=== PATIENT | male | born 1930 | race Caucasian/White ===

== ENCOUNTER → 2018-09-21 08:18 | Day surgery (SDC) | payer MEDICARE, OTHER ==
[~2018-09-21 08:18] MED LIST: Heparin 2 UNITS/ML IVPREMIX* 3,000 UNIT/1,500 ML BAG IV ONE; Heparin(*) 1000 UNIT/ML 10 ML VIAL CATH LAB IV ONE; Iohexol 350 (CONTRAST) 200 ML MDV IV ONE; Lidocaine 1% INJ* 10 MG/ML 30 ML SDV ONE; Midazolam* 1 MG/ML 5 ML VIAL (5 MG) ONE; NS 0.9% 1000 ML** 1,000 ML IV SCH; VERAPAMIL 2.5 MG/ML 2 ML VIAL ** 5 mg/2 ml ONE; fentaNYL* 50 MCG/ML 2 ML VIAL (100 MCG VIAL) ONE; nitroGLYCERIN DRIP* 25,000 MCG/250 ML BTL ONE
[2018-09-21 13:43] VITALS: BP 117/60
--- NOTE | 2018-09-22 14:04 | CATH ---
"*[facility]* [place] [address] Main: [phone] [email or web address] Cardiac Catheterization Patient: Mk Conroy : 1930 Study Date: 09/21/2018 Age: 88 Gender: M HR: Height: 70 in /177.8 cm BSA: 1.93 m^2 Weight: 165 lb /75 kg BMI: 23.7 kg/m^2 Business Banking Representative: Miranda Westbrook MD Referring Physician: Jayda Magaña MD - Left coronary angiography. - Right coronary angiography. Summary: 1. LAD: Proximal vessel lesion: There is a 50% stenosis. Mid-vessel lesion: There is a 50% stenosis. 2. Ramus intermedius: Proximal vessel lesion: There is a 50% stenosis. 3. Left circumflex: Distal vessel lesion: There is an 80% stenosis. 4. Lateral 1st obtuse marginal: Lesion: There is a 100% stenosis. 5. Right posterior descending: Mid-vessel lesion: There is a 90% stenosis. 6. 1st right posterolateral: Lesion: There is a 65% stenosis. 7. Mod-severe multilesion multivessel disease. History: Atrial fibrillation. Arrhythmia. Stable angina. 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 Aortic valve disease. Mitral valve disease. Aortic stenosis. Functional status: CCS class II (slight limitation of ordinary activity). Risk factors: Hypertension. Dyslipidemia. Family history is significant for coronary artery disease. Medications: The patient received no antianginal therapy in the last two weeks. Labs, prior tests, procedures, and surgery: Blood tests: International normalized ratio (INR) of 1.15. Serum potassium (K) of 4.7 mEq/l. Serum sodium (Na) of 140 mEq/l. Serum creatinine (current admission) of 0.94 mg/dl. Blood urea nitrogen of 16 mg/dl. Glucose of 103 mg/dl. Platelet count of 88 th/ul. White blood cell count (WBC) of 0.01 th/ul. Red blood cell count (RBC) of 5170 th/ul. Hematocrit of 50 %. Hemoglobin (pre-procedure) of 16.8 g/dl. Study data: Study status: Cardiac cath: elective. Location: Catheterization laboratory. Consent: The risks, benefits, and alternatives to the procedure were explained to the patient and/or their healthcare internet sales representative and written informed consent was obtained. All available pre-procedure labs were reviewed. Height: 177.8 cm. 70 in. Weight: 75 kg. 165 lb. Body surface area: 1.93 m^2. Body mass index: 23.7 kg/m^2. Procedure: 1. Initial setup. The patient was brought to the laboratory. Surface ECG leads, blood pressure measurements, and pulse oximetric signals were monitored. A baseline seven lead ECG was recorded. A time out was observed per protocol. 2. Skin preparation. The planned puncture sites were prepped and draped in the usual sterile manner. 3. Local anesthesia. 1% lidocaine was administered. 4. Local anesthesia. 1% lidocaine (1 ml) was administered. 5. Right radial artery access. A 6F Glidesheath Slender sheath was advanced into the vessel. 6. Selective left coronary angiography. A 5F TIG 4.0 catheter was advanced into the left coronary vessel ostium under fluoroscopic guidance. Contrast was injected. Images were obtained in multiple projections. 7. Selective right coronary angiography. A 5F FR 4.0 Impulse catheter was advanced into the right coronary vessel ostium under fluoroscopic guidance. Contrast was injected. Images were obtained in multiple projections. 8. Right radial artery hemostasis. Vessel closure was achieved with a Regular Vasc Band device. Hemostasis was successfully obtained. Study completion: Minimal estimated blood loss. All catheters inserted during the procedure were removed. There were no apparent complications. Administered medications: VERSED (Midazolam), 0.5mg, IV. Fentanyl, 25mcg, IV. (Radial) Nitroglycerin, 300mcg, intra-arterially. (Radial) Verapamil, 3mg, intra-arterially. (Radial) Heparin, 3,000units, intra-arterially. NaCl 0.9% , infusion , at a rate of 100 ml/hr. Contrast: Omnipaque 350 65 ml (total dose). Omnipaque 350 135 ml (wasted). Radiation: Fluoroscopy dose: 88.5 cGy. Discharge: The patient tolerated the procedure well and was discharged from the lab in stable condition. Findings Coronary arteries: The coronary circulation is right dominant. The right coronary gives rise to 1 posterolateral. Left main: Patent. LAD: The proximal vessel is heavily calcified. Proximal vessel lesion: There is a 50% stenosis. Mid-vessel lesion: There is a 50% stenosis. 1st diagonal: Proximal vessel lesion: There is a 40% stenosis. Ramus intermedius: Proximal vessel lesion: There is a 50% stenosis. Left circumflex: The middle portion of the vessel is moderately calcified. Distal vessel lesion: There is an 80% stenosis. Lateral 1st obtuse marginal: Lesion: There is a 100% stenosis. Right coronary: The proximal vessel is moderately calcified. Right posterior descending: Mid-vessel lesion: There is a 90% stenosis. 1st right posterolateral: Lesion: There is a 65% stenosis. Hemodynamics: + + + |Stage description |Condition 1 -| + + + |Arterial pressure s/d (m)|109/59 (81) | + + + Prepared and electronically signed by Miranda Westbrook MD 09/22/2018 14:03"
== END | disposition home or self-care (01) ==
LOC: CHICATH 08:18
PROVIDERS: ATTEND Internal Medicine Cardiovascular Disease
DX: I08.3 Combined rheumatic disorders of mitral, aortic and tricuspid valves (principal); I25.119 Atherosclerotic heart disease of native coronary artery with unspecified angina pectoris; I48.91 Unspecified atrial fibrillation; I10 Essential (primary) hypertension; E78.5 Hyperlipidemia, unspecified
CPT/HCPCS: 93454; 99156; J1644; J2250; J3010

== ENCOUNTER 2018-11-02 13:36 | Observation (INO) | payer MEDICARE, OTHER ==
--- NOTE | 2018-11-02 14:43 | ED ---
Dizziness - History Of Current Complaint Chief Complaint: EDGeneral Stated Complaint: BP ISSUE PER PT Time Seen by Provider: 11/02/18 14:42 Hx Obtained From: Patient - Allergies/Home Medications Allergies/Adverse Reactions: Allergies Allergy/AdvReac Type Severity Reaction Status Date / Time No Known Allergies Allergy Verified 09/01/18 07:38 PMH/Surg Hx/FS Hx/Imm Hx Endocrine/Hematology History: Denies: Hx Diabetes Cardiovascular History: Reports: Hx Coronary Artery Disease, Hx Hypercholesterolemia, Hx Hypertension, Hx Valvular Heart Disease Denies: Hx Angina, Hx Myocardial Infarction, Hx Pacemaker/ICD Respiratory History: Denies: Hx Asthma, Hx Chronic Obstructive Pulmonary Disease (COPD) History: Denies: Hx Chronic Renal Failure Sensory History: Reports: Hx Contacts or Glasses - Glasses with daughter, Hx Hearing Aid Denies: Hx Cataracts Comment Only: Hx Deafness - Pt states he left hearing aids at home Opthamlomology History: Reports: Hx Contacts or Glasses - Glasses with daughter Denies: Hx Cataracts Infectious Disease History: No Infectious Disease History: Denies: Traveled Outside the [place] in Last 30 Days - Social History Alcohol Use: Occasionally Alcohol Amount: 1 glass of wine Substance Use Type: Reports: None Smoking Status (MU): Former Smoker Type: Cigarettes Have You Smoked in the Last Year: No Physical Exam Vital Signs On Initial Exam: Initial Vitals Temp Pulse Resp BP Pulse Ox 98.1 F 89 16 142/87 97 11/02/18 13:37 11/02/18 13:37 11/02/18 13:37 11/02/18 13:37 11/02/18 13:37 Diagnostics - Vital Signs Vital Signs Temp Pulse Resp BP Pulse Ox 11/02/18 14:25 120/60 11/02/18 13:37 98.1 F 89 16 142/87 97 - Laboratory Lab Statement: Any lab studies that have been ordered have been reviewed, and results considered in the medical decision making process. Discharge - Discharge Plan Referrals: Adali Davis MD [Primary Care Provider] -
[2018-11-02 15:12] LABS: ABS Eosinophils 0.2 10^3/ul (0-0.6); ABS Lymphocytes 2.6 10^3/ul (1.0-4.8); ABS Monocytes 0.5 10^3/ul (0-0.8); Eosinophil % 2.2 %; Hematocrit 43 % (42-52); Hemoglobin 14.8 g/dL (14.0-18.0); Lymphocyte % 30.7 %; Mean Corpuscular HGB Conc 34 g/dL (31-36); Mean Corpuscular Hemoglobin 33 pg (27-31); Mean Corpuscular Volume 95 fL (80-94); Nucleated Red Blood Cells % 0.1; Platelet Count 78 10^3/uL (150-450); Red Blood Count 4.56 10^6 /uL (4.18-5.48); Red Cell Distribution Width 15 % (10-15); White Blood Count 8.3 10^3/uL (3.5-10.8)
[2018-11-02 15:13] LABS: Activated Partial Thrombo Time 41.6 seconds (26.0-38.0); INR 1.29 (0.82-1.09)
--- NOTE | 2018-11-02 15:20 | ED ---
Dizziness - HPI Summary HPI Summary: The patient is an 88 y/o M presenting to [facility] with a chief complaint of sudden onset dizziness/lightheadedness followed by hypotension this morning. 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 He held on to the counter with the symptoms lasting for about a minute. He then took his BP on a machine at home, and it read SPB in the 80s and DBP in the 40s, but he usually has BP in the range of 120/70 mmHG. He repeated the BP, but it continued to stay low at home. He is feeling better in the ED. His stores assistant is Dr. Magaña. He currently has a Holter monitor. PMHx: afib, CAD, HLD, HTN, valvular heart disease, TAVR, Former smoker , occasional EtOH, no substance use. While in the room, ED Machine BP: 157/111, Patient's Machine BP: 148/74. - History Of Current Complaint Chief Complaint: EDGeneral Stated Complaint: BP ISSUE PER PT Time Seen by Provider: 11/02/18 14:42 Hx Obtained From: Patient Onset/Duration: Suddenly Timing: Hours Severity Initially: Moderate Severity Currently: Mild Character: Lightheaded, Dizzy Alleviating Factor(s): Rest Associated Signs And Symptoms: Positive: Other: - measured hypotension - Allergies/Home Medications Allergies/Adverse Reactions: Allergies Allergy/AdvReac Type Severity Reaction Status Date / Time No Known Allergies Allergy Verified 09/01/18 07:38 PMH/Surg Hx/FS Hx/Imm Hx Endocrine/Hematology History: Denies: Hx Diabetes Cardiovascular History: Reports: Hx Atrial Fibrillation, Hx Coronary Artery Disease, Hx Hypercholesterolemia, Hx Hypertension, Hx Valvular Heart Disease Denies: Hx Angina, Hx Myocardial Infarction, Hx Pacemaker/ICD Respiratory History: Denies: Hx Asthma, Hx Chronic Obstructive Pulmonary Disease (COPD) History: Denies: Hx Chronic Renal Failure Sensory History: Reports: Hx Contacts or Glasses - Glasses with daughter, Hx Hearing Aid Denies: Hx Cataracts Comment Only: Hx Deafness - Pt states he left hearing aids at home Opthamlomology History: Reports: Hx Contacts or Glasses - Glasses with daughter Denies: Hx Cataracts - Surgical History Surgical History: Yes Surgery Procedure, Year, and Place: 2018 in [place] Infectious Disease History: No Infectious Disease History: Denies: Traveled Outside the [place] in Last 30 Days - Family History Known Family History: Positive: Cardiac Disease - Social History Alcohol Use: Occasionally Alcohol Amount: 1 glass of wine Substance Use Type: Reports: None Hx Tobacco Use: Yes Smoking Status (MU): Former Smoker Type: Cigarettes Have You Smoked in the Last Year: No Review of Systems Positive: Other - hypotension (at home) Neurological: Other - dizziness, lightheaded All Other Systems Reviewed And Are Negative: Yes Physical Exam - Summary Physical Exam Summary: Constitutional: Well-developed, Well-nourished, Alert. (-) Distressed Skin: Warm, Dry HENT: Normocephalic; Atraumatic Eyes: Conjunctiva normal Neck: Musculoskeletal ROM normal neck. (-) JVD, (-) Stridor, (-) Nuchal rigidity Cardio: Rhythm regular, rate normal, Crescendo decrescendo murmur; Intact distal pulses; Radial pulses are 2+ and symmetric. (-) Murmur Pulmonary/Chest wall: Effort normal. (-) Respiratory distress, (-) Wheezes, (-) Rales Abd: Soft, (-) tenderness, (-) Distension, (-) Guarding, (-) Rebound Musculoskeletal: (-) Edema Lymph: (-) Cervical adenopathy Neuro: Alert, Oriented x3 Psych: Mood and affect Normal Triage Information Reviewed: Yes Vital Signs On Initial Exam: Initial Vitals Temp Pulse Resp BP Pulse Ox 98.1 F 89 16 142/87 97 11/02/18 13:37 11/02/18 13:37 11/02/18 13:37 11/02/18 13:37 11/02/18 13:37 Vital Signs Reviewed: Yes Diagnostics - Vital Signs Vital Signs Temp Pulse Resp BP Pulse Ox 11/02/18 14:25 120/60 11/02/18 13:37 98.1 F 89 16 142/87 97 - Laboratory Lab Results: Lab Results 11/02/18 11/02/18 Range/Units 14:57 14:57 WBC 8.3 (3.5-10.8) 10^3/uL RBC 4.56 (4.18-5.48) 10^6 /uL Hgb 14.8 (14.0-18.0) g/dL Hct 43 (42-52) % MCV 95 H (80-94) fL MCH 33 H (27-31) pg MCHC 34 (31-36) g/dL RDW 15 (10-15) % Plt Count 78 L (150-450) 10^3/uL MPV 10.0 (7.4-10.4) fL Neut % (Auto) 60.2 % Lymph % (Auto) 30.7 % Bath % (Auto) 6.3 % Eos % (Auto) 2.2 % Baso % (Auto) 0.6 % Absolute Neuts (auto) 5.0 (1.5-7.7) 10^3/ul Absolute Lymphs (auto) 2.6 (1.0-4.8) 10^3/ul Absolute Monos (auto) 0.5 (0-0.8) 10^3/ul Absolute Eos (auto) 0.2 (0-0.6) 10^3/ul Absolute Basos (auto) 0.0 (0-0.2) 10^3/ul Absolute Nucleated RBC 0.0 10^3/ul Nucleated RBC % 0.1 INR (Anticoag Therapy) 1.29 H (0.82-1.09) APTT 41.6 H (26.0-38.0) seconds Result Diagrams: 11/02/18 14:57 11/02/18 14:57 Lab Statement: Any lab studies that have been ordered have been reviewed, and results considered in the medical decision making process. - Radiology CXR Radiology Interpretation Completed By: Radiologist Summary of Radiographic Findings: Impression: Cardiomegaly. No pleural effusion is noted. No interstitial edema is noted. - CT Chest/Thorax CTA CT Interpretation Completed By: Radiologist Summary of CT Findings: Impression: 1. No pulmonary embolism. 2. Congestive heart failure is suggested by the patient's cardiomegaly, unchanged small left pleural effusion and reflux of contrast into the liver. 3. Status post aortic valve repair. 4. Coronary artery calcific lesions. ED physician has reviewed this report. - EKG 1448 Cardiac Rate: Other Rate - 95 bpm EKG Rhythm: Atrial Fibrillation Summary of EKG Findings: Atrial fibrillation at 95 bpm. LBBB (intermittent hx, per Dr. Martinez). No STEMI. Re-Evaluation - Re-Evaluation First Eval Re-Evaluation Time: 15:25 Comment: Patient states he had surgery in [place]. Second Eval Re-Evaluation Time: 14:50 Comment: Dr. Kunz recommends admission after consulting with the patient. He agrees with this plan. Dizzy Course/Dx - Course Course Of Treatment: 88 y/o male w hx TAVR in [place] several days ago who presents with near syncopal episode and attention. Blood pressure here in the 130s, no acute distress and exam. Well check EKG and labs, discussed with his clinical immunologist in [place], stores assistant here. Per the records patient has a history of bradycardia arrhythmia for which he was taken off his beta delphine. Denies current CP and feels much improved - Diagnoses Provider Diagnoses: Hypotension, Near syncope - Provider Notifications Discussed Care Of Patient With: Miranda Westbrook - interventional cardiology Time Discussed With Above Provider: 15:23 Instructed by Provider To: Other - I discussed the patient's case with Dr. Westbrook concerning the patient's EKG; he notes that the patient had surgery in [place]. At [address] Martinez, who performed the TAVR on the patient , and he states that the LBBB is chronic. He recommends speaking with Dr. Kunz , cardiology. Dr. Kunz agrees to come see the patient at 1544. At 1448, Dr. Kunz suggests admission based on the patient's symptomology. He also recommends Chest/Thorax CTA and Eliquis. I spoke with Dr. Day, hospitalist, and she accepts the patient for admission at 1723. Discharge - Sign-Out/Discharge Documenting (check all that apply): Patient Departure - Patient is accepted for admission by Dr. Day. Patient Received Moderate/Deep Sedation with Procedure: No - Discharge Plan Condition: Stable Disposition: ADMITTED TO [facility] Referrals: Adali Davis MD [Primary Care Provider] - - Billing Disposition and Condition Condition: STABLE Disposition: Admitted to [facility] - Attestation Statements Document Initiated by Scribe: Yes Documenting Scribe: Teresa Faustin Provider For Whom Scribe is Documenting (Include Credential): Dr. Dario Sánchez MD Scribe Attestation: I, Teresa Faustin, scribed for Dr. Dario Sánchez MD on 11/02/18 at 1925. Scribe Documentation Reviewed: Yes Provider Attestation: The documentation as recorded by the scribe, Teresa Faustin accurately reflects the service I personally performed and the decisions made by me, Dr. Dario Sánchez MD Status of Scribe Document: Viewed
[2018-11-02 15:25] LABS: Troponin I 0.04 ng/mL (<0.04)
[2018-11-02 15:26] LABS: ALT 12 U/L (7-52); AST 19 U/L (13-39); Albumin 3.9 g/dL (3.2-5.2); Albumin/Globulin Ratio 1.3 (1-3); Alkaline Phosphatase 98 U/L (34-104); Anion Gap 6 mmol/L (2-11); BUN/Creatinine Ratio 15.5 (8-20); Blood Urea Nitrogen 16 mg/dL (6-24); CO2 Carbon Dioxide 29 mmol/L (22-32); Calcium 9.5 mg/dL (8.6-10.3); Chloride 105 mmol/L (101-111); EGFR African American 82.7 (>60); EGFR Non-African American 68.3 (>60); Globulin 3.1 g/dL (2-4); Glucose 98 mg/dL (70-100); Magnesium 1.8 mg/dL (1.9-2.7); Potassium 4.4 mmol/L (3.5-5.0); Sodium 140 mmol/L (135-145)
[2018-11-02] MEDS ORDERED: Apixaban* 5 MG TAB PO ONE (16:40)
[2018-11-02] MEDS ORDERED: Iodixanol* (CONTRAST) 320 MG/ML 100 ML SDV IV ONE (16:46)
[2018-11-02 17:03] LABS: CRP High Sensitivity 6.61 mg/L (<2.00)
[2018-11-02] MEDS ORDERED: Magnesium Sulfate 2 GM IV* 2 GM/50 ML BAG IVPB ONE (18:02)
--- NOTE | 2018-11-02 18:27 | CONS ---
CC: Dr. Magaña; Dr. Kunz * CARDIOLOGY CONSULTATION NOTE: DATE OF CONSULT: 11/02/18 PATIENT OF: Dr. Magaña. CONSULTING PHYSICIAN: Dr. Dario Sánchez. REASON FOR EVALUATION: Lightheadedness, hypotension. HISTORY OF PRESENT ILLNESS: This is a very pleasant 88-year-old gentleman who has coronary artery disease, aortic stenosis, MR, and recently underwent a TAVR with Dr. Martinez on 10/27/18. At that time, he had a 29-mm S3 valve placed. He had chronic AFib with a slow response and his atenolol was held. He also had an intermittent left bundle. No pauses were noted. It was decided to hold his atenolol and follow up as an outpatient. A Zio was placed. He had an echo performed postprocedure, which showed an improvement in his EF to 55%. It also showed severe LVH, severe enlargement of the left atrium, dilated RV, trace AI with a prosthetic valve, gradients normal for the valve type and size, moderate- to- severe MR. MR appears to be severe, hitting the roof of a very dilated left atrium. Moderate TR, estimated RV/RA pressure gradients 30 mm. He was discharged on 10/29/18, and actually came home to [place] on Wednesday, . He said he was feeling fairly well with no dyspnea on exertion. He says in the past he had dyspnea on exertion, climbing a flight of stairs, or going longer distances. He has been able to get around the house without a problem. Today, he went out and had blood drawn this morning after having orange juice and coffee. He came home to have lunch. After lunch, he decided to help with the safety risk lead, and bending over and standing up to put the dishes away, he noticed he was lightheaded. He denied any vertigo. He denied any chest pain or diaphoresis. He took his blood pressure and found that his blood pressure was 80/40 with heart rates in the 40s. He sat and rested for an hour and a half. He says his blood pressure gradually improved, but because of those findings, he came to the emergency room. Here, he was noted to have blood pressures initially of 142 and 120/60, which have climbed to 160s/low 100s. He says that he did not take any of his medicines yet today. He usually takes them at noon and then again in the evening. He denies any syncope. No chest pain. No palpitations. No orthopnea or PND. No diarrhea, fevers, chills , or sweats. It does not sound like he ate or drank much today except for a couple of cups of decaffeinated coffee and orange juice. PAST MEDICAL HISTORY: Includes atrial fibrillation, hypertension, hyperlipidemia, remote tobacco use discontinued in his 40s, coronary artery disease, intermittent left bundle-branch block, atrial fibrillation, and MR. Apparently, he is anticipating possible correction of the mitral regurgitation and percutaneous revascularization at a future date depending on his progress. PAST SURGICAL HISTORY: Includes hernias bilaterally and TAVR earlier this month. MEDICATIONS: His medications according to the discharge summary include: 1. Amoxicillin p.r.n. 2. Apixaban 5 mg b.i.d. 3. Zetia 10 mg daily. 4. Finasteride 5 mg daily. 5. Lisinopril 40 mg a day. 6. Rosuvastatin 10 mg a day. 7. Triamcinolone. ALLERGIES: He denies any allergies. SOCIAL HISTORY: He has about half a glass of wine on rare occasion. He discontinued tobacco use about 40 years ago. He drinks decaffeinated coffee. 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 REVIEW OF SYSTEMS: Review of systems x10 was negative except as above. PHYSICAL EXAM: He is a well-developed, well-nourished gentleman, appearing younger than stated age. Pulse of 88, blood pressure 172/89. Atraumatic, normocephalic. Extraocular muscles intact. Sclerae anicteric. Carotids 2+ with a right carotid bruit. No significant JVD. Cardiac: S1, S2 with a 1-2/6 systolic ejection murmur at the base and a 3/6 holosystolic murmur at the apex, irregular. There was a Zio monitor take to his chest. Chest was clear. No CVAT. Abdomen: Scaphoid abdomen. No hepatosplenomegaly. Femoral pulses are intact without bruits. Distal pulses are intact. No edema. Motor strength 5/ 5 bilaterally. Deep tendon reflexes 2/4. Alert and oriented x3. Negative Homans sign. DIAGNOSTIC STUDIES/LAB DATA: Include a CBC with hemoglobin of 14.8, hematocrit of 43, platelet count low at 78. Troponin of 0.04. Magnesium 1.8, potassium of 4.4, BUN of 16, creatinine of 1.03. Lactic acid 1.5. EKG revealed atrial fibrillation with an IVCD, poor R-wave progression and PVCs. Chest x-ray revealed no infiltrates; however, there was cardiomegaly. IMPRESSION AND PLAN: My impression is that Mr. Conroy had an episode of feeling dizzy, which was transient for a few seconds, but then he was noted to be hypotensive and persisted, possibilities include dehydration, medication effect, left ventricular dysfunction and arrhythmia including tachy or bradyarrhythmias, as well as ischemic heart disease or pulmonary embolism, which may be less likely in light of his stable O2 sats, but he is at risk based on his age and recent hospitalization and instrumentation. For the time being, I would recommend the followin. Would cautiously restart a low dose of short-acting SENDY inhibitor. 2. Would consider gentle hydration. Would do this cautiously in light of his history of left ventricular dysfunction and mitral regurgitation. 3. We will try to replace his magnesium and potassium. 4. We will try to get the Zio interrogated. 5. I placed a call to Dr. Martinez. 6. Given that he has a left bundle and recently had an AVR, he is a risk for conducting system injury and may require a pacemaker at some point. 7. He is to be observed overnight. 8. He is to continue his apixaban. Further recommendations will depend on his clinical course. [id number]/[id number] #: [id number] MAY[place]
[2018-11-02] MEDS ORDERED: Lisinopril TAB* 10 MG PO ONE ×2 (18:31→18:35)
[2018-11-02] MEDS ORDERED: hydrALAZINE IV* 20 MG/ML VIAL IV SLOW PU ONE (18:33)
[2018-11-02 19:59] LABS: Troponin I 0.04 ng/mL (<0.04)
[2018-11-02] MEDS ORDERED: NON FORMULARY MED* (Apixaban [Eliquis] 5 MG) PO SCH (21:00)
--- NOTE | 2018-11-02 21:11 | HP ---
ADDENDUM NOW INCLUDED ON THIS REPORT CC: Dr. Adali Davis; Dr. Kunz; Dr. Magaña * HISTORY AND PHYSICAL: DATE OF ADMISSION: 11/02/18 PRIMARY CARDIOLOGISTS: Dr. Magaña, Dr. Kunz. PRIMARY CARE PROVIDER: Dr. Adali Davis. CHIEF COMPLAINT: Lightheadedness, hypotension. HISTORY OF PRESENT ILLNESS: This is an 88-year-old male with history of atrial fibrillation, history aortic stenosis, who underwent a TAVR procedure in [place] on 10/27/18, hypertension, coronary artery disease with three-vessel disease, hyperlipidemia, who presents to the emergency room with what is described as possible near syncopal episode. 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 He took a break from his work and sat down and the lightheadedness resolved. However, at that time, he started to check his blood pressure with his blood pressure cuff and noted that his blood pressure was low 105/60, heart rate of 87 which then when he rechecked it was 85/42 and then subsequently 95/60. During that time, the heart rate ranged from 83 through 95. The patient never had any loss of consciousness, no headache. Throughout that entire episode, he did not have any chest pain, no palpitations, no nausea, no vomiting, no diaphoresis. He has no fevers, no chills. In the emergency room, the patient was seen and evaluated, Dr. Kunz was consulted who had recommended ruling out a pulmonary embolism with a chest CTA, and Dr. Kunz also recommended that we try to get an interrogation of he ZIO that the patient has on him as well as discuss the case with Dr. Martinez, the [place] surgeon who performed the TAVR procedure. Subsequently, the hospitalist service was called. PAST MEDICAL HISTORY: Includes: 1. Atrial fibrillation. 2. Aortic stenosis. 3. Hypertension. 4. Hyperlipidemia. 5. Mitral regurgitation. 6. Coronary artery disease. 7. Tobacco use. PAST SURGICAL HISTORY: Includes: 1. Transaortic valvular replacement on 10/27/18 in [place], [place]. 2. Hernia repair. 3. Tonsillectomy. MEDICATIONS: Home medications include: 1. Triamcinolone 1 topical b.i.d. 2. Rosuvastatin 10 mg daily. 3. Lisinopril 40 mg daily. 4. Finasteride 5 mg daily. 5. Ezetimibe 10 mg daily. 6. Eliquis 5 mg b.i.d. The patient reports that he did not take his lisinopril today or his Eliquis, Eliquis was administered in the emergency room. ALLERGIES: No known drug allergies. FAMILY HISTORY: Mother: Cancer. Father: Heart attack. SOCIAL HISTORY: He lives at home with his , former smoker, no alcohol use. REVIEW OF SYSTEMS: As per the HPI. Otherwise, he does not have any fevers, no chills, no cough, no shortness of breath, no rashes or lesions, no abdominal pain, no nausea, no vomiting, no diarrhea. No headaches, no focal neurological weakness. Otherwise, review of systems is per the HPI, otherwise is negative. PHYSICAL EXAMINATION GENERAL: This is an elderly male, lying in the ER stretcher, in no acute distress. VITAL SIGNS: Blood pressure currently is 159/90, heart rate of 85, respiratory rate of 16, saturation 95% on room air, temperature of 98.4 Fahrenheit. HEENT: Pupils are equal, round, reactive to light. Atraumatic, normocephalic. Extraocular movements are intact. There is no nystagmus. NECK: There is a carotid bruit heard on the right side. There is no JVD. LUNGS: There is no tachypnea, no use of accessory muscles. There is no wheezing, rales, or rhonchi. HEART: There is no chest wall tenderness. S1, S2 present. 2/6 systolic murmur best heard at the apex. Irregularly irregular. There is a ZIO monitor on his chest that we are going to be removing so the family can send it out for interrogation. ABDOMEN: Bowel sounds are normoactive in all 4 quadrants. Abdomen is soft, nontender, nondistended. EXTREMITIES: Pulses 2+ at the radial region. There is no lower extremity edema , no calf tenderness. NEUROLOGICAL: Alert and oriented x3. Motor is 5/5 in all 4 extremities. There is no lower extremity edema with no calf tenderness. DIAGNOSTIC STUDIES/LAB DATA: CTA was done which is negative for acute pulmonary embolism. There is congestive heart failure by the patient's cardiomegaly and unchanged small left pleural effusion and reflux to liver, status post aortic valve repair, and coronary artery calcific lesions. The patient also underwent a chest x-ray which shows cardiomegaly with no pleural effusion and no interstitial edema noted. The patient also underwent an EKG today which showed left bundle-branch block. Left bundle-branch block is not new. Heart rate of 95 with atrial fibrillation rhythm. No ST elevation. Lab work shows a troponin of 0.04, shows magnesium of 1.8 with total bilirubin of 1.5, sodium of 140, potassium of 4.4, chloride of 105, bicarb of 29, BUN of 16, creatinine of 1.03, INR of 1.29. CBC shows WBC of 8.3, hemoglobin of 14.8, hematocrit of 43, platelets of 78. IMPRESSION AND PLAN: 1. What looks like a near syncopal episode: At this point, I have ordered orthostatic vital signs. Hold off on IV fluids as the patient does appear to be euvolemic. The patient had an echocardiogram done most recently in August of 2018 which showed an ejection fraction of 45% to 50%. The patient subsequently has underwent aortic valve replacement. 2. Slightly elevated troponin: EKG does not appear remarkable for ST elevation myocardial infarction. The patient never had any chest pain, this could be demand related due to his episode of hypotension. I will check a second and third troponin. The patient was already evaluated by Cardiology. Continue his home dose Eliquis. 3. Hypertension: Continue his lisinopril. The patient has not taken his lisinopril this morning, I have ordered 20 mg of lisinopril to be given now and then resume 40 mg in the morning. Should the blood pressure be high during the hospital course, consider hydralazine as needed. Currently, the beta-delphine is on hold due to possible high risk of AV eduar block versus a heart block in the patient has undergone TAVR procedure. 4. Atrial fibrillation: Anticoagulation with Eliquis, currently the heart rate is controlled. His home dose of atenolol was discontinued during his hospital stay in [place], [place], for his TAVR procedure. 5. Hypomagnesemia: Repletion has been ordered. 6. Elevated bilirubin: I will order repeat blood work for the morning. I will also check a second and third troponin. Cardiology consultation has already been requested. ADDENDUM: The patient's healthcare proxy is , Odalis and also the daughter is the secondary proxy. The patient is a full code. [id number]/C[facility] #: [id number]/CPS #: [id number] MTDD
--- NOTE | 2018-11-02 21:11 | HP ---
HISTORY AND PHYSICAL: ADDENDUM: The patient's healthcare proxy is , Odalis and also the daughter is the secondary proxy. The patient is a full code. [id number]/CPS #: [id number] MTDD
[2018-11-02] MEDS: TRIAMCINOLONE PASTE 0.1% TOPICAL SCH (22:16)
[2018-11-03 08:18] LABS: Albumin 3.5 g/dL (3.2-5.2); Albumin/Globulin Ratio 1.3 (1-3); BUN/Creatinine Ratio 16.5 (8-20); Calcium 8.7 mg/dL (8.6-10.3); EGFR African American 88.6 (>60); EGFR Non-African American 73.2 (>60); Globulin 2.7 g/dL (2-4); Potassium 4.6 mmol/L (3.5-5.0); Total Bilirubin 1.2 mg/dL (0.2-1.0); Total Protein 6.2 g/dL (6.4-8.9)
[2018-11-03] MEDS ORDERED: Lisinopril TAB* 10 MG PO SCH (09:00)
[2018-11-03] MEDS: Finasteride TAB* 5 MG PO SCH (09:47)
[2018-11-03] MEDS: Apixaban* 5 MG TAB PO SCH ×2 (09:48→21:18)
[2018-11-03] MEDS: Ezetimibe TAB* 10 MG PO SCH (09:48)
[2018-11-03] MEDS: Atorvastatin* 20 MG TAB PO SCH (09:48)
[2018-11-03] MEDS: TRIAMCINOLONE PASTE 0.1% TOPICAL SCH ×2 (09:50→21:18)
--- NOTE | 2018-11-03 14:49 | PN ---
Subjective Date of Service: 11/03/18 Interval History: Pt feels well. Denies feeling lightheaded. Telem shows no arrhythmias Objective Active Medications: Apixaban (Eliquis*) 5 mg PO BID [facility] Last Admin: 11/03/18 09:48 Dose: 5 mg Atorvastatin Calcium (Lipitor*) 20 mg PO DAILY [facility]; Protocol Last Admin: 11/03/18 09:48 Dose: 20 mg Ezetimibe (Zetia Tab*) 10 mg PO DAILY [facility] Last Admin: 11/03/18 09:48 Dose: 10 mg Finasteride (Proscar Tab*) 5 mg PO DAILY [facility] Last Admin: 11/03/18 09:47 Dose: 5 mg Lisinopril (Prinivil Tab*) 20 mg PO DAILY [facility] Triamcinolone Acetonide (Triamcinolone 0.1% Paste *) 1 applic TOPICAL BID [facility] Last Admin: 11/03/18 09:50 Dose: 1 applic Vital Signs - 8 hr 11/03/18 11/03/18 11/03/18 06:55 06:57 06:59 Temperature 98 F Pulse Rate 81 82 89 Respiratory 16 Rate Blood Pressure 113/58 119/59 130/70 (mmHg) O2 Sat by Pulse 99 99 98 Oximetry 11/03/18 11:39 Temperature 97.6 F Pulse Rate 57 Respiratory 16 Rate Blood Pressure 128/76 (mmHg) O2 Sat by Pulse 98 Oximetry Oxygen Devices in Use Now: None Appearance: 88 yo m in nAD, aAOx3 Eyes: No Scleral Icterus, PERRLA Ears/Nose/Mouth/Throat: NL Teeth, Lips, Gums, Mucous Membranes Moist Neck: NL Appearance and Movements; NL JVP, Trachea Midline Respiratory: Symmetrical Chest Expansion and Respiratory Effort, Clear to Auscultation Cardiovascular: NL Sounds; No Murmurs; No JVD, RRR Abdominal: NL Sounds; No Tenderness; No Distention Lymphatic: No Cervical Adenopathy Extremities: No Edema, No Clubbing, Cyanosis Skin: No Rash or Ulcers, No Nodules or Sclerosis Neurological: Alert and Oriented x 3, NL Muscle Strength and Tone Result Diagrams: 11/02/18 14:57 11/03/18 07:33 Additional Lab and Data: Lab Results 11/02/18 11/02/18 Range/Units 14:57 14:57 WBC 8.3 (3.5-10.8) 10^3/uL RBC 4.56 (4.18-5.48) 10^6 /uL Hgb 14.8 (14.0-18.0) g/dL Hct 43 (42-52) % MCV 95 H (80-94) fL MCH 33 H (27-31) pg MCHC 34 (31-36) g/dL RDW 15 (10-15) % Plt Count 78 L (150-450) 10^3/uL MPV 10.0 (7.4-10.4) fL Neut % (Auto) 60.2 % Lymph % (Auto) 30.7 % Coal % (Auto) 6.3 % Eos % (Auto) 2.2 % Baso % (Auto) 0.6 % Absolute Neuts (auto) 5.0 (1.5-7.7) 10^3/ul Absolute Lymphs (auto) 2.6 (1.0-4.8) 10^3/ul Absolute Monos (auto) 0.5 (0-0.8) 10^3/ul Absolute Eos (auto) 0.2 (0-0.6) 10^3/ul Absolute Basos (auto) 0.0 (0-0.2) 10^3/ul Absolute Nucleated RBC 0.0 10^3/ul Nucleated RBC % 0.1 INR (Anticoag Therapy) 1.29 H (0.82-1.09) APTT 41.6 H (26.0-38.0) seconds Assess/Plan/Problems-Billing Assessment: 88 yo M s/p TAVR on 10/27/18 presented with near syncope - Patient Problems (1) Near syncope Comment: so far no evidence of cardiac arrythmias apart for known A. fib, but pt 's event monitor interrogation will not be back till 24-48 hr from now. As d/w Dr. Kunz, lisinopril dose was lowered. will not OBV on telem x 24 hr and c/ pt home to get another monitoring system from Dr Kunz's office right after d/c (2) Atrial fibrillation Comment: rate controlled (3) DVT prophylaxis Comment: cont Eliquis Status and Disposition: OBV
--- NOTE | 2018-11-03 20:45 | ECHO ---
*[facility]* [place] [address] Fax #: [phone] Transthoracic Echocardiogram Patient: Mk Conroy : 1930 Study Date: 11/03/2018 Age: 88 Gender: M HR: 61 bpm Height: 69 in /175.3 cm BSA: 1.86 m^2 Weight: 155.7 lb /70.8 kg BMI: 23 kg/m^2 *Senior [employer] Consultant: * Annia Gilbert RDCS RN *Referring Physician: * Balta Kunz MD *Reading Physician: * Balta Kunz MD Indications: Syncope. Valvular disease. History: Coronary artery disease. Aortic stenosis. Mitral regurgitation. Risk factors: Former tobacco use. Hypertension. Dyslipidemia. Labs, prior tests, procedures, and surgery: Transcatheter aortic valve replacement with 29mm S3 valve placed. Conclusions Summary: - Left ventricle: The cavity size is normal. Wall thickness is moderately increased. Systolic function is moderately reduced. The estimated ejection fraction is 30-35%. Systolic function is worse from the study of August 2018. Moderate diffuse hypokinesis. Severe hypokinesis of the basal-midinferolateral myocardium. - Right ventricle: The cavity size is mildly dilated. - Left atrium: The atrium is severely dilated. - Right atrium: The atrium is severely dilated. - Mitral valve: Prolapse. There is moderate to severe regurgitation. - Aortic valve: The peak systolic velocity is 1.63 m/sec. The mean systolic gradient is 5.0 mm Hg. The peak systolic gradient is 11.0 mm Hg. The valve area index by the velocity-time integral method is 1.62 cm^2/m^2. The valve area index by the peak velocity method is 1.73 cm^2/m^2. - Pericardium, extracardiac: There is a left pleural effusion. - Pulmonary arteries: Systolic pressure is mildly to moderately increased, estimated to be 44 mm Hg. Study data: Transthoracic echocardiogram. Procedure: Transthoracic echocardiography was performed. Image quality was good. Complete 2D, spectral Doppler, and color flow Doppler. Location: Bedside. Patient status: Observation. Patient room number: 452. The previous study was not available, so comparison is made to the report of August 2018. Rhythm: Atrial fibrillation, LBBB. Findings Left ventricle: The cavity size is normal. Wall thickness is moderately increased. Systolic function is moderately reduced. The estimated ejection fraction is 30-35%. Systolic function is worse from the study of August 2018. Moderate diffuse hypokinesis. Regional wall motion abnormalities: Severe hypokinesis of the basal-midinferolateral myocardium. Left ventricular diastolic function parameters are indeterminate. Right ventricle: The cavity size is mildly dilated. Systolic function is normal. Ventricular septum: The interventricular septum appears dyssynchronous related to LBBB. Left atrium: The atrium is severely dilated. Right atrium: The atrium is severely dilated. Mitral valve: The leaflets are mildly thickened. Prolapse. There is no evidence of stenosis. There is moderate to severe regurgitation. Aortic valve: Prior repair procedures include transcatheter aortic valve replacement. There is a bioprosthetic valve. It appears to be functioning normally. There is a new prosthetic valve in place since the study of August 2018. Stenosis severity has decreased in comparison with the study of August 2018. There is trace regurgitation. Tricuspid valve: The valve is structurally normal. There is no evidence of stenosis. There is moderate regurgitation. Pulmonic valve: The valve is structurally normal. There is no evidence of stenosis. There is mild to moderate regurgitation. Aorta: Aortic root: The aortic root is not dilated. Ascending aorta: The ascending aorta is not dilated. Aortic arch: The aortic arch is not dilated. Pericardium: There is no significant pericardial effusion. There is a left pleural effusion. Pulmonary arteries: Systolic pressure is mildly to moderately increased, estimated to be 44 mm Hg. Systemic veins: Inferior vena cava: Not visualized. Measurements Left ventricle Value Ref Aortic valve Value Ref RENEA, LAX 4.5 cm 4.2 - Pollo diam, ED 2.4 cm ---- 5.8 Pollo diam/bsa, ED 1.3 cm/m^2 ---- ESD, LAX 3.8 cm 2.5 - Peak v, S 1.63 m/sec ---- 4.0 VTI, S 31.0 cm ---- FS, LAX (L) 17 % 25 - 43 Mean grad, S 5.0 mm Hg ---- PW, ED (H) 1.3 cm 0.6 - Peak grad, S 11.0 mm Hg ---- 1.0 LVOT/AV, VTI ratio 0.73 ---- IVS/PW, ED 1.24 -------- SHAWN, VTI 3.01 cm^2 ---- E', lat pollo, TDI (L) 9.1 cm/sec >=10.0 SHAWN, Vmax 3.21 cm^2 -- -- E/e', lat pollo, TDI 14 -------- E', med pollo, TDI 7.8 cm/sec >=7.0 Mitral valve Value Re f E/e', med pollo, TDI 16 -------- Peak E 1.23 m/sec ---- E', avg, TDI 8.5 cm/sec -------- Decel time 146 ms ---- E/e', avg, TDI (H) 15 <=14 Peak grad, D 6.1 mm Hg -- -- ERO, PISA 0.35 cm^2 ---- LVOT Value Ref MR vol, PISA 51 ml ---- Diam, S 2.30 cm -------- MR fraction, PISA 35 % ---- Area 4.2 cm^2 -------- Peak sherita, S 1.26 m/sec -------- Pulmonic valve Value Ref VTI, S 22.5 cm -------- Peak v, S 0.67 m/sec ---- Peak grad, S 6 mm Hg -------- Peak grad, S 2.0 mm Hg ---- Mean grad, S 4 mm Hg -------- SV 93 ml -------- Tricuspid valve Value Ref SV/bsa 50 ml/m^2 -------- Peak RV-RA grad, S 36 mm Hg ---- Max TR sherita 2 m/sec ---- Ventricular septum Value Ref IVS, ED (H) 1.6 cm 0.6 - Aortic root Value Ref 1.0 Root diam 2.7 cm <4.0 Right ventricle Value Ref Ascending aorta Value Ref RENEA, LAX 3.6 cm -------- AAo AP diam, S 2.5 cm ---- RENEA minor ax, A4C (H) 3.9 cm 1.9 - mid 3.5 Aortic arch Value Ref Pressure, S 44 mm Hg -------- Arch diam 2.2 cm ---- Left atrium Value Ref Decending aorta Value Ref ML dim, A4C 5.7 cm -------- Blake peak sherita 0.32 m/sec ---- SI dim, A4C 7.0 cm -------- Vol/bsa, ES, 1-p (H) 69 ml/m^2 12 - 37 Pulmonary artery Value Ref A4C Pressure, S 44.0 mm Hg ---- Vol/bsa, ES, A/L (H) 79 ml/m^2 16 - 34 Right atrium Value Ref ML dim, ES, A4C (H) 5.7 cm 2.6 - 4.4 SI dim, ES, A4C (H) 7.0 cm 3.4 - 5.3 Estimated RAP 8 mm Hg -------- Legend: (L) and (H) izabella values outside specified reference range. Prepared and electronically signed by Balta Kunz MD 11/03/2018 20:43
[2018-11-03] MEDS: Triamcinolone 0.025% OINT * 15 GM TUBE TOPICAL SCH (22:26)
[2018-11-04 07:42] LABS: Hematocrit 41 % (42-52); Mean Corpuscular HGB Conc 35 g/dL (31-36); Mean Corpuscular Hemoglobin 32 pg (27-31); Mean Corpuscular Volume 94 fL (80-94); Mean Platelet Volume 11.1 fL (7.4-10.4); Platelet Count 69 10^3/uL (150-450); Red Blood Count 4.32 10^6 /uL (4.18-5.48); Red Cell Distribution Width 15 % (10-15)
[2018-11-04 07:53] LABS: BUN/Creatinine Ratio 17.4 (8-20); C Reactive Protein 4.91 mg/L (<8.01); CRP High Sensitivity 3.93 mg/L (<2.00); Calcium 8.7 mg/dL (8.6-10.3); EGFR African American 101.8 (>60); EGFR Non-African American 84.1 (>60); Potassium 4.2 mmol/L (3.5-5.0)
[2018-11-04] MEDS ORDERED: Lisinopril TAB* 10 MG PO SCH (09:00)
[2018-11-04 09:31] LABS: ABS Eosinophils 0.2 10^3/ul (0-0.6); ABS Lymphocytes 2.4 10^3/ul (1.0-4.8); ABS Monocytes 0.4 10^3/ul (0-0.8); ABS Neutrophils 2.9 10^3/ul (1.5-7.7); Large Platelets Present; Lymphocyte % 40.3 %; Nucleated Red Blood Cells % 0.1
[2018-11-04 09:46] LABS: Erythrocyte Sed Rate 8 mm/Hr (0-19)
[2018-11-04] MEDS: Finasteride TAB* 5 MG PO SCH (10:51)
[2018-11-04] MEDS: Ezetimibe TAB* 10 MG PO SCH (10:51)
[2018-11-04] MEDS: Apixaban* 5 MG TAB PO SCH (10:51)
[2018-11-04] MEDS: Atorvastatin* 20 MG TAB PO SCH (10:52)
[2018-11-04] MEDS: Triamcinolone 0.025% OINT * 15 GM TUBE TOPICAL SCH (10:54)
[2018-11-04 11:46] VITALS: BP 123/63
--- NOTE | 2018-11-04 15:16 | TRS ---
CC: Dr. Adali Davis; Dr. Martinez, Cardiology Department, [facility], [place], [place]; Dr. Kunz * DISCHARGE/TRANSFER SUMMARY: DATE OF ADMISSION: 11/02/18 DATE OF ANTICIPATED TRANSFER: To [facility], 11/04/18. PRIMARY CARE PROVIDER: Dr. Adali Davis. DISPOSITION AT DISCHARGE: Transfer to [facility]. CONDITION AT DISCHARGE: Guarded. TRANSFER DIAGNOSES: 1. Paroxysmal ventricular tachycardia. 2. Near syncope. SECONDARY DIAGNOSES: 1. History of transcatheter aortic valve replacement performed at [facility] on 10/27/[address] Martinez. 2. History of chronic atrial fibrillation. 3. Hypertension. 4. Hyperlipidemia. 5. Mitral regurgitation. 6. Coronary artery disease. CURRENT MEDICATIONS: At the time of transfer include: 1. Lisinopril 20 mg daily. 2. Finasteride 5 mg daily. 3. Zetia 10 mg daily. 4. Atorvastatin 20 mg daily. 5. Apixaban 5 mg b.i.d. 6. Triamcinolone ointment 1 application b.i.d. CONSULTATION DURING THE HOSPITAL STAY: Included Dr. Kunz from Cardiology. DIAGNOSTIC STUDIES/LAB DATA: On 11/04/18, sodium of 136, potassium 4.2, chloride 106, carbon dioxide 20, BUN 15, creatinine 0.86. C-reactive protein was 4.9. CBC: White blood cell count of 6.0, hemoglobin of 14.0, hematocrit of 41, and platelets of 69, which appears to be chronic in this patient. CT angiogram of the chest obtained on 11/02/18, impression: "No pulmonary embolism. Congestive heart failure suggested by the patient's cardiomegaly, unchanged small left pleural effusion and reflux of contrast into the liver. Status post aortic valve repair. Coronary artery calcific lesions." Transthoracic echocardiogram obtained on 11/03/18 showed EF of 30% to 35% with systolic function moderately reduced with [id number] mitral regurgitation and mitral valve prolapse, severely dilated right atrium, increased pulmonary pressures at 44 mmHg. The aortic valve area index by the velocity time integral method was 1.62 cm2. The valve area index by peak velocity method was 1.73 cm2. HOSPITALIZATION COURSE: Mk Conroy is an 88-year-old male who is status post TAVR performed at [facility] on 11/02/18. He presented to the hospital with lightheadedness and apparently documented as an outpatient hypotension and bradycardia. Those were not confirmed at admission, but the patient was admitted to telemetry monitored bed and observed. Dr. Kunz saw the patient in consultation. The patient had at the point of the episode event monitor in place, but unfortunately this event monitor cannot be accessed remotely. The patient has to remove the monitor and send it over to the company in [place] to be interrogated. We are still waiting for the results. During the time of observation on telemetry monitored bed, the patient 's lisinopril dose was lowered from 40 mg to [address] Kunz. The patient also had his magnesium level optimized and received gentle intravenous hydration. On 11/04/18 in the morning, the patient had an asymptomatic 33-beat run of V-tach. At that point, Dr. Kunz discussed the case with Dr. Martinez, the patient's mult au matic operator, who recommended for the patient to be transferred to [facility] for further evaluation with possibility of EP study and possibility of pacemaker placement. At this point, we are in the process of working on transfer of this patient to [facility], but I already spoke with the hospitalist on-call, Dr. Lang, who will be the accepting provider for this patient in [facility] once it is confirmed. PHYSICAL EXAMINATION: At the time of transfer, blood pressure of 123/63, heart rate of 53 and irregular, respiratory rate 16, oxygen saturation 99% on room air , temperature 97.6. General: The patient is a very pleasant 88-year-old male who is in no acute distress, alert, awake, and oriented x3. HEENT: Head: Atraumatic, normocephalic. Eyes: Pupils are equal, reactive to light and accommodation. Oropharynx is clear. Mucosa moist. Neck: Supple. No JVD. No bruits bilaterally. Cardiovascular: Irregularly irregular rhythm. No murmur. Respiratory: Clear to auscultation bilaterally. Abdomen: Soft, nontender. Bowel sounds are present in all 4 quadrants. Extremities: There is no edema. Pulses are +2 bilaterally. No clubbing or cyanosis. On neuro evaluation, speech is clear. Cranial nerves II through XII are grossly intact. Motor strength is 5/5 bilaterally. Please note that this is a short summary of the patient's hospitalization. Please refer to further medical records for details. TIME SPENT: Approximately 45 minutes was spent on the patient's transfer. [id number]/[facility] #: [id number] MAYURI
== END 2018-11-04 15:55 | disposition short-term general hospital (02) ==
LOC: ED 13:36 → MEDTELE 18:24
PROVIDERS: ADMIT Internal Medicine; ATTEND Internal Medicine
DX: I47.2 Ventricular tachycardia (principal); R55 Syncope and collapse; R42 Dizziness and giddiness; Z95.4 Presence of other heart-valve replacement; I48.2 Chronic atrial fibrillation; I10 Essential (primary) hypertension; E78.5 Hyperlipidemia, unspecified; I34.0 Nonrheumatic mitral (valve) insufficiency; I25.10 Atherosclerotic heart disease of native coronary artery without angina pectoris; Z79.899 Other long term (current) drug therapy; I44.7 Left bundle-branch block, unspecified; Z87.891 Personal history of nicotine dependence; I95.9 Hypotension, unspecified
CPT/HCPCS: 36415; 71045; 71275; 80048; 80053; 83605; 83735; 84484; 85025; 85610; 85652; 85730; 86140; 86141; 93005; 93306; 96365; 99284; A9270-GY; G0378; J3475; Q9967

== ENCOUNTER 2019-02-25 11:44 | Inpatient (IN) | payer MEDICARE, OTHER ==
[2019-02-25] MEDS ORDERED: NS 0.9% 1000 ML** 1,000 ML IV.FLUID IV ONE (12:04)
--- NOTE | 2019-02-25 12:05 | ED ---
HPI Febrile Illness - HPI Summary HPI Summary: This patient is an 88 year old M presenting to ED with a chief complaint of fever since last night. Patient was hypotensive this morning (per daughter who is an corporate security officer), but he has not eaten or drank anything since yesterday afternoon. He is also coughing and having increased labor of breathing. Patient recently had his beta blockers changed by Dr. Magaña, lumber checker, from Metoprolol to Sotalol. Patient had a pacemaker placed earlier this month and a valve replacement over the summer of 2018. Patient is usually very active, however, he had to use a walker this morning. In the ED room, patients temperature is 103.3 F. The patient rates the pain 0/10 in severity. Symptoms aggravated by nothing. Symptoms alleviated by nothing. - History of Current Complaint Chief Complaint: EDFever Time Seen by Provider: 02/25/19 11:56 Hx Obtained From: Patient, Family/Recreation Officer - Daughter Onset/Duration: Started Hours Ago - Since last night, Still Present Timing: Constant, Lasting Hours - Since last night Temperature: 103.3 F Initial Severity: Mild Current Severity: Mild Pain Intensity: 0 Pain Scale Used: 0-10 Numeric Aggravating Factors: Nothing Alleviating Factors: Nothing Associated Signs and Symptoms: Cough, Other: - Increased labor of breathing - Allergy/Home Medications Allergies/Adverse Reactions: Allergies Allergy/AdvReac Type Severity Reaction Status Date / Time No Known Allergies Allergy Verified 02/25/19 11:51 Home Medications: Home Medications Atorvastatin* [Lipitor*] 40 mg PO DAILY 02/25/19 [History Confirmed 02/25/19] Furosemide 20 mg PO SEE INSTRUCTIONS 02/25/19 [History Confirmed 02/25/19] Sotalol TAB* [Betapace 80 MG TAB*] 40 mg PO DAILY 02/25/19 [History Confirmed ] PMH/Surg Hx/FS Hx/Imm Hx Endocrine/Hematology History: Denies: Hx Diabetes Cardiovascular History: Reports: Hx Atrial Fibrillation, Hx Coronary Artery Disease, Hx Hypercholesterolemia, Hx Hypertension, Hx Pacemaker/ICD, Hx Valvular Heart Disease - Aortic valve replacement, Mitral Valve regurgitation Denies: Hx Angina, Hx Myocardial Infarction Respiratory History: Denies: Hx Asthma, Hx Chronic Obstructive Pulmonary Disease (COPD) History: Denies: Hx Chronic Renal Failure, Hx Renal Disease Musculoskeletal History: Reports: Hx Arthritis - fingers and knees Sensory History: Reports: Hx Contacts or Glasses Denies: Hx Cataracts, Hx Hearing Aid Comment Only: Hx Deafness - Pt states he left hearing aids at home Opthamlomology History: Reports: Hx Contacts or Glasses Denies: Hx Cataracts Neurological History: Denies: Hx Dementia - Surgical History Surgery Procedure, Year, and Place: 2019 in [place]. Pacemaker Infectious Disease History: No Infectious Disease History: Denies: Traveled Outside the [place] in Last 30 Days - Family History Known Family History: Positive: Cardiac Disease - Social History Alcohol Use: Occasionally Alcohol Amount: 1 glass of wine Hx Substance Use: No Substance Use Type: Reports: None Hx Tobacco Use: Yes Smoking Status (MU): Former Smoker Type: Cigarettes Have You Smoked in the Last Year: No Review of Systems Positive: Fever - 103.3 F Cardiovascular: Other - Hypotensive per daughter Respiratory: Other - Increased labor of breathing Positive: Cough All Other Systems Reviewed And Are Negative: Yes Physical Exam - Summary Physical Exam Summary: Appearance: The patient is well-nourished in no acute distress and in no acute pain. Skin: The skin is warm and dry, and skin color reflects adequate perfusion. HEENT: The head is normocephalic and atraumatic. The pupils are equal and reactive. The conjunctivae are clear and without drainage. Dry mucous membranes. The external ears are intact. The ear canals are patent and without drainage. The tympanic membranes are intact. Neck: The neck is supple with full range of motion and non-tender. There are no carotid bruits. There is no neck vein distension. Respiratory: Chest is non-tender. Lungs are clear to auscultation and breath sounds are symmetrical and equal. Cardiovascular: Tachycardic. There is no murmur or rub auscultated. There is no peripheral edema and pulses are symmetrical and equal. Abdomen: The abdomen is soft and non-tender. There are normal bowel sounds heard in all four quadrants and there is no organomegaly palpated. Musculoskeletal: There is no back tenderness noted. Extremities are non-tender with full range of motion. There is good capillary refill. There is no peripheral edema or calf tenderness elicited. Neurological: Patient is alert and oriented to person, place and time. The patient has symmetrical motor strength in all four extremities. Cranial nerves are grossly intact. Deep tendon reflexes are symmetrical and equal in all four extremities. Psychiatric: The patient has an appropriate affect and does not exhibit any anxiety or depression. Triage Information Reviewed: Yes Vital Signs On Initial Exam: Initial Vitals Temp Pulse Resp BP Pulse Ox 101.5 F 106 18 144/75 99 02/25/19 11:45 02/25/19 11:45 02/25/19 11:45 02/25/19 11:45 02/25/19 11:45 Vital Signs Reviewed: Yes Procedures - Sedation Patient Received Moderate/Deep Sedation with Procedure: No Diagnostics - Vital Signs Vital Signs Temp Pulse Resp BP Pulse Ox 02/25/19 11:45 101.5 F 106 18 144/75 99 - Laboratory Result Diagrams: 02/25/19 12:24 02/25/19 12:16 Lab Statement: Any lab studies that have been ordered have been reviewed, and results considered in the medical decision making process. - Radiology CXR Radiology Interpretation Completed By: Radiologist Summary of Radiographic Findings: 1. Constellation of findings suggestive of mild mixed interstitial and alveolar pulmonary edema. Infiltrate can have a similar appearance. 2. Unchanged cardiomegaly status post aVR. 3. Left chest wall pacemaker in place. Dr. Coles has reviewed this radiology report. - EKG 1217 Cardiac Rate: Tachycardia - 113 BPM EKG Rhythm: Atrial Fibrillation Summary of EKG Findings: An EKG at 1217 revealed atrial fibrillation at 113 BPM , left axis deviation. Dr. Coles has reviewed and interpreted this EKG. Re-Evaluation - Re-Evaluation First Eval Re-Evaluation Time: 13:26 Comment: Discussed results with patient. Patient will be admitted to [facility] with dx of sepsis. Patient understands and agrees with this plan. Course/Dx - Course Course Of Treatment: Mr. Conroy was febrile and tachycardic when I saw him. He was given IV antibiotics and fluids while labs and chest x-ray were obtained. Chest x-ray was read as pulmonary edema or possible infiltrate and I think in this circumstance it is more likely to be infiltrate. I contacted the hospitalist service for admission. - Diagnoses Provider Diagnoses: Sepsis, Pneumonia - Provider Notifications Discussed Care Of Patient With: Renate Haro Time Discussed With Above Provider: 13:04 Instructed by Provider To: Admit As Inpatient - Discussed patient case with Dr. Haro, hospitalist, who accepted the patient for admission to [facility]. - Critical Care Time Critical Care Time: 30-74 min - 30 minutes Discharge ED - Sign-Out/Discharge Documenting (check all that apply): Patient Departure - Admit - Discharge Plan Condition: Fair Disposition: ADMITTED TO [facility] - Billing Disposition and Condition Condition: FAIR Disposition: Admitted to [facility] - Attestation Statements Document Initiated by Scribe: Yes Documenting Scribe: Ehsan Nolasco Provider For Whom Fredibe is Documenting (Include Credential): Abdulkadir Coles MD Scribe Attestation: IEhsan, scribed for Abdulkadir Coles MD on 02/25/19 at 1849. Scribe Documentation Reviewed: Yes Provider Attestation: The documentation as recorded by the Ehsan molina accurately reflects the service I personally performed and the decisions made by me, Abdulkadir Coles MD Status of Scribe Document: Viewed
[2019-02-25] MEDS ORDERED: Acetaminophen TAB* 325 MG PO ONE (12:06)
[2019-02-25] MEDS ORDERED: Levofloxacin 750 MG IVPREMIX(* 750 MG/150 ML BAG IVPB ONE (12:06)
[2019-02-25 12:47] LABS: ABS Lymphocytes 0.6 10^3/ul (1.0-4.8); ABS Monocytes 0.1 10^3/ul (0-0.8); ABS Neutrophils 14.2 10^3/ul (1.5-7.7); Hematocrit 44 % (42-52); Hemoglobin 14.7 g/dL (14.0-18.0); Lymphocyte % 4.2 %; Mean Corpuscular HGB Conc 34 g/dL (31-36); Mean Corpuscular Hemoglobin 32 pg (27-31); Mean Corpuscular Volume 95 fL (80-94); Nucleated Red Blood Cells % 0.1; Red Blood Count 4.57 10^6 /uL (4.18-5.48); Red Cell Distribution Width 14 % (10-15); White Blood Count 14.9 10^3/uL (3.5-10.8)
[2019-02-25 12:49] LABS: INR 1.52 (0.82-1.09)
[2019-02-25 12:55] LABS: Mean Platelet Volume 10.4 fL (7.4-10.4); Platelet Count 68 10^3/uL (150-450)
[2019-02-25 12:59] LABS: ALT 13 U/L (7-52); AST 16 U/L (13-39); Albumin/Globulin Ratio 1.3 (1-3); Alkaline Phosphatase 77 U/L (34-104); Anion Gap 11 mmol/L (2-11); BUN/Creatinine Ratio 18.3 (8-20); Blood Urea Nitrogen 22 mg/dL (6-24); C Reactive Protein 60.98 mg/L (<8.01); CO2 Carbon Dioxide 25 mmol/L (22-32); Calcium 9.5 mg/dL (8.6-10.3); Chloride 101 mmol/L (101-111); EGFR African American 69.3 (>60); EGFR Non-African American 57.3 (>60); Globulin 3.2 g/dL (2-4); Glucose 142 mg/dL (70-100); Potassium 4.5 mmol/L (3.5-5.0); Sodium 137 mmol/L (135-145); Total Protein 7.2 g/dL (6.4-8.9)
[2019-02-25 13:21] LABS: Troponin I 0.07 ng/mL (<0.03)
[2019-02-25] MEDS ORDERED: guaiFENesin 100 mg/5 ml LIQ unit dose cup PO PRN (13:49)
[2019-02-25] MEDS ORDERED: Acetaminophen TAB* 325 MG PO PRN (13:49)
--- NOTE | 2019-02-25 13:52 | PN ---
Sepsis Event Evaluation Date of Evaluation: 02/25/19 Time of Evaluation: 13:51 Current Stage of Sepsis: Severe Sepsis Vital Signs - Last 12 Hours: Vital Signs - 12 hr Temp Pulse Resp BP Pulse Ox 02/25/19 13:30 22 122/79 02/25/19 13:00 29 133/71 02/25/19 12:30 15 120/71 02/25/19 12:00 12 02/25/19 11:45 101.5 F 106 18 144/75 99 Lactic Acid: 02/25/19 12:24 Lactic Acid 2.5 H* - Cardiopulmonary Exam Capillary Refill: Immediate Respiratory: Symmetrical Chest Expansion and Respiratory Effort, - - BS+ bilaterally coarse, right base crackles Cardiovascular: RRR - Normal S1 and S2 - Peripheral Pulse Exam Radial Pulses: Bilateral Normal - Skin Exam Skin Exam: Normal Turgor - Samantha Coma Scale Best Eye Response: 4 - Spontaneous Best Motor Response: 6 - Obeys Commands Best Verbal Response: 5 - Oriented Coma Scale Total: 15 Assess/Plan/Problems-Billing Assessment: 88yo M with severe sepsis, likely secondary to pneumonia. Continue current management.
[2019-02-25] MEDS ORDERED: cefTRIAXone(*) 1 GM in NS 0.9% 50 ML* 50 ML IVPB SCH (14:00)
[2019-02-25] MEDS ORDERED: DOXYcycline IV* 100 MG in NS 0.9% 250 ML* 250 ML IVPB SCH ×2 (14:00→15:00)
[2019-02-25] MEDS ORDERED: Lactated Ringers 1000 ML Bag* 1,000 ML IV SCH (14:00)
[2019-02-25] MEDS ORDERED: Sotalol TAB* 80 MG PO SCH (15:00)
[2019-02-25] MEDS ORDERED: chlorproMAZINE TAB* 10 MG PO SCH (15:00)
--- NOTE | 2019-02-25 15:08 | ADMNOTE ---
Subjective Date of Service: 02/25/19 Interval History: HOSPITALIST HISTORY AND PHYSICAL CC: Shortness of breath HPI: Mr Atwood is an 88yo M with PMH of Atrial fibrillation, Aortic stenosis s/p TAVR 11/14, cardiomyopathy with EF 25-30% 01/14, s/p pacer, HTN, HLD, Mitral regurgitation, CAD 3VD, PVD who presented to ED with c/o dyspnea and cough. Most of the history is obtained from his grandaughter at bedside. She states that he is usually very active and was doing well Thanksgi day; he helped prepare dinner and was in good spirits. Yesterday he had some dry cough, malaise, and by the end of the day had an unmeasured fever and dyspnea. He did not drink or eat much during the day and she describes he was hypotensive. He denies N/V/D, urinary complaints. Family History: Findings - Mother had h/o cancer. There is also h/o DM, HTN Social History: Findings - Smoked from age 19 to 31; 3 glasses of wine/week, no drugs. 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 Review of Systems - Measurements Intake and Output: Intake and Output Last 24 Hours 02/23/19 02/24/19 02/25/19 02/26/19 06:59 06:59 06:59 06:59 Weight 152 lb - Review of Systems General Comments: 10 points ROS performed and all negative and positive findings are in the HPI. Objective Active Medications: Acetaminophen (Tylenol Tab*) 650 mg PO Q6H PRN PRN Reason: MILD PAIN or TEMP > 100.4 Apixaban (Eliquis*) 5 mg PO BID LASHAWN Atorvastatin Calcium (Lipitor*) 40 mg PO DAILY LASHA[facility] Ezetimibe (Zetia Tab*) 10 mg PO DAILY LAS[facility] Finasteride (Proscar Tab*) 5 mg PO DAILY [facility] Guaifenesin (Robitussin 100 Mg/5ml Liq) 5 ml PO Q6H PRN PRN Reason: COUGH Sodium Chloride (Ns 0.9% 1000 Ml) 1,000 mls @ 125 mls/hr IV PER RATE [facility] Ceftriaxone Sodium 1 gm/ (Sodium Chloride) 50 mls @ 200 mls/hr IVPB Q24H [facility] Last Admin: 02/25/19 14:12 Dose: 200 mls/hr Doxycycline Hyclate 100 mg/ (Sodium Chloride) 250 mls @ 250 mls/hr IVPB Q12HR@ 0300,1500 [facility] Sotalol HCl (Betapace Tab*) 40 mg PO DAILY [facility] Vital Signs - 8 hr 02/25/19 02/25/19 02/25/19 11:45 12:00 12:30 Temperature 101.5 F Pulse Rate 106 Respiratory 18 12 15 Rate Blood Pressure 144/75 120/71 (mmHg) O2 Sat by Pulse 99 Oximetry 02/25/19 02/25/19 02/25/19 13:00 13:30 14:00 Temperature Pulse Rate Respiratory 29 22 27 Rate Blood Pressure 133/71 122/79 121/87 (mmHg) O2 Sat by Pulse Oximetry 02/25/19 02/25/19 02/25/19 14:01 14:30 14:37 Temperature Pulse Rate Respiratory 34 25 Rate Blood Pressure 122/73 (mmHg) O2 Sat by Pulse 96 Oximetry Oxygen Devices in Use Now: None Appearance: Pleasant elderly gentleman lying in ED stretcher in NAD Eyes: No Scleral Icterus Ears/Nose/Mouth/Throat: Mucous Membranes Moist Neck: Trachea Midline Respiratory: Symmetrical Chest Expansion and Respiratory Effort, - - BS+ bilaterally with crackles on right base Cardiovascular: RRR - Normal S1 and S2 Abdominal: NL Sounds; No Tenderness; No Distention Extremities: No Edema Neurological: Alert and Oriented x 3, NL Muscle Strength and Tone Result Diagrams: 02/25/19 12:24 02/25/19 12:16 Additional Lab and Data: Laboratory Tests 02/25/19 02/25/19 02/25/19 12:16 12:16 12:24 WBC 14.9 H Hgb 14.7 Hct 44 Plt Count 68 L INR (Anticoag Therapy) 1.52 H Sodium 137 Potassium 4.5 Chloride 101 Carbon Dioxide 25 Anion Gap 11 BUN 22 Creatinine 1.20 H Glucose 142 H Lactic Acid Calcium 9.5 Total Bilirubin 2.40 H AST 16 ALT 13 Alkaline Phosphatase 77 Troponin I 0.07 H* C-Reactive Protein 60.98 H 02/25/19 12:24 WBC Hgb Hct Plt Count INR (Anticoag Therapy) Sodium Potassium Chloride Carbon Dioxide Anion Gap BUN Creatinine Glucose Lactic Acid 2.5 H* Calcium Total Bilirubin AST ALT Alkaline Phosphatase Troponin I C-Reactive Protein Diagnostic Imaging: Patient Name: HATTIE ATWOOD Medical Record#: [id number] Ordering Physician: Abdulkadir Coles MD Acct.#: [id number] : 1930 Age: 88 Sex: M Location: EMERGENCY DEPARTMENT Exam Date: 02/25/19 1204 ADM Status: REG ER Order Information: CHEST AP OR PORT Accession Number: [id number] CPT: 28496 INDICATION: Sepsis COMPARISON: November 02, 2018 chest radiograph TECHNIQUE: A portable view of the chest was obtained. FINDINGS: There is mild perihilar predominant airspace opacification. No large pleural effusion is identified. The enlarged cardiac silhouette, with a double density sign about the right heart border, is unchanged status post aVR. The vascular markings are prominent. Armida B lines are present. A left chest wall pacemakers in place. The upper abdominal contents are grossly unremarkable. The osseous structures are grossly unremarkable aside from degenerative changes. IMPRESSION: 1. Constellation of findings suggestive of mild mixed interstitial and alveolar pulmonary edema. Infiltrate can have a similar appearance. 2. Unchanged cardiomegaly status post aVR. 3. Left chest wall pacemaker in place. <Electronically signed by Raghu Og MD in OV> 02/25/19 1247 Dictated By: Raghu Og MD Dictated Date/Time: 02/25/19 1240 Transcribed Date/Time: 02/25/19 124 EKG Data: Afib/V paced rhythm at 113 bpm, with no acute ischemic changes. 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 - Patient Problems (1) Severe sepsis Comment: - Presentation compatible with sepsis with fever, tachycardia, leukocytosis, and lactic acidosis. - Source appears to be community acquired pneumonia. (2) Pneumonia Comment: - CxR doesn't show a discrete infiltrate, but patient seems to be a little on the dry side, so suspect an infiltrate my flourish after IV hydration. He does have crackles on his right base. - Blood cultures were sent, check sputum culture, Legionella and pneumo Ag, as well as Influenza. - Start Ceftriaxone and Doxycyline. (3) Lactic acidosis Comment: - Secondary to sepsis - continue IVF and trend LA q4h. (4) Troponin level elevated Comment: - Suspect demand ischemia in the settinf of severe sepsis, but patient does have a history of CAD - will trend troponin until peak. - Monitor on Telemetry. (5) Thrombocytopenia Comment: - Chronic - counts are stable - continue to monitor. (6) Atrial fibrillation Comment: - Rate is uncontrolled in the setting of severe sepsis and patient has not taken his usual Sotalol dose yet today. - Will resume Sotalol and monitor. - Continue Eliquis. (7) HTN (hypertension) Comment: - BP is normal at this time - in the setting of severe sepsis will hold Lisinopril and Furosemide. (8) Hyperbilirubinemia Comment: - Chronic. - No significant signs of liver congestion at this time. 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 (9) DVT prophylaxis Comment: - Patient has score of 3 on the DVT prophylaxis risk guide. - Continue Eliquis. (10) Full code status Comment: - Code status d/w patient and he wishes to be Full code. Status and Disposition: Approximately 50 minutes where spent with patient and family interview, medical records review, physical examination to complete this admission; more than half of this time was spent face to face with patient and coordination of care.
[2019-02-25] MEDS: NS 0.9% 1000 ML** 1,000 ML IV SCH ×3 (15:30→20:43)
[2019-02-25] MEDS: Finasteride TAB* 5 MG PO SCH (15:44)
[2019-02-25] MEDS: Atorvastatin* 40 MG TAB PO SCH (15:45)
[2019-02-25] MEDS ORDERED: NS 0.9% 1000 ML** 1,000 ML IV ONE ×2 (16:00→19:48)
[2019-02-25 16:35] LABS: Troponin I 0.09 ng/mL (<0.03)
[2019-02-25] MEDS: Ezetimibe TAB* 10 MG PO SCH (16:38)
[2019-02-25] MEDS: Sotalol TAB* 80 MG PO SCH ×2 (16:45→20:53)
[2019-02-25 19:39] LABS: Troponin I 0.17 ng/mL (<0.03)
[2019-02-25 20:45] LABS: Influenza A Molecular NEGATIVE (Negative); Influenza B Molecular NEGATIVE (Negative)
[2019-02-25] MEDS: Apixaban* 5 MG TAB PO SCH (20:55)
[2019-02-25 20:57] LABS: Urine Appearance Clear; Urine Bilirubin Negative (Negative); Urine Blood Negative (Negative); Urine Color Yellow; Urine Glucose Negative (Negative); Urine Ketones Negative (Negative); Urine Nitrite Negative (Negative); Urine Protein 1+(30 mg/dL) (Negative); Urine Specific Gravity 1.018 (1.010-1.030); Urine Urobilinogen Negative (Negative)
[2019-02-25 21:05] LABS: Urine Bacteria Absent (Absent); Urine Red Blood Cell 2+(6-10/hpf) (Absent); Urine White Blood Cell Trace(0-5/hpf) (Absent)
[2019-02-25] MEDS ORDERED: ceFAZolin VIAL(*) 2 GM in NS 0.9% 100 ML* 100 ML IVPB SCH (23:30)
[2019-02-26] MEDS: NS 0.9% 1000 ML** 1,000 ML IV SCH (05:49)
[2019-02-26] MEDS: Oxacillin(*) 2 GM in NS 0.9% 100 ML* 100 ML IVPB SCH ×5 (05:50→21:03)
[2019-02-26 08:04] LABS: ABS Monocytes 0.4 10^3/ul (0-0.8); ABS Neutrophils 12.9 10^3/ul (1.5-7.7); Eosinophil % 0.1 %; Hematocrit 39 % (42-52); Lymphocyte % 7.2 %; Mean Corpuscular HGB Conc 34 g/dL (31-36); Mean Corpuscular Hemoglobin 32 pg (27-31); Mean Corpuscular Volume 96 fL (80-94); Platelet Count 48 10^3/uL (150-450); Red Blood Count 4.03 10^6 /uL (4.18-5.48); Red Cell Distribution Width 14 % (10-15); White Blood Count 14.4 10^3/uL (3.5-10.8)
[2019-02-26 08:18] LABS: ALT 13 U/L (7-52); AST 21 U/L (13-39); Albumin 3.1 g/dL (3.2-5.2); Albumin/Globulin Ratio 1.3 (1-3); Alkaline Phosphatase 58 U/L (34-104); Anion Gap 6 mmol/L (2-11); BUN/Creatinine Ratio 22.7 (8-20); Blood Urea Nitrogen 22 mg/dL (6-24); CO2 Carbon Dioxide 25 mmol/L (22-32); Calcium 8.4 mg/dL (8.6-10.3); Chloride 109 mmol/L (101-111); EGFR African American 88.6 (>60); EGFR Non-African American 73.2 (>60); Globulin 2.3 g/dL (2-4); Glucose 98 mg/dL (70-100); Indirect Bilirubin 1.2 mg/dL (0.3-1.0); Sodium 140 mmol/L (135-145); Total Protein 5.4 g/dL (6.4-8.9)
[2019-02-26] MEDS: Ezetimibe TAB* 10 MG PO SCH (08:28)
[2019-02-26] MEDS: Atorvastatin* 40 MG TAB PO SCH (08:28)
[2019-02-26] MEDS: Finasteride TAB* 5 MG PO SCH (08:28)
[2019-02-26] MEDS: Apixaban* 5 MG TAB PO SCH (08:28)
[2019-02-26] MEDS: Sotalol TAB* 80 MG PO SCH ×2 (08:28→21:08)
[2019-02-26 08:33] LABS: Troponin I 0.16 ng/mL (<0.03)
--- NOTE | 2019-02-26 10:39 | ECHO ---
*[facility]* [place] [address] Fax #: [phone] Transthoracic Echocardiogram Patient: Mk Conroy : 1930 Study Date: 02/26/2019 Age: 88 Gender: M HR: 89 bpm Height: 67 in /170.2 cm BSA: 1.88 m^2 Weight: 167.7 lb /76.2 kg BMI: 26.3 kg/m^2 *Youth Coordinator: J[facility] *Referring Physician: * Elizabeth Dubon *Reading Physician: * Ramon Yang MD Indications: Bacteremia. History: Atrial fibrillation. Coronary artery disease. Mitral valve disease. Aortic stenosis. Risk factors: Hypertension. Dyslipidemia. Labs, prior tests, procedures, and surgery: Transvascular aortic valve replacement. Permanent pacemaker system implantation. Conclusions Summary: - Left ventricle: The cavity size is mildly to moderately dilated. Wall thickness is mildly increased. Systolic function is severely reduced. The estimated ejection fraction is 25-30%. Severe diffuse hypokinesis. - Right ventricle: The cavity size is mildly dilated. Systolic function is normal. - Left atrium: The atrium is severely dilated. - Right atrium: The atrium is severely dilated. - Mitral valve: There is moderate to severe regurgitation, more consistent with moderate. - Aortic valve: Normally functioning bioprosthetic aortic valve replacement. No significant stenosis and no significant regurgitation. - Tricuspid valve: There is moderate-severe regurgitation. - Pulmonary arteries: Systolic pressure is moderately to severely increased. The peak pressure during systole by Doppler is 51.0 mm Hg. - Aortic arch: The aortic arch is mildly dilated. - Pericardium, extracardiac: There is a left pleural effusion which appears moderate sized. - No intra-cardiac vegetation noted on this transthoracic echocardiogram. - Since the prior transthoracic echocardiogram completed 01/17/19, there is no significant change. If clinical concern remains for intra-cardiac vegetation presence, consider transesophageal echocardiogram for improved sensitivity for intra-cardiac vegetation detection. Study data: Transthoracic echocardiogram. Procedure: Transthoracic echocardiography was performed. Image quality was good. Complete 2D, spectral Doppler, and color flow Doppler. Location: Bedside. Patient status: Inpatient. Patient room number: 443 02. Rhythm: Paced rhythm. Findings Left ventricle: The cavity size is mildly to moderately dilated. Wall thickness is mildly increased. Systolic function is severely reduced. The estimated ejection fraction is 25-30%. Severe diffuse hypokinesis. Left ventricular diastolic function parameters are indeterminate. Right ventricle: The cavity size is mildly dilated. Systolic function is normal. Left atrium: The atrium is severely dilated. Right atrium: The atrium is severely dilated. Pacer wire noted in right atrium. Mitral valve: The leaflets are mildly thickened. There is moderate to severe regurgitation, more consistent with moderate. Aortic valve: Normally functioning bioprosthetic aortic valve replacement. No significant stenosis and no significant regurgitation. The leaflets are normal thickness. Tricuspid valve: The leaflets are normal thickness. There is moderate-severe regurgitation. Pulmonic valve: Not well visualized. There is no evidence of stenosis. There is trace to mild regurgitation. Aorta: Aortic arch: The aortic arch is mildly dilated. The aortic root appears normal. Pericardium: A trace pericardial effusion is identified. There is a left pleural effusion which does appear moderate sized. Pulmonary arteries: The main pulmonary artery is normal-sized. Systolic pressure is moderately to severely increased. Systemic veins: Inferior vena cava: The vessel is dilated. There is (< 50%) respiratory change in the IVC dimension. Measurements Left ventricle Value Ref Aortic valve continued Value Ref RENEA, LAX (H) 6.1 cm 4.2 - 5.8 VTI, S 25.0 cm ----- ESD, LAX (H) 5.1 cm 2.5 - 4.0 Mean grad, S 5.0 mm Hg ----- FS, LAX (L) 16 % 25 - 43 Peak grad, S 9.0 mm Hg ----- PW, ED, LAX (H) 1.1 cm 0.6 - 1.0 SHAWN, VTI 2.50 cm^2 ----- EF (L) 33 % 52 - 72 SHAWN, Vmax 2.50 cm^2 ----- E', lat pollo, TDI 11.1 cm/sec >=10.0 E/e', lat pollo, 9 Mitral valve Value Ref TDI Peak E 1 m/sec ----- E', med pollo, TDI 8.2 cm/sec >=7.0 Peak A 0.41 m/sec - ---- E/e', med pollo, 12 Decel time 124 ms ---- - TDI PHT 54 ms ----- E', avg, TDI 9.7 cm/sec Mean grad, D 2.0 mm Hg ---- - E/e', avg, TDI 10 <=14 Peak grad, D 7.0 mm Hg - ---- Peak E/A ratio 2.5 ----- LVOT Value Ref MVA, PHT 4.1 cm^2 ----- Diam, S 2.40 cm ERO, PISA 0.17 cm^2 ----- Area 4.5 cm^2 MR vol, PISA 26 ml ----- Peak sherita, S 0.82 m/sec MR fraction, PISA 30 % ----- Mean grad, S 1 mm Hg SV 62 ml Pulmonic valve Value Ref Peak v, S 0.54 m/sec ----- Ventricular septum Value Ref Peak grad, S 1.0 mm Hg ----- IVS, ED (H) 1.2 cm 0.6 - 1.0 Tricuspid valve Value Ref Right ventricle Value Ref TR peak v (H) 3 m/sec <=2.8 RENEA, LAX 4.2 cm Peak RV-RA grad, S 36 mm Hg ----- RENEA minor ax, A4C (H) 3.7 cm 1.9 - 3.5 mid Aortic root Value Ref Pressure, S 51 mm Hg Root diam 3.0 cm <4.1 Root max diam, ED 3.0 cm <4.1 Left atrium Value Ref AP dim, ES (H) 6.00 cm 3.00 - Aortic arch Value Ref 4.00 Arch diam 3.6 cm ----- ML dim, A4C 6.3 cm SI dim, A4C 8.5 cm Decending aorta Value Ref Vol/bsa, ES, 1-p (H) 91 ml/m^2 12 - 37 Blake peak sherita 0.28 m/sec ----- A4C Vol/bsa, ES, A/L (H) 99 ml/m^2 16 - 34 Pulmonary artery Value Ref Pressure, S 51.0 mm Hg ----- Right atrium Value Ref SI dim, ES (H) 8.2 cm 3.4 - 5.3 Inferior vena cava Value Ref ML dim, ES, A4C (H) 5.6 cm 2.6 - 4.4 Diam 3.9 cm ----- Estimated RAP 15 mm Hg Aortic valve Value Ref Pollo diam, ED 2.1 cm Peak v, S 1.5 m/sec Legend: (L) and (H) izabella values outside specified reference range. Prepared and electronically signed by Ramon Yang MD 02/26/2019 10:37
--- NOTE | 2019-02-26 13:18 | PN ---
Subjective Date of Service: 02/26/19 Interval History: Patient's daughter was at bedside who helped provide some vital information regarding his treatment in different facilities for the last few months. TAVR done in Oct, 2018 in [place] After TAVR, significant improvement initially but deteriorated afterwards, syncope episode, went to [place] again, dual chamber pacemaker placed TVD CAD, no stent before, there was a discussion regarding CABG together with TAVR in the past but decided to go TAVR first. Dental clearance done before TAVR, bad teeth were pulled out. Had problems of urinary retention seeing urologist , but first time was put on romo. Following up with Dr. Jayda Magaña closely, last visit was last week. Patient stated he was able to walk outdoor with her daughter after TAVR for a while, but deteriorated afterwards. He was well until yesterday he developed fever, T 103. He felt uncomfortable with romo insertion today but otherwise no complains. Objective Active Medications: Acetaminophen (Tylenol Tab*) 650 mg PO Q6H PRN PRN Reason: MILD PAIN or TEMP > 100.4 Last Admin: 02/25/19 20:55 Dose: 650 mg Atorvastatin Calcium (Lipitor*) 40 mg PO DAILY [facility] Last Admin: 02/26/19 08:28 Dose: 40 mg Ezetimibe (Zetia Tab*) 10 mg PO DAILY [facility] Last Admin: 02/26/19 08:28 Dose: 10 mg Finasteride (Proscar Tab*) 5 mg PO DAILY [facility] Last Admin: 02/26/19 08:28 Dose: 5 mg Guaifenesin (Robitussin 100 Mg/5ml Liq) 5 ml PO Q6H PRN PRN Reason: COUGH Sodium Chloride (Ns 0.9% 1000 Ml) 1,000 mls @ 125 mls/hr IV PER RATE [facility] Last Admin: 02/26/19 05:49 Dose: 125 mls/hr Oxacillin Sodium 2 gm/ Sodium (Chloride) 100 mls @ 200 mls/hr IVPB Q4H [facility] Last Admin: 02/26/19 10:49 Dose: 200 mls/hr Sotalol HCl (Betapace Tab*) 40 mg PO BID [facility] Last Admin: 02/26/19 08:28 Dose: 40 mg Vital Signs - 8 hr 02/26/19 02/26/19 06:51 08:00 Temperature 98.2 F Pulse Rate 75 Respiratory 19 17 Rate Blood Pressure 122/68 (mmHg) O2 Sat by Pulse 99 99 Oximetry Oxygen Devices in Use Now: None Exam: Appearance: Pleasant elderly gentleman lying on bed NAD Eyes: No Scleral Icterus Ears/Nose/Mouth/Throat: Mucous Membranes Moist Neck: Trachea Midline Respiratory: Symmetrical Chest Expansion and Respiratory Effort, decreased left side air entry. Cardiovascular: RRR - Normal S1 and S2 Abdominal: NL Sounds; No Tenderness; No Distention Extremities: No Edema Skin: no janeway spot, no olser nodules Neurological: Alert and Oriented x 3, NL Muscle Strength and Tone Result Diagrams: 02/26/19 07:31 02/26/19 07:31 Additional Lab and Data: Laboratory Tests 02/25/19 02/25/19 02/25/19 12:16 12:16 12:24 WBC 14.9 H Hgb 14.7 Hct 44 Plt Count 68 L INR (Anticoag Therapy) 1.52 H Sodium 137 Potassium 4.5 Chloride 101 Carbon Dioxide 25 Anion Gap 11 BUN 22 Creatinine 1.20 H Glucose 142 H Lactic Acid Calcium 9.5 Total Bilirubin 2.40 H AST 16 ALT 13 Alkaline Phosphatase 77 Troponin I 0.07 H* C-Reactive Protein 60.98 H 02/25/19 12:24 WBC Hgb Hct Plt Count INR (Anticoag Therapy) Sodium Potassium Chloride Carbon Dioxide Anion Gap BUN Creatinine Glucose Lactic Acid 2.5 H* Calcium Total Bilirubin AST ALT Alkaline Phosphatase Troponin I C-Reactive Protein Diagnostic Imaging: Patient Name: HATTIE ATWOOD Medical Record#: [id number] Ordering Physician: Abdulkadir Coles MD Acct.#: [id number] : 1930 Age: 88 Sex: M Location: EMERGENCY DEPARTMENT Exam Date: 02/25/19 1204 ADM Status: REG ER Order Information: CHEST AP OR PORT Accession Number: [id number] CPT: 48910 INDICATION: Sepsis COMPARISON: November 02, 2018 chest radiograph TECHNIQUE: A portable view of the chest was obtained. FINDINGS: There is mild perihilar predominant airspace opacification. No large pleural effusion is identified. The enlarged cardiac silhouette, with a double density sign about the right heart border, is unchanged status post aVR. The vascular markings are prominent. Armida B lines are present. A left chest wall pacemakers in place. The upper abdominal contents are grossly unremarkable. The osseous structures are grossly unremarkable aside from degenerative changes. IMPRESSION: 1. Constellation of findings suggestive of mild mixed interstitial and alveolar pulmonary edema. Infiltrate can have a similar appearance. 2. Unchanged cardiomegaly status post aVR. 3. Left chest wall pacemaker in place. <Electronically signed by Raghu Og MD in OV> 02/25/19 1247 Dictated By: Raghu Og MD Dictated Date/Time: 02/25/19 1240 Transcribed Date/Time: 02/25/19 124 EKG Data: Afib/V paced rhythm at 113 bpm, with no acute ischemic changes. 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 - Patient Problems (1) MSSA bacteremia Current Visit: Yes Status: Acute Code(s): R78.81 - BACTEREMIA SNOMED Code( s): 506439211 Comment: - concerning for infective endocarditis with recent valve replacement and pacer insertion - other sources possible include pneumonia, urine - TTE today no vegetation shown but noted left moderate pleural effusion - cardiology consult today, consider IRASEMA tomorrow, will npo tonight, hold off Eliquis tonight and reserve after IRASEMA tomorrow - iv oxacillin Q4h for now - ideally should start triple therapy including iv gentamicin and rifampicin, however in view of his thrombocytopenia and hyperbilirubinemia, we hold off for now. Will get ID consult tomorrow. - CXR PA view to better identify chest infection and pleural effusion size today (2) Hyperbilirubinemia Current Visit: Yes Status: Acute Code(s): E80.6 - OTHER DISORDERS OF BILIRUBIN METABOLISM SNOMED Code(s): 08104078 Comment: - Acute on Chronic. 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 (5) Retention of urine Current Visit: Yes Status: Acute Code(s): R33.9 - RETENTION OF URINE, UNSPECIFIED SNOMED Code(s): 147495093 Comment: - urinalysis benign - likely due to underlying BPH - trial off romo later dates once urine cs back neg (6) Lactic acidosis Current Visit: Yes Status: Acute Code(s): E87.2 - ACIDOSIS SNOMED Code(s) : 92001453 Comment: - Secondary to sepsis - resolved after ivf (7) DVT prophylaxis Current Visit: Yes Status: Acute Code(s): Z29.9 - ENCOUNTER FOR PROPHYLACTIC MEASURES, UNSPECIFIED SNOMED Code(s): 868901626 Comment: - Patient has score of 3 on the DVT prophylaxis risk guide. - Continue Eliquis. (8) Troponin level elevated Current Visit: Yes Status: Acute Code(s): R79.89 - OTHER SPECIFIED ABNORMAL FINDINGS OF BLOOD CHEMISTRY SNOMED Code(s): 741137777 Comment: - Suspect demand ischemia in the setting of severe sepsis, but patient does have a history of CAD - trop peaked - Monitor on Telemetry. (9) Thrombocytopenia Current Visit: Yes Status: Acute Code(s): D69.6 - THROMBOCYTOPENIA, UNSPECIFIED SNOMED Code(s): 792308972 Comment: - Chronic - counts are stable - continue to monitor. (10) Full code status Current Visit: Yes Status: Acute Code(s): Z78.9 - OTHER SPECIFIED HEALTH STATUS SNOMED Code(s): 148552434 Comment: - Code status d/w patient and he wishes to be Full code. Status and Disposition: Inpatient Medicine. Attestation Documenting Resident: Elizabeth Dubon Supervising Physician: Mike Fraser Attending/Supervising Physician Comment: Sepsis 2/2 MSSA bacteremia with need to rule out prosthetic valve or PPM lead endocarditis. TTE w/o vegetations, EF 25-30% unchanged but mitral and tricuspid regurgitations worsened compared to 01/17 study. Moderate to Severe MVR with some consideration for need for Mitral Clip. Effective forward flow is actually overestimated. Cardiology consulted for IRASEMA. Blood Cultures repeated. On Oxacillin q4. May need gentamycin x 2 weeks and [rifampin, oxacillin x 6 weeks] (for but will wait for sensitivities to confirm sensitivity to first) and get ID consult tomorrow. CXR PA/LAT with persistent left pleural effusion (this has been present (with reduced/improved after TAVR) since at least August and was suspected to be secondary to CHF) Will get chest US tomorrow to evaluate for any loculation that may point to a parapneumonic effusion that would need thoracentesis. Attestation: This service has been performed in part by a resident under the direction of a teaching physician.I, Mike Fraser, performed the service, or was physically present during the critical, or franco portions of the service, furnished by the resident. I participated in the management of the patient.
[2019-02-27] MEDS: Oxacillin(*) 2 GM in NS 0.9% 100 ML* 100 ML IVPB SCH ×6 (02:07→21:18)
[2019-02-27 06:33] LABS: ABS Eosinophils 0.1 10^3/ul (0-0.6); ABS Lymphocytes 1.3 10^3/ul (1.0-4.8); ABS Monocytes 0.6 10^3/ul (0-0.8); ABS Neutrophils 7.2 10^3/ul (1.5-7.7); Eosinophil % 0.7 %; Hematocrit 40 % (42-52); Hemoglobin 13.3 g/dL (14.0-18.0); Lymphocyte % 14.7 %; Mean Corpuscular HGB Conc 34 g/dL (31-36); Mean Corpuscular Hemoglobin 32 pg (27-31); Mean Corpuscular Volume 95 fL (80-94); Mean Platelet Volume 10.5 fL (7.4-10.4); Nucleated Red Blood Cells % 0.1; Platelet Count 41 10^3/uL (150-450); Red Blood Count 4.16 10^6 /uL (4.18-5.48); Red Cell Distribution Width 14 % (10-15); White Blood Count 9.2 10^3/uL (3.5-10.8)
[2019-02-27 06:40] LABS: BUN/Creatinine Ratio 20.6 (8-20); C Reactive Protein 98.26 mg/L (<8.01); Calcium 8.7 mg/dL (8.6-10.3); EGFR African American 79.1 (>60); EGFR Non-African American 65.4 (>60); Potassium 3.9 mmol/L (3.5-5.0)
[2019-02-27] MEDS: Ezetimibe TAB* 10 MG PO SCH (08:43)
[2019-02-27] MEDS: Finasteride TAB* 5 MG PO SCH (08:43)
[2019-02-27] MEDS: Atorvastatin* 40 MG TAB PO SCH (08:43)
[2019-02-27] MEDS: Sotalol TAB* 80 MG PO SCH ×2 (08:43→21:17)
[2019-02-27] MEDS ORDERED: fentaNYL* 50 MCG/ML 2 ML VIAL (100 MCG VIAL) ONE (11:05)
[2019-02-27] MEDS ORDERED: Naloxone* 0.4 MG/ML 1 ML VIAL ONE (11:05)
[2019-02-27] MEDS ORDERED: Flumazenil* 0.1 MG/ML 5 ML MDV ONE (11:05)
[2019-02-27] MEDS ORDERED: Midazolam* 1 MG/ML 5 ML VIAL (5 MG) ONE (11:05)
[2019-02-27] MEDS ORDERED: Lidocaine 2% VISCOUS* 15 ML UDC ONE (11:05)
--- NOTE | 2019-02-27 13:09 | CONS ---
CONSULTATION REPORT: DATE OF CONSULT: 02/27/19 ATTENDING PHYSICIAN: Dr. Werner Schmidt, cardiology.* (DICTATED BY EDER VAUGHAN NP) PRIMARY PHYSICIAN: Dr. Adali Davis. PRIMARY GLUING MACHINE OFFBEARER: Dr. Jayda Magaña. CHIEF COMPLAINT: Fever, intermittent lightheadedness. HISTORY OF PRESENT ILLNESS: This is a pleasant 88-year-old male patient who follows with Dr. Jayda Magaña in our practice due to a notable history of systolic heart failure, PVCs, eikkhnvl-ix-plplnz aortic stenosis; status post TAVR on 10/27/18, triple-vessel coronary artery disease; treated medically, and mid left bundle-branch block, A flutter, hypertension, hyperlipidemia, SSS with DC PPM in situ.. The patient states that he has been doing well. He has been seen in our practice on a weekly basis ever since he underwent TAVR on 10/27/18. His most recent visit was 02/21/19 with Karli Mccrary NP, of our practice. At that time, there was a concern of possible diaphragmatic stimulation from the change in the vector after the AV optimization study on 02/21/19. He was manifesting this as complaints of back pain. He states that about 3 weeks ago, he was asked to start Lasix 3 times a week. He adds that he has been noticing dyspnea on exertion, but denies orthopnea, chest pain, syncope, or palpitations. Apparently, he had been doing quite well; however, Wednesday evening he started to develop intermittent lightheadedness with a temperature of 100.3. Thus, he opted for evaluation at [facility]. He denies syncope, denies falling, and denies chest pain, orthopnea, weight gain, or edema. He denies diarrhea, nausea, or vomiting. While being evaluated in the emergency department, basic blood work was obtained. White count was 14.9, platelets were 68,000, absolute neutrophils were 14.2. His lactic acid was 2.3. Troponin elevated at 0.17, BNP greater than 1300. C-reactive protein 98.26. His urine culture was negative for Legionella. He had positive Staphylococcus aureus growth in his final blood culture. There was no evidence of MRSA in his final blood culture. Chest x-ray revealed small left greater than right pleural effusion. We were asked to see him in consultation for consideration of transesophageal echocardiogram. The patient recently underwent a biventricular pacemaker implant at [facility] in October 2018. He denies any further surgical intervention since that time. It appears that a Dexter catheter was placed while in the emergency department. His daughter is at bedside and helped with history of present illness. Last echocardiogram was 01/17/19. At that time, LVEF was 25% to 30%, PA pressure was 59. Last ischemic evaluation via left heart catheterization pre TAVR 09/21/18, per report, left main patent. LAD proximal vessels heavily calcified, 50% stenosis. Mid LAD 50% stenosis. First diag proximal vessel lesion 40% stenosis. Ramus intermedius 50% stenosis. Left circumflex middle portion of the vessel is moderately calcified. Distal vessel lesion 80% stenosis. Lateral first obtuse marginal lesion 100% stenosis. Right coronary artery proximal vessel is moderately calcified. Right PDA mid vessel lesion 90% stenosis. First right posterolateral lesion 65% stenosis. PAST MEDICAL HISTORY: 1. Triple-vessel coronary artery disease. 2. Systolic heart failure. 3. Htjqsmes-gs-xenkfz mitral regurgitation. 4. Intermittent left bundle-branch block. 5. 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 6. Trqfzavm-vr-gioynu aortic stenosis. 7. AFib/flutter. 8. Hypertension. 9. Hyperlipidemia. 10. Sick sinus syndrome. PAST SURGICAL HISTORY: Includes: 1. TAVR 10/27/18 with 29 mm JOCELINE 3 valve. 2. Dual chamber biventricular pacemaker. 3. Hernia repair. 4. Left heart catheterization 09/21/18. HOME MEDICATIONS: Include: 1. Eliquis 5 mg p.o. b.i.d. 2. Sotalol 40 mg a day. 3. Lasix 20 mg 3 times a week. 4. Lisinopril 2.5 mg a day. 5. Zetia 10 mg a day. 6. Lipitor 40 mg p.o. daily. 7. Finasteride 5 mg a day. ALLERGIES: No known drug allergies. FAMILY HISTORY: Noncontributory. SOCIAL HISTORY: The patient is . 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 Quit tobacco use 40 years ago. Denies alcohol use. Ambulates independently. Participates with physical therapy twice a week. REVIEW OF SYSTEMS: All systems have been reviewed and otherwise negative, except as mentioned in the HPI. PHYSICAL EXAMINATION: The patient is lying upright in bed with his daughter at bedside, appears in no apparent distress, and is cooperative with examination. He is alert and oriented x3. HEENT: Head is atraumatic, normocephalic. Oral mucosa is moist. Tongue is midline. Neck: Supple. Trachea midline. No JVD. No carotid bruits. Cardiac: Normal S1, S2. Regular rate and rhythm. There is a grade 3/5 mitral murmur auscultated in the left axilla. No gallop or rub. Lungs: Auscultated posteriorly, diminished throughout. Slight inspiratory crackles noted in left base. Respirations nonlabored. /GI: Abdomen is soft , nontender, nondistended. Normoactive bowel sounds x4. Extremities: No pedal edema, no clubbing, no cyanosis. Peripheral Vascular: 2+ brachial pulse palpated bilaterally and symmetrically. 2+ dorsalis pedis pulse palpated bilaterally and symmetrically. Skin: Intact. No jaundice, rashes, or ecchymosis appreciated. DIAGNOSTIC STUDIES/LAB DATA: Blood work obtained 01/28/19: Sodium 140, potassium 3.9, chloride 110, carbon dioxide 24, BUN 22, creatinine 1.07, glucose 98. Troponin peaked at 0.17 on 02/25/19. Albumin 3.1, total bilirubin 1.6. INR 1.52. White count 9.2, hemoglobin 13.3, hematocrit 40, platelets 41. Microbiology: Urine Legionella antigen was negative. Streptococcus pneumoniae antigen negative. Venous blood culture grew Staph aureus, negative for MRSA. ECG obtained on 02/26/19: V-paced rate 71 with PVCs, possible underlying A flutter. Chest x-ray 02/27/19, per radiology report: Ydhwl-de-nhhqbtit sized left pleural effusion. Echocardiogram on 02/26/19: Per report, LVEF 25% to 30%. Severe diffuse hypokinesis, severe biatrial dilatation, oqvrblul-cg-tftnbt mitral regurgitation , normal functioning bioprosthetic aortic valve with no stenosis or regurgitation, zmesxqio-nq-wnsxaa tricuspid regurgitation, slyhpncf-wg-ktdxbj pulmonary hypertension, moderate left pleural effusion. No intracardiac vegetation noted on echo. ASSESSMENT AND PLAN: 1. Sepsis. The patient presented with fever of 103, intermittent lightheadedness with Staph aureus noted on blood cultured. Methicillin- resistant Staphylococcus aureus was not identified. Etiology not cleared to have transesophageal echocardiogram today with Dr. Werner Schmidt to rule out lead vegetation/mitral valve vegetation. Infectious disease consult is pending. The patient is on IV oxacillin at this current time. He is hemodynamically stable and is no longer febrile. We will follow post IRASEMA. 2. History of thrombocytopenia. The patient's baseline platelets based on review of prior labs appear to be 70,000 to 80,000. Platelets today are 41, 000. Eliquis therapy is on hold. Of note, he has history of elevated total bilirubin and unclear etiology of thrombocytopenia. Defer to primary team. Denies history of alcohol use or hepatitis C. 3. History of triple vessel coronary artery disease. The patient is treated medically. He denies chest pain. Troponin peaked at 0.17. There was no focal wall motion abnormality noted on 02/26/19 echocardiogram. He is not on aspirin at this time due to thrombocytopenia. Would recommend continuing atorvastatin therapy. 4. History of qjyarrus-pp-pfptbp mitral regurgitation, follows Dr. Martinez. He has an outpatient appointment next week for evaluation of possible mitral valve clipping. He appears compensated on physical examination to have IRASEMA today. 5. History of sick sinus syndrome, status post biventricular pacemaker implantation in October 2018. Last device check was 02/21/19. At that time, he was 92.2% ventricular paced. There was no atrial fibrillation, no ventricular tachycardia. There was concern for diaphragmatic stimulation; however, manifestation of back pain from probable diaphragmatic stimulation has resolved since 02/21/19. To follow up with [facility] in the next week. 6. History of PAF; chads vasc >2 historically on Eliquis therapy which is on hold due to Plts. On Sotalol. 02/21/2019 device check revealed zero AF episodes. 7. Disposition, pending course. We will follow closely. Dr. Werner Schmidt has personally seen and examined the patient and agrees with the above assessment and plan. We will proceed with transesophageal echocardiogram and make further recommendations following procedure. EDER VAUGHAN NP [id number]/[facility] #: [id number] MAYURI
--- NOTE | 2019-02-27 15:49 | TEE ---
*[facility]* [place] [address] Fax #: [phone] Transesophageal Echocardiogram Patient: Mk Conroy : 1930 Study Date: 02/27/2019 Age: 88 Gender: M HR: 86 bpm Height: 67 in /170.2 cm BSA: 1.91 m^2 Weight: 168 lb /76.4 kg BMI: 26.4 kg/m^2 *Speech And Language Specialist: Jody Neely [facility] *Referring Physician: * Josselyn Day *Reading Physician: * Werner Schmidt MD Indications: Bacteremia. History: Atrial fibrillation. Coronary artery disease. Mitral regurgitation. Risk factors: Hypertension. Dyslipidemia. Labs, prior tests, procedures, and surgery: Transvascular aortic valve replacement. Conclusions Summary: - Left ventricle: Systolic function is moderately to severely reduced. The estimated ejection fraction is 30-35%. Global hypokinesis. - Right ventricle: Pacer wire noted in the right ventricle. No evidence of vegetation. - Left atrium: There is no evidence of a thrombus in the atrial cavity or appendage. - Right atrium: Pacer wire noted in right atrium. No evidence of vegetation. - Mitral valve: There is no evidence of a vegetation. There is moderate to severe regurgitation. - Aortic valve: There is a bioprosthetic valve. TAVR There is no evidence of a vegetation. There is no significant regurgitation. - Tricuspid valve: There is moderate regurgitation. - Pericardium, extracardiac: A trace pericardial effusion is identified. Study data: Diagnostic Transesophageal Echocardiogram Consent: The risks and benefits of the procedure, including alternatives were discussed with the patient and/or their health care product sales representative and written informed consent was obtained. Procedure: Initial setup: The patient was brought to the laboratory in the fasting state.Intravenous access was obtained. Surface ECG leads, heart rate, heart rhythm, blood pressure measurements, pulse oximetric signals, and mainstream end-tidal CO2 tracings were monitored throughout the procedure. Sedation. Moderate sedation was administered by nursing staff. History and physical as well as labs were reviewed. An oral bite block was inserted for protection of oral dentition. The patient was placed in the left lateral decubitus position. Topical anesthesia was obtained using viscous lidocaine. A transesophageal probe was inserted by the attending shellfish harvester. Transesophageal echocardiography was performed, image quality was good, and all standard views were attempted within the limitations of patient tolerance and safety. Multiple 2D, color flow Doppler and spectral Doppler images were obtained. The transesophageal probe was removed. There was no blood loss.No specimens obtained.No tubes, implants, or drains. Location: Procedure room. Patient status: Inpatient. Patient room number: 443. Study completion: The patient tolerated the procedure well. There were no complications. Administered medications: Midazolam, 2mg. Fentanyl, 25mcg. Rhythm: Atrial fibrillation. Findings Left ventricle: The cavity size is mildly dilated. Systolic function is moderately to severely reduced. The estimated ejection fraction is 30-35%. Global hypokinesis. Right ventricle: The cavity size is mildly dilated. Pacer wire noted in the right ventricle. No evidence of vegetation. Systolic function is normal. Left atrium: The atrium is severely dilated. There is no evidence of a thrombus in the atrial cavity or appendage. There is spontaneous echo contrast ("smoke"). Right atrium: The atrium is severely dilated. Pacer wire noted in right atrium. No evidence of vegetation. The Eustachian valve appeared prominant. Atrial septum: A PFO is not demonstrated by color Doppler. Mitral valve: The leaflets are mildly thickened. There is no evidence of a vegetation. There is no evidence of stenosis. There is moderate to severe regurgitation. Aortic valve: There is a bioprosthetic valve. TAVR The leaflets are normal thickness. There is no evidence of a vegetation. There is no evidence of stenosis. There is no significant regurgitation. Tricuspid valve: The leaflets are normal thickness. There is no evidence of a vegetation. There is no evidence of stenosis. There is moderate regurgitation. Pulmonic valve: The leaflets are normal thickness. There is no evidence of a vegetation. There is no evidence of stenosis. There is trace regurgitation. Aorta: Aortic arch: The aortic arch is calcified. Descending aorta: The descending aorta is calcified. The aortic root appears normal. Pericardium: A trace pericardial effusion is identified. Pulmonary arteries: The main pulmonary artery is normal-sized. Systemic veins: Inferior vena cava: The vessel is normal in size. Superior vena cava: The vessel is appears normal. Measurements Aortic valve Value Ref Tricuspid valve Value Ref Odalis diam, ED 2.3 cm ---- TR peak v 2.76 m/sec <=2.8 Odalis diam/bsa, ED 1.2 cm/m^2 ---- Peak RV-RA grad, S 30 mm Hg ----- Peak v, S 1.19 m/sec ---- Max TR sherita 2.99 m/sec ----- Peak grad, S 6.0 mm Hg ---- Aortic root Value Ref Mitral valve Value Ref Root diam 3.4 cm <4.1 Peak E 0.77 m/sec ---- Decel time 79 ms ---- Ascending aorta Value Ref Peak grad, D 2.4 mm Hg ---- AAo AP diam, S 3.2 cm ----- Legend: (L) and (H) izabella values outside specified reference range. Prepared and electronically signed by Werner Schmidt MD 02/27/2019 15:48
--- NOTE | 2019-02-27 18:49 | PN ---
Subjective Date of Service: 02/27/19 Interval History: No acute events overnight. Patient reports feeling well and back to his baseline today. Tolerated IRASEMA and it was without vegetations. Surveillance blood cultures have cleared. Leukocytosis resolved. Pending ID consult today. Will trial patient off Romo catheter, which was placed during admission for retention. Patient denies SOB, orthopnea, FOWLER. Denies fevers, chills, chest pain, abd pain , n/v/c/d. Objective Active Medications: Acetaminophen (Tylenol Tab*) 650 mg PO Q6H PRN PRN Reason: MILD PAIN or TEMP > 100.4 Last Admin: 02/25/19 20:55 Dose: 650 mg Atorvastatin Calcium (Lipitor*) 40 mg PO DAILY [facility] Last Admin: 02/27/19 08:43 Dose: 40 mg Ezetimibe (Zetia Tab*) 10 mg PO DAILY [facility] Last Admin: 02/27/19 08:43 Dose: 10 mg Finasteride (Proscar Tab*) 5 mg PO DAILY [facility] Last Admin: 02/27/19 08:43 Dose: 5 mg Guaifenesin (Robitussin 100 Mg/5ml Liq) 5 ml PO Q6H PRN PRN Reason: COUGH Oxacillin Sodium 2 gm/ Sodium (Chloride) 100 mls @ 200 mls/hr IVPB Q4H [facility] Last Admin: 02/27/19 17:59 Dose: 200 mls/hr Sotalol HCl (Betapace Tab*) 40 mg PO BID [facility] Last Admin: 02/27/19 08:43 Dose: 40 mg Vital Signs - 8 hr 02/27/19 02/27/19 02/27/19 11:15 11:20 11:28 Temperature 99.2 F Pulse Rate 81 Respiratory 17 23 Rate Blood Pressure 119/74 (mmHg) O2 Sat by Pulse 94 Oximetry 02/27/19 02/27/19 02/27/19 11:34 12:00 12:09 Temperature Pulse Rate 94 92 Respiratory 18 29 Rate Blood Pressure 135/98 (mmHg) O2 Sat by Pulse 96 74 Oximetry 02/27/19 02/27/19 02/27/19 12:14 12:19 12:24 Temperature Pulse Rate 80 88 78 Respiratory Rate Blood Pressure 127/72 127/74 104/65 (mmHg) O2 Sat by Pulse 97 97 98 Oximetry 02/27/19 02/27/19 02/27/19 12:29 12:34 12:39 Temperature Pulse Rate 81 80 82 Respiratory Rate Blood Pressure 105/68 97/63 99/61 (mmHg) O2 Sat by Pulse 98 95 95 Oximetry 02/27/19 02/27/19 02/27/19 12:44 12:49 12:54 Temperature Pulse Rate 80 79 79 Respiratory Rate Blood Pressure 104/62 106/65 110/65 (mmHg) O2 Sat by Pulse 95 95 96 Oximetry 02/27/19 02/27/19 02/27/19 12:59 13:22 15:15 Temperature 96.3 F 97.5 F Pulse Rate 79 81 Respiratory 20 16 Rate Blood Pressure 113/69 133/79 127/88 (mmHg) O2 Sat by Pulse 96 98 99 Oximetry Oxygen Devices in Use Now: None Appearance: well appearing elderly man in NAD Eyes: No Scleral Icterus Ears/Nose/Mouth/Throat: Clear Oropharnyx, Mucous Membranes Moist Neck: NL Appearance and Movements; NL JVP, Trachea Midline Respiratory: Symmetrical Chest Expansion and Respiratory Effort, Clear to Auscultation Cardiovascular: NL Sounds; No Murmurs; No JVD, RRR Abdominal: NL Sounds; No Tenderness; No Distention, No Hepatosplenomegaly Extremities: No Edema Skin: No Rash or Ulcers Neurological: Alert and Oriented x 3, NL Muscle Strength and Tone Result Diagrams: 02/27/19 06:00 02/27/19 06:01 Assess/Plan/Problems-Billing Assessment: 88M with afib on Eliquis, 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 - Patient Problems (1) MSSA bacteremia Comment: Concerning for infective endocarditis with recent valve replacement and pacer insertion, but IRASEMA negative. Oher sources possible include pneumonia and urine. Sputum growing staph and pt has small pleural effusions. - appreciate ID input - iv oxacillin Q4h for now - ideally should start triple therapy including iv gentamicin and rifampicin, however in view of his thrombocytopenia and hyperbilirubinemia (2) Atrial fibrillation Comment: Rate controlled - holding Eliquis until platelets improve - cont sotalol (3) HTN (hypertension) Comment: - holding lisinopril and furosemide given recent sepsis - monitor BP and restart as needed (4) Thrombocytopenia Comment: Chronic. Pt denies history of work up. - check RUQ ultrasound and HCV antibody, given elevated bilis (5) Retention of urine Comment: UA clear, UCx negative. - likely due to underlying BPH - trial off romo 02/27 (6) Hyperbilirubinemia Comment: Acute on Chronic, with baseline 1.4. 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 - cont to monitor (7) Troponin level elevated Comment: Suspect demand ischemia in the setting of severe sepsis, but patient does have a history of CAD. No events on tele. - appreciate cards input - DC tele (8) DVT prophylaxis Comment: - Patient has score of 3 on the DVT prophylaxis risk guide. - Continue Eliquis. (9) Full code status Comment: - Code status d/w patient and he wishes to be Full code. Status and Disposition: Inpatient Medicine.
[2019-02-28] MEDS: Oxacillin(*) 2 GM in NS 0.9% 100 ML* 100 ML IVPB SCH ×6 (02:12→21:21)
[2019-02-28 06:04] LABS: Hematocrit 41 % (42-52); Hemoglobin 13.9 g/dL (14.0-18.0); Mean Corpuscular HGB Conc 34 g/dL (31-36); Mean Corpuscular Hemoglobin 32 pg (27-31); Mean Corpuscular Volume 94 fL (80-94); Mean Platelet Volume 10.3 fL (7.4-10.4); Platelet Count 46 10^3/uL (150-450); Red Blood Count 4.32 10^6 /uL (4.18-5.48); Red Cell Distribution Width 14 % (10-15); White Blood Count 8.4 10^3/uL (3.5-10.8)
[2019-02-28 06:14] LABS: Albumin 2.9 g/dL (3.2-5.2); Albumin/Globulin Ratio 1.2 (1-3); C Reactive Protein 56.27 mg/L (<8.01); Globulin 2.4 g/dL (2-4); Indirect Bilirubin 0.6 mg/dL (0.3-1.0); Total Bilirubin 0.9 mg/dL (0.2-1.0); Total Protein 5.3 g/dL (6.4-8.9)
--- NOTE | 2019-02-28 06:44 | PN ---
Subjective Date of Service: 02/28/19 Interval History: HD 4 on 02/28 No acute overnight events Vitals stable Labs- Plt 46,000 Patient doesnot have any complaint. he feels fine. Seen along with his family members. Had long talk about ongoing issues. patient curious about iv antibiotics. Objective Active Medications: Acetaminophen (Tylenol Tab*) 650 mg PO Q6H PRN PRN Reason: MILD PAIN or TEMP > 100.4 Last Admin: 02/25/19 20:55 Dose: 650 mg Atorvastatin Calcium (Lipitor*) 40 mg PO DAILY [facility] Last Admin: 02/27/19 08:43 Dose: 40 mg Ezetimibe (Zetia Tab*) 10 mg PO DAILY [facility] Last Admin: 02/27/19 08:43 Dose: 10 mg Finasteride (Proscar Tab*) 5 mg PO DAILY [facility] Last Admin: 02/27/19 08:43 Dose: 5 mg Guaifenesin (Robitussin 100 Mg/5ml Liq) 5 ml PO Q6H PRN PRN Reason: COUGH Oxacillin Sodium 2 gm/ Sodium (Chloride) 100 mls @ 200 mls/hr IVPB Q4H [facility] Last Admin: 02/28/19 05:25 Dose: 200 mls/hr Sotalol HCl (Betapace Tab*) 40 mg PO BID [facility] Last Admin: 02/27/19 21:17 Dose: 40 mg Vital Signs - 8 hr 02/27/19 02/28/19 23:15 03:15 Temperature 97.4 F 97.6 F Pulse Rate 88 74 Respiratory 18 20 Rate Blood Pressure 109/46 128/82 (mmHg) O2 Sat by Pulse 98 99 Oximetry Oxygen Devices in Use Now: None Exam: Oxygen Devices in Use Now: None Appearance: well appearing elderly man in NAD Eyes: No Scleral Icterus Ears/Nose/Mouth/Throat: Clear Oropharnyx, Mucous Membranes Moist Neck: NL Appearance and Movements; NL JVP, Trachea Midline Respiratory: Symmetrical Chest Expansion and Respiratory Effort, Clear to Auscultation Cardiovascular: NL Sounds; No Murmurs; No JVD, RRR Abdominal: NL Sounds; No Tenderness; No Distention, No Hepatosplenomegaly Extremities: No Edema Skin: No Rash or Ulcers Neurological: Alert and Oriented x 3, NL Muscle Strength and Tone Result Diagrams: 03/01/19 08:11 02/27/19 06:01 Additional Lab and Data: Laboratory Tests 02/25/19 02/25/19 02/25/19 12:16 12:16 12:24 WBC 14.9 H Hgb 14.7 Hct 44 Plt Count 68 L INR (Anticoag Therapy) 1.52 H Sodium 137 Potassium 4.5 Chloride 101 Carbon Dioxide 25 Anion Gap 11 BUN 22 Creatinine 1.20 H Glucose 142 H Lactic Acid Calcium 9.5 Total Bilirubin 2.40 H AST 16 ALT 13 Alkaline Phosphatase 77 Troponin I 0.07 H* C-Reactive Protein 60.98 H 02/25/19 12:24 WBC Hgb Hct Plt Count INR (Anticoag Therapy) Sodium Potassium Chloride Carbon Dioxide Anion Gap BUN Creatinine Glucose Lactic Acid 2.5 H* Calcium Total Bilirubin AST ALT Alkaline Phosphatase Troponin I C-Reactive Protein Microbiology and Other Data: Microbiology 02/26/19 10:00 Gram Stain - Final Sputum Expectorated Sputum Culture - Preliminary Staphylococcus Aureus 02/26/19 10:41 Aerobic Blood Culture - Preliminary Blood Venous No Growth Day 1 Anaerobic Blood Culture - Preliminary No Growth Day 1 02/26/19 10:36 Aerobic Blood Culture - Preliminary Blood Venous No Growth Day 1 Anaerobic Blood Culture - Preliminary No Growth Day 1 02/25/19 20:35 Urine Culture - Final Urine No Growth (<1,000 CFU/mL) 02/25/19 12:24 Aerobic Blood Culture - Final Blood Venous Staphylococcus Aureus Anaerobic Blood Culture - Final Staphylococcus Aureus Blood MRSA/MSSA (PCR) - Final Mrsa Negative S.aureus Positive 02/25/19 12:16 Aerobic Blood Culture - Final Blood Venous Staphylococcus Aureus Anaerobic Blood Culture - Final Staphylococcus Aureus Blood MRSA/MSSA (PCR) - Final Mrsa Negative S.aureus Positive 02/25/19 20:35 Legionella Urinary Antigen - Final Urine Negative Legionella Antigen Streptococcus pneumoniae Ag Screen - Final Negative S. pneumo Antigen Diagnostic Imaging: Patient Name: HATTIE ATWOOD Medical Record#: [id number] Ordering Physician: Abdulkadir Coles MD Acct.#: [id number] : 1930 Age: 88 Sex: M Location: EMERGENCY DEPARTMENT Exam Date: 02/25/19 1204 ADM Status: REG ER Order Information: CHEST AP OR PORT Accession Number: [id number] CPT: 91133 INDICATION: Sepsis COMPARISON: November 02, 2018 chest radiograph TECHNIQUE: A portable view of the chest was obtained. FINDINGS: There is mild perihilar predominant airspace opacification. No large pleural effusion is identified. The enlarged cardiac silhouette, with a double density sign about the right heart border, is unchanged status post aVR. The vascular markings are prominent. Armida B lines are present. A left chest wall pacemakers in place. The upper abdominal contents are grossly unremarkable. The osseous structures are grossly unremarkable aside from degenerative changes. IMPRESSION: 1. Constellation of findings suggestive of mild mixed interstitial and alveolar pulmonary edema. Infiltrate can have a similar appearance. 2. Unchanged cardiomegaly status post aVR. 3. Left chest wall pacemaker in place. <Electronically signed by Raghu Og MD in [place]> 02/25/19 1247 Dictated By: Raghu Og MD Dictated Date/Time: 02/25/19 1240 Transcribed Date/Time: 02/25/19 1240 EKG Data: Afib/V paced rhythm at 113 bpm, with no acute ischemic changes. 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 HAs pleural effusion-s/p thoracentesis - Patient Problems (1) MSSA bacteremia Comment: -Concerning for infective endocarditis with recent valve replacement and pacer insertion, but IRASEMA negative. -no clear source identified yet- sputum grows S. aureus but no infiltrates on Xray. - appreciate ID input- needs iv ancef for 6 weeks and probably pacer removal in [place] as an outpt. - iv oxacillin Q4h for now - final culture result from 02/26 still growing S. aureus -will follow blood culture -PICC line on hold (2) Atrial fibrillation Comment: -Rate controlled - restarting eliquis; as plt is 50,000 - cont sotalol (3) HTN (hypertension) Comment: - holding lisinopril and furosemide given recent sepsis - monitor BP and restart as needed (4) Hyperbilirubinemia Comment: -Acute on Chronic. 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 - cont to monitor (5) Retention of urine Comment: -UA clear, UCx negative. - likely due to underlying BPH - trial off romo 02/27 (6) Pleural effusion Current Visit: Yes Status: Acute Code(s): J90 - PLEURAL EFFUSION, NOT ELSEWHERE CLASSIFIED SNOMED Code(s): 89241730 Comment: -s/p thoracentesis- removed about 450 cc fluid-straw colored; slightly turbid -waiting fluid results -pending fluid protein and LDH and culture (7) Thrombocytopenia Comment: -Chronic. Pt denies history of work up. - US showed cavernous hemangioma- no further workup at present; can follow as outpt -hepatitis negative -Appreciate hem input -Improving (8) Troponin level elevated Comment: -Suspect demand ischemia in the setting of severe sepsis, but patient does have a history of CAD. No events on tele. - appreciate cards input - DC tele on 02/27 (9) DVT prophylaxis Comment: - Patient has score of 3 on the DVT prophylaxis risk guide. - eliquis restarted (10) Full code status Comment: - Code status d/w patient and he wishes to be Full code. Status and Disposition: Inpatient Medicine. Attending: Josselyn Day Attestation Documenting Resident: Wendy Early Supervising Physician: Josselyn Day Attestation: This service has been performed in part by a resident under the direction of a teaching physician.I, Josselyn Day, performed the service, or was physically present during the critical, or franco portions of the service, furnished by the resident. I participated in the management of the patient.
[2019-02-28 07:04] LABS: Hepatitis C Antibody Negative (Negative)
[2019-02-28] MEDS: Sotalol TAB* 80 MG PO SCH ×2 (10:03→21:22)
[2019-02-28] MEDS: Finasteride TAB* 5 MG PO SCH (10:03)
[2019-02-28] MEDS: Atorvastatin* 40 MG TAB PO SCH (10:04)
[2019-02-28] MEDS: Ezetimibe TAB* 10 MG PO SCH (10:04)
--- NOTE | 2019-02-28 15:44 | CONS ---
CONSULTATION REPORT: DATE OF CONSULT: 02/28/19 PRIMARY CARE PROVIDER: Dr. Adali Davis. PROVIDER REQUESTING CONSULTATION: Dr. Josselyn Day. CONSULTING SERVICE: Infectious Disease. PROVIDER: Devin Oconnor NP ATTENDING PROVIDER: Dr. Oli Huerta.* (DICTATED BY DEVIN AGEE NP) REASON FOR CONSULT: Staph aureus bacteremia. IMPRESSION: 1. Methicillin-sensitive Staphylococcus aureus bacteremia. The patient presented to the hospital febrile and initial blood cultures returned with 4/4 bottles positive for Staphylococcus aureus. Repeat blood cultures on 02/26/19 with no growth to date. He initially underwent a transthoracic echocardiogram showing no vegetation and then yesterday underwent a transesophageal echocardiogram showing no vegetation. This is in the setting of a recent transcatheter aortic valve replacement and pacemaker placement from October 2018. He denies any other prosthetic material being present. No other source of infection identified. This likely represents endocarditis in the setting of a pacemaker. Noted to have staph aureus in the sputum, do not feel that this is the source of his bacteremia. He has been receiving oxacillin. 2. Complex pleural effusion. No signs of pneumonia based on chest xray, exam and symptoms. Will have a thoracentesis later day. 3. Aortic stenosis status post transcatheter aortic valve replacement. 4. Cardiomyopathy, status post pacemaker placement. RECOMMENDATION\PLAN: Recommend continuing oxacillin for now. The patient will need a 6 week course of IV antibiotics. Further recommendations will be made after the thoracentesis and culture results from that fluid. He will need to have a PICC line placed. HISTORY OF PRESENT ILLNESS: Mr. Conroy is an 88-year-old male with past medical history significant for aortic stenosis status post TAVR and pacemaker placement in October of this year, cardiomyopathy, hypertension, hyperlipidemia, mitral valve regurgitation, coronary artery disease, and peripheral vascular disease. He states that he was in his usual state of health, cooked dinner for his family on . When he woke on Wednesday, he was feeling unwell with nausea, did not really eat on Wednesday due to the nausea. On Wednesday morning when he awoke, he continued to feel unwell with nausea and decreased energy. Per his daughter at bedside, the family who was with him reported that he was feeling lightheaded and moaning due to abdominal pain. He called his daughter who was out of town who recommended that he go to the ER, she was concerned he could be having a heart issue. He presented to the emergency room, he was found to have a 101.5 fever. He had blood cultures drawn and he was admitted for severe sepsis, felt to be secondary to pneumonia. While in the hospital, he initially underwent a transthoracic echocardiogram showing no vegetation. His blood cultures returned with 4/4 bottles positive for Staph aureus. He had no growth in the urine culture. His leukocytosis resolved. He had a sputum culture with Staph aureus. He then underwent a transesophageal echocardiogram showing no signs of vegetation. He was noted to have a small pleural effusion due to elevated LFTs. He underwent a liver ultrasound showing a hypoechoic lobulated structure and that may represent a cavernous hemangioma, simple hepatic cyst, a normal-appearing gallbladder with sludge. Repeat blood cultures on 02/26/19 with no growth. He has remained afebrile since 02/26/19, his leukocytosis resolved. The patient denies fevers since admission; denies chills, joint pain muscle pain or recent travel. He reports shortness of breath with exertion that is worse than his baseline. He reports a cough prior to admission, but states this is resolved. He denies any prosthetic material other than his TAVR and a pacemaker. PAST MEDICAL HISTORY: 1. Aortic stenosis. 2. Cardiomyopathy. 3. Hypertension. 4. Hyperlipidemia. 5. Mitral valve regurgitation. 6. Coronary artery disease, three vessel. 7. Peripheral vascular disease. PAST SURGICAL HISTORY: 1. Status post a TAVR in October 2018. 2. Status post pacemaker placement October 2018. HOME MEDICATIONS: 1. Furosemide 20 mg by mouth Wednesday, Wednesday, and Wednesday. 2. Sotalol 40 mg by mouth daily. 3. Finasteride 5 mg by mouth daily. 4. Atorvastatin 40 mg by mouth daily. 5. Eliquis 5 mg by mouth twice daily. 6. Lisinopril 2.5 mg by mouth daily. 7. Zetia 10 mg by mouth daily. HOSPITAL MEDICATIONS: 1. Acetaminophen 650 mg by mouth every 6 hours as needed for pain or fever. 2. Atorvastatin 40 mg by mouth daily. 3. Zetia 10 mg by mouth daily. 4. Proscar 5 mg by mouth daily. 5. Guaifenesin 5 mL by mouth every 6 hours as needed for cough. 6. Oxacillin 2 g IV every 4 hours. 7. Sotalol 40 mg by mouth twice daily. ALLERGIES: No known drug allergies. FAMILY HISTORY: Denies family history of recurrent or resistant infections. Father passed in his 40s from heart disease and he had a son passed at 51 he believes from heart disease. Maternal grandmother with diabetes. Mother with a history of what he believes was uterine cancer. SOCIAL HISTORY: Occasionally drinks alcohol. He is a former smoker, smoking from age 19 to 31. Denies recreational drug use. REVIEW OF SYSTEMS: I performed a 10-point review of systems. All the pertinent positives and negatives are mentioned in the history of present illness, remaining review of systems are negative. PHYSICAL EXAM: Vital Signs: Temperature 97.4, heart rate 88, respiratory rate 16, O2 sat 99% on room air, blood pressure 130/76. General Appearance: In no acute distress, sitting up in a chair. Head: Normocephalic, atraumatic. ENT: Extraocular movements are intact. No subconjunctival hemorrhage, moist mucous membranes. Neck: Supple. No lymphadenopathy. Neurological: Alert and oriented. Cranial Nerves: II through XII are grossly intact. He moves all extremities. Cardiovascular: Regular rate and rhythm, S1, S2 present. No murmurs, rubs or gallops heard. Respiratory: Lungs are clear to auscultation bilateral. No accessory muscle use. Abdomen: Bowel sounds present. Abdomen: Soft, nontender, nondistended. Extremities: No lower extremity edema. DP/ PT pulses are 2+ and symmetric. Musculoskeletal: No clubbing or cyanosis noted. He exhibits good strength in all extremities. He has no edema, erythema , or effusions noted. In his joints, he is noted to have some crepitus in his left knee with palpation. Psychological: Calm and cooperative. Skin: No rashes or abnormalities seen. DIAGNOSTIC STUDIES/LAB DATA: Sodium 140, potassium 3.9, chloride 110, CO2 24, BUN 22, creatinine 1.07, glucose 98. White blood cell count 8.4, hemoglobin 13.9, hematocrit 41, platelet count 46. Blood cultures from 02/25/19 with 4/4 positive for Staph aureus. Repeat blood cultures on 02/26/19 with no growth to date. Sputum culture with Staph aureus. CRP 56.27 down from 98.26. Please see impression and recommendations outlined above. Recommendations have been discussed with Dr. Wendy Early. Thank you for asking us to see Mr. Conroy in consultation The case has been reviewed with my attending, Dr. Oli Huerta, who agrees with the plan of care. Reviewed by BEKAH BARNES 03/03/19 0915 [id number]/[facility] #: [id number] MTDBrett
--- NOTE | 2019-02-28 16:15 | BRIEFOPN ---
Brief Operative/Procedure Note - Operation Details Pre-Op Diagnosis: Moderate lt effusion Post-Op Diagnosis: Moderate lt effusion Procedures: Thoracentesis with U/S guidance on left side Surgeon(s)/Proceduralists: uzma Ponce Sristee Niraula Anesthesia: 1% lidocaine 5cc Estimated Blood Loss: None Findings: Moderate lt effusion, slightly turbid, no loculations Specimen(s)/Culture(s) Description: Fluid for cytology, biochem, cell count, cultures Complications: None
[2019-02-28 16:47] LABS: Body Fluid Source Pleural Fluid
--- NOTE | 2019-02-28 18:04 | CONS ---
PULMONARY CONSULTATION REPORT: DATE OF CONSULT: 02/28/19 CONSULTATION REQUESTED BY: Dr. Early. REASON FOR CONSULT: Evaluation of pleural effusion. HISTORY OF PRESENT ILLNESS: The patient is an 88-year-old male with a history of atrial fibrillation; aortic stenosis, status post TAVR in October of 2018; systolic CHF with EF of 25% to 30%; history of pacemaker placement; hypertension ; dyslipidemia; avfjkcde-vb-eyqsfy mitral regurgitation; coronary artery disease ; peripheral vascular disease. The patient is known to me from previous evaluation when I saw him as an outpatient for pleural effusion. He was noted to have small left pleural effusion at that time. He was not symptomatic with it. He has declined thoracentesis at that time. He also had lower extremity edema and was treated conservatively with diuretics. The patient presents with shortness of breath. He has been active and doing well on , helped to prepare dinner and was in good spirits. Day after that, he started noticing dry cough, malaise, and had fever and shortness of breath. He had poor oral intake. Denied nausea, vomiting, diarrhea, or urinary complaints. Family brought him to the ED for further evaluation. Further evaluation in the emergency room included labs, which showed elevated lactate at 2.7, WBC at 14.9 , and low platelets. The patient had chest x-ray at that time, which showed left effusion and small right effusion with some atelectasis of the left lung and also some vascular congestion. The patient had septic workup done, blood cultures were positive for Staph aureus. Sputum cultures were also positive for Staph aureus. The patient was initiated on antibiotics, currently on oxacillin. He was also seen by Infectious Disease. I have personally reviewed chest x-ray and ultrasound done recently in this admission. The patient noted to have complex appearing left effusion with some fluid densities. Pulmonary consultation was requested for thoracentesis. The patient was seen and examined at bedside. Family is at bedside. The patient denies significant dyspnea. He does appear to be short of breath with minimal movement and with talking. Denies significant cough or sputum production currently. No accessory muscle usage. Otherwise appeared comfortable. PAST MEDICAL HISTORY: As described above: 1. Atrial fibrillation. 2. Aortic stenosis. 3. Status post TAVR in October of 2018 for aortic valve. 4. Lfwaltoy-ca-crldwj mitral regurgitation. 5. Coronary artery disease. 6. Hypertension. 7. Dyslipidemia. 8. Systolic CHF. 9. Pacemaker placement. 10. Peripheral vascular disease. MEDICATIONS AT HOME: 1. Tylenol. 2. Eliquis, which is being held due to platelets. 3. Lipitor. 4. Zetia. 5. Proscar. 6. Guaifenesin. 7. Sotalol. ALLERGIES: No known drug allergies. FAMILY HISTORY: Mother has a history of cancer, also with a history of diabetes and hypertension. SOCIAL HISTORY: The patient is a former smoker, smoked between ages 19 to 31. He drinks 3 glasses of wine in a week. No drug abuse. REVIEW OF SYSTEMS: All 14 systems reviewed and as per HPI. PHYSICAL EXAM: An elderly male, in bed, in no apparent distress. Temperature 97.2, pulse 87 beats per minute, respiratory rate 18 per minute, O2 sat 96% on room air, blood pressure 130/58. HEENT: Pupils equal, reactive to light. Mucous membranes moist. Lungs: Diminished air entry at bases bilaterally, left greater than right. Cardiovascular: S1, S2 present, regular. Abdomen: Soft, nontender, nondistended. Bowel sounds present. Extremities: Normal range of motion. Skin: No rash. Neuro: Alert, awake, oriented x3. No focal deficits. DIAGNOSTIC STUDIES/LAB DATA: WBC count decreased from 14.9 on admission to 8.4 , hemoglobin 13.9, hematocrit 41, platelet count 46. Sodium 140, potassium 3.9 , chloride 110, bicarb 24, BUN 22, creatinine 1.04. CRP elevated. Chest x-ray and ultrasound as described above in HPI. IMPRESSION AND RECOMMENDATIONS: 88-year-old male with a history of TAVR recently in October, admitted with worsening shortness of breath and found to have larger pleural effusion on the left side compared to what he has in the past. The patient also with bacteremia with methicillin-resistant Staphylococcus aureus and also with sputum positive for methicillin-resistant Staphylococcus aureus. The patient had thoracentesis at bedside for symptomatic and therapeutic benefit. The patient tolerated the procedure well. 430 mL of dark yellow fluid slightly turbid was removed under manual suction. Fluid sent to the lab for cultures and cytological and biochemical testing. Postprocedure chest x-ray was ordered and is pending at the time of dictation. Will await results from the pleural fluid. Continue with antibiotics as per ID. The patient had complete drainage of the fluid and there are no loculations in the fluid. I do not think he will need any other interventions for this pleural fluid. Thank you for allowing me to participate in the care of your patient. Will follow up with you. [id number]/[facility] #: [id number] MAY[place]
[2019-02-28 18:37] LABS: Body Fluid NRBC 0
[2019-02-28 18:38] LABS: Body Fluid Other Cells 17
[2019-02-28] MEDS ORDERED: NS 0.9% 100 ML* 0 ML ONE (21:16)
--- NOTE | 2019-03-01 02:13 | PRO ---
THORACENTESIS REPORT: DATE OF PROCEDURE: 02/28/19 - ROOM #443 PREPROCEDURAL DIAGNOSIS: Moderate left pleural effusion with complexities on ultrasound. ANESTHESIA: Local anesthesia with 1% lidocaine. DESCRIPTION OF PROCEDURE: Informed consent was obtained from the patient prior to the procedure after all the risks and benefits were thoroughly explained. The patient recently undergoing evaluation for shortness of breath. He has known history of small left pleural effusion, which was thought to be secondary to underlying systolic CHF and mitral regurgitation. Further evaluation included chest x-ray, which showed moderate pleural effusion. The patient was scheduled for ultrasound-guided thoracentesis on the left side for diagnostic and therapeutic purposes. Informed consent was obtained from the patient prior to the procedure of all the risks and benefits were thoroughly explained. The patient was sitting up and leaning forward during the procedure. Appropriate time-out was performed and agreed on by attending staff prior to the procedure. A portable ultrasound was utilized at bedside to localize the space on the left side. Strict aseptic precautions and barrier techniques were utilized. Area was disinfected with chlorhexidine. 1% lidocaine was instilled intradermally subcutaneously down into the pleural space taking precautions. A sterile drape was placed. A #11 scalpel blade was used to make a stab incision. CareFusion 8-Swiss thoracentesis catheter was subsequently inserted under manual suction down into pleural space taking precautions. Catheter was left in place and needle was removed. 430 cc of dark yellow fluid slightly turbid was removed under manual suction. Catheter was then removed and sterile Band-Aid applied. The patient tolerated the procedure well. Post-procedure chest x-ray was ordered and is pending at the time of dictation. [id number]/[facility] #: [id number] [facility] HOSPITALBrett
[2019-03-01] MEDS: Oxacillin(*) 2 GM in NS 0.9% 100 ML* 100 ML IVPB SCH ×3 (02:22→09:44)
--- NOTE | 2019-03-01 07:25 | PN ---
Subjective Date of Service: 03/01/19 Interval History: HD 5 on 03/01 No acute overnight events Vitals stable patient denies any complaint but has many questions regarding his illness. All of his questions were answered by multidisciplinary team- Cardio, ID, Hem and Im. Objective Active Medications: Acetaminophen (Tylenol Tab*) 650 mg PO Q6H PRN PRN Reason: MILD PAIN or TEMP > 100.4 Last Admin: 02/25/19 20:55 Dose: 650 mg Atorvastatin Calcium (Lipitor*) 40 mg PO DAILY [facility] Last Admin: 02/28/19 10:04 Dose: 40 mg Ezetimibe (Zetia Tab*) 10 mg PO DAILY [facility] Last Admin: 02/28/19 10:04 Dose: 10 mg Finasteride (Proscar Tab*) 5 mg PO DAILY [facility] Last Admin: 02/28/19 10:03 Dose: 5 mg Guaifenesin (Robitussin 100 Mg/5ml Liq) 5 ml PO Q6H PRN PRN Reason: COUGH Oxacillin Sodium 2 gm/ Sodium (Chloride) 100 mls @ 200 mls/hr IVPB Q4H [facility] Last Admin: 03/01/19 05:39 Dose: 200 mls/hr Sotalol HCl (Betapace Tab*) 40 mg PO BID [facility] Last Admin: 02/28/19 21:22 Dose: 40 mg Vital Signs - 8 hr 03/01/19 03/01/19 00:30 03:49 Temperature 97.4 F 97.7 F Pulse Rate 67 78 Respiratory 16 22 Rate Blood Pressure 126/62 121/61 (mmHg) O2 Sat by Pulse 98 99 Oximetry Oxygen Devices in Use Now: None Exam: Oxygen Devices in Use Now: None Appearance: well appearing elderly man in NAD Eyes: No Scleral Icterus Ears/Nose/Mouth/Throat: Clear Oropharnyx, Mucous Membranes Moist Neck: NL Appearance and Movements; NL JVP, Trachea Midline Respiratory: Symmetrical Chest Expansion and Respiratory Effort, Clear to Auscultation Cardiovascular: NL Sounds; soft Murmur on upper sternal border ; No JVD, RRR Abdominal: NL Sounds; No Tenderness; No Distention, No Hepatosplenomegaly Extremities: No Edema Skin: No Rash or Ulcers Neurological: Alert and Oriented x 3, NL Muscle Strength and Tone Result Diagrams: 03/01/19 08:11 02/27/19 06:01 Additional Lab and Data: Laboratory Tests 02/25/19 02/25/19 02/25/19 12:16 12:16 12:24 WBC 14.9 H Hgb 14.7 Hct 44 Plt Count 68 L INR (Anticoag Therapy) 1.52 H Sodium 137 Potassium 4.5 Chloride 101 Carbon Dioxide 25 Anion Gap 11 BUN 22 Creatinine 1.20 H Glucose 142 H Lactic Acid Calcium 9.5 Total Bilirubin 2.40 H AST 16 ALT 13 Alkaline Phosphatase 77 Troponin I 0.07 H* C-Reactive Protein 60.98 H 02/25/19 12:24 WBC Hgb Hct Plt Count INR (Anticoag Therapy) Sodium Potassium Chloride Carbon Dioxide Anion Gap BUN Creatinine Glucose Lactic Acid 2.5 H* Calcium Total Bilirubin AST ALT Alkaline Phosphatase Troponin I C-Reactive Protein Microbiology and Other Data: Microbiology 02/26/19 10:00 Gram Stain - Final Sputum Expectorated Sputum Culture - Preliminary Staphylococcus Aureus 02/26/19 10:41 Aerobic Blood Culture - Preliminary Blood Venous No Growth Day 1 Anaerobic Blood Culture - Preliminary No Growth Day 1 02/26/19 10:36 Aerobic Blood Culture - Preliminary Blood Venous No Growth Day 1 Anaerobic Blood Culture - Preliminary No Growth Day 1 02/25/19 20:35 Urine Culture - Final Urine No Growth (<1,000 CFU/mL) 02/25/19 12:24 Aerobic Blood Culture - Final Blood Venous Staphylococcus Aureus Anaerobic Blood Culture - Final Staphylococcus Aureus Blood MRSA/MSSA (PCR) - Final Mrsa Negative S.aureus Positive 02/25/19 12:16 Aerobic Blood Culture - Final Blood Venous Staphylococcus Aureus Anaerobic Blood Culture - Final Staphylococcus Aureus Blood MRSA/MSSA (PCR) - Final Mrsa Negative S.aureus Positive 02/25/19 20:35 Legionella Urinary Antigen - Final Urine Negative Legionella Antigen Streptococcus pneumoniae Ag Screen - Final Negative S. pneumo Antigen Diagnostic Imaging: Patient Name: HATTIE ATWOOD Medical Record#: [id number] Ordering Physician: Abdulkadir Coles MD Acct.#: [id number] : 1930 Age: 88 Sex: M Location: EMERGENCY DEPARTMENT Exam Date: 02/25/19 1204 ADM Status: REG ER Order Information: CHEST AP OR PORT Accession Number: [id number] CPT: 19913 INDICATION: Sepsis COMPARISON: November 02, 2018 chest radiograph TECHNIQUE: A portable view of the chest was obtained. FINDINGS: There is mild perihilar predominant airspace opacification. No large pleural effusion is identified. The enlarged cardiac silhouette, with a double density sign about the right heart border, is unchanged status post aVR. The vascular markings are prominent. Armida B lines are present. A left chest wall pacemakers in place. The upper abdominal contents are grossly unremarkable. The osseous structures are grossly unremarkable aside from degenerative changes. IMPRESSION: 1. Constellation of findings suggestive of mild mixed interstitial and alveolar pulmonary edema. Infiltrate can have a similar appearance. 2. Unchanged cardiomegaly status post aVR. 3. Left chest wall pacemaker in place. <Electronically signed by Raghu Og MD in [place]> 02/25/19 1247 Dictated By: Raghu Og MD Dictated Date/Time: 02/25/19 1240 Transcribed Date/Time: 02/25/19 1240 EKG Data: Afib/V paced rhythm at 113 bpm, with no acute ischemic changes. 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 HAs pleural effusion-s/p thoracentesis - Patient Problems (1) MSSA bacteremia Current Visit: Yes Status: Acute Code(s): R78.81 - BACTEREMIA SNOMED Code( s): 445716142 Comment: -Concerning for infective endocarditis with recent valve replacement and pacer insertion, but IRASEMA negative. -no clear source identified yet- sputum grows S. aureus but no infiltrates on Xray. - appreciate ID input- needs iv ancef for 6 weeks and probably pacer removal in [place] as an outpt. - iv oxacillin Q4h for now - final culture result from 02/26 still growing S. aureus -will follow blood culture -PICC line on hold (2) Atrial fibrillation Current Visit: Yes Status: Acute Code(s): I48.91 - UNSPECIFIED ATRIAL FIBRILLATION SNOMED Code(s): 67510212 Comment: -Rate controlled - restarting eliquis; as plt is 50,000 - cont sotalol (3) HTN (hypertension) Current Visit: Yes Status: Acute Code(s): I10 - ESSENTIAL (PRIMARY) HYPERTENSION SNOMED Code(s): 99467494 Comment: - holding lisinopril and furosemide given recent sepsis - monitor BP and restart as needed (4) Hyperbilirubinemia Current Visit: Yes Status: Acute Code(s): E80.6 - OTHER DISORDERS OF BILIRUBIN METABOLISM SNOMED Code(s): 42130938 Comment: -Acute on Chronic. 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 - cont to monitor (5) Retention of urine Current Visit: Yes Status: Acute Code(s): R33.9 - RETENTION OF URINE, UNSPECIFIED SNOMED Code(s): 408209565 Comment: -UA clear, UCx negative. - likely due to underlying BPH - trial off romo 02/27 (6) Pleural effusion Current Visit: Yes Status: Acute Code(s): J90 - PLEURAL EFFUSION, NOT ELSEWHERE CLASSIFIED SNOMED Code(s): 30321407 Comment: -s/p thoracentesis- removed about 450 cc fluid-straw colored; slightly turbid -waiting fluid results -pending fluid protein and LDH and culture (7) Thrombocytopenia Current Visit: Yes Status: Acute Code(s): D69.6 - THROMBOCYTOPENIA, UNSPECIFIED SNOMED Code(s): 841461350 Comment: -Chronic. Pt denies history of work up. - US showed cavernous hemangioma- no further workup at present; can follow as outpt -hepatitis negative -Appreciate hem input -Improving (8) Troponin level elevated Current Visit: Yes Status: Acute Code(s): R79.89 - OTHER SPECIFIED ABNORMAL FINDINGS OF BLOOD CHEMISTRY SNOMED Code(s): 414401403 Comment: -Suspect demand ischemia in the setting of severe sepsis, but patient does have a history of CAD. No events on tele. - appreciate cards input - DC tele on 02/27 (9) Liver hemangioma Current Visit: Yes Status: Acute Code(s): D18.03 - HEMANGIOMA OF INTRA- ABDOMINAL STRUCTURES SNOMED Code(s): 46543983 Comment: -Asymptomatic -multiple; largest measure 3.6 cm - Can be followed up as an outpatient with repeat imaging in 3-6 month. (10) DVT prophylaxis Current Visit: Yes Status: Acute Code(s): Z29.9 - ENCOUNTER FOR PROPHYLACTIC MEASURES, UNSPECIFIED SNOMED Code(s): 845718837 Comment: - Patient has score of 3 on the DVT prophylaxis risk guide. - eliquis restarted (11) Full code status Current Visit: Yes Status: Acute Code(s): Z78.9 - OTHER SPECIFIED HEALTH STATUS SNOMED Code(s): 085542777 Comment: - Code status d/w patient and he wishes to be Full code. Status and Disposition: Inpatient Medicine. Attending: Josselyn Day Attestation Documenting Resident: Wendy Early Supervising Physician: Josselyn Day Attestation: This service has been performed in part by a resident under the direction of a teaching physician.I, Josselyn Day, performed the service, or was physically present during the critical, or franco portions of the service, furnished by the resident. I participated in the management of the patient.
[2019-03-01 08:59] LABS: ABS Eosinophils 0.1 10^3/ul (0-0.6); ABS Lymphocytes 1.6 10^3/ul (1.0-4.8); ABS Monocytes 0.8 10^3/ul (0-0.8); ABS Neutrophils 6.6 10^3/ul (1.5-7.7); Eosinophil % 0.8 %; Hematocrit 43 % (42-52); Hemoglobin 14.3 g/dL (14.0-18.0); Lymphocyte % 17.3 %; Mean Corpuscular HGB Conc 33 g/dL (31-36); Mean Corpuscular Hemoglobin 32 pg (27-31); Mean Corpuscular Volume 96 fL (80-94); Mean Platelet Volume 10.9 fL (7.4-10.4); Platelet Count 50 10^3/uL (150-450); Red Blood Count 4.49 10^6 /uL (4.18-5.48); Red Cell Distribution Width 14 % (10-15); White Blood Count 9.1 10^3/uL (3.5-10.8)
[2019-03-01] MEDS: Sotalol TAB* 80 MG PO SCH ×2 (09:44→20:35)
[2019-03-01] MEDS: Ezetimibe TAB* 10 MG PO SCH (09:44)
[2019-03-01] MEDS: Atorvastatin* 40 MG TAB PO SCH (09:44)
[2019-03-01] MEDS: Finasteride TAB* 5 MG PO SCH (09:44)
--- NOTE | 2019-03-01 11:21 | PN ---
Progress Note - Progress Note Date of Service: 03/01/19 SOAP: Subjective: CC: Bacteremia HPI: Mr. Conroy is an 88 yo male with PMH significant for aortic stenosis s/p TAVR, cardiomyopathy, HTN, HLS, mitral valve regurgitaiton, CAD, and PVD; presented to the hospital and was found to be febrile. Denies fever, chills, nausea, vomiting, or ABD pain. He reports loose stools, multiple times daily he is unable to quantify this and states that it is every time he uses the bathroom. Objective: Vital Signs - 8 hr 03/01/19 03/01/19 03/01/19 03:49 07:20 07:48 Temperature 97.7 F 97.4 F Pulse Rate 78 89 Respiratory 22 18 18 Rate Blood Pressure 121/61 141/75 (mmHg) O2 Sat by Pulse 99 99 100 Oximetry Physical Exam: General: NAD, sitting up in a chair Neurological: Alert and Oriented HEENT: No thrush, Moist MM Cardiovascular: Heart rate regular, 3/6 systolic murmur heard best at the right upper sternal border Respiratory: Lung sounds clear Abdominal: Bowel sounds present; ABD soft, non tender and non distended MSK: No tenderness with palpation of the neck, back or spine. No joint edema, erythema, or effusions Skin: No rash Laboratory Results - last 24 hr 02/28/19 03/01/19 16:05 08:11 WBC 9.1 RBC 4.49 Hgb 14.3 Hct 43 MCV 96 H MCH 32 H MCHC 33 RDW 14 Plt Count 50 L MPV 10.9 H Neut % (Auto) 72.4 Lymph % (Auto) 17.3 Placer % (Auto) 9.0 Eos % (Auto) 0.8 Baso % (Auto) 0.5 Absolute Neuts (auto) 6.6 Absolute Lymphs (auto) 1.6 Absolute Monos (auto) 0.8 Absolute Eos (auto) 0.1 Absolute Basos (auto) 0.0 Absolute Nucleated RBC 0.0 Nucleated RBC % 0.0 Fluid Source Pleural fluid Fluid Volume 27 Fluid Color Yellow Fluid Appearance Cloudy Fluid WBC 834 Fluid RBC 388 Fluid Tot Cell Count 100 Fluid Neutrophils 52 Fluid Lymphocytes 48 Fluid Nucleated RBCs 0 Fluid Other Cells 17 Microbiology 02/26/19 10:36 Aerobic Blood Culture - Preliminary Blood Venous Anaerobic Blood Culture - Preliminary No Growth Day 3 Blood MRSA/MSSA (PCR) - Final Mrsa Negative S.aureus Positive 02/26/19 10:41 Aerobic Blood Culture - Preliminary Blood Venous No Growth Day 3 Anaerobic Blood Culture - Preliminary No Growth Day 3 02/28/19 09:55 Aerobic Blood Culture - Preliminary Blood Venous No Growth Day 1 Anaerobic Blood Culture - Preliminary No Growth Day 1 02/28/19 09:46 Aerobic Blood Culture - Preliminary Blood Venous No Growth Day 1 Anaerobic Blood Culture - Preliminary No Growth Day 1 02/26/19 10:00 Gram Stain - Final Sputum Expectorated Sputum Culture - Final Staphylococcus Aureus Normal Hortencia 02/28/19 16:05 Gram Stain - Preliminary Pleural Fluid 02/25/19 20:35 Urine Culture - Final Urine No Growth (<1,000 CFU/mL) 02/25/19 12:24 Aerobic Blood Culture - Final Blood Venous Staphylococcus Aureus Anaerobic Blood Culture - Final Staphylococcus Aureus Blood MRSA/MSSA (PCR) - Final Mrsa Negative S.aureus Positive 02/25/19 12:16 Aerobic Blood Culture - Final Blood Venous Staphylococcus Aureus Anaerobic Blood Culture - Final Staphylococcus Aureus Blood MRSA/MSSA (PCR) - Final Mrsa Negative S.aureus Positive 02/25/19 20:35 Legionella Urinary Antigen - Final Urine Negative Legionella Antigen Streptococcus pneumoniae Ag Screen - Final Negative S. pneumo Antigen Assessment: 1. MSSA bacteremia. Initial blood cultures with 4/4 bottles positive for staph aureus. Repeat blood cultures on 02/26 with 1/4 bottles positive for staph aureus. Repeat blood cultures from 02/28 with no growth on day 1. Sputum culture with staph aureus, this this represent colonization and not PNA. No joint edema , effusions, or erythema. No pain in the back or neck. Had a TAVR in October and a pacemaker placement. TTE and IRASEMA with no signs of vegetation. Suspect this represents endocarditis in the setting of a pacemaker. 2. Diarrhea. Reports multiple loose stools daily. Afebrile and no leukocytosis. Denies ABD pain. Suspect his may be secondary to Oxicillin. Hold on C-diff testing for now, can consider if no improvement in diarrhea after changing ABX. 3. Complex pleural effusion. This was present on TTE on in December 2018. S/P thoracentesis yesterday. No growth to date in the fluid. 4. Aortic stenosis and cardiomyopathy. S/P TAVR and pacemaker. Plan: Discontinue Oxicallin and start Ancef 2gm IV Q8H. Hold on PICC line for now, until repeat blood cultures are negative at least 48 hours. Will need weekly labs while on IV ABX: CBC, CMP, and CRP. Cardiology will discuss with housing development specialist in [place] about possible removal of pacemaker. 35 minutes floor time: >50% face to face with Pt and daughter discussing labs results, recommendations for possible removal of pacemaker, long course of IV ABX, diarrhea, and waiting for PICC line placement.
--- NOTE | 2019-03-01 12:47 | CONS ---
CC: Dr. Adali Davis; Dr. Oli Huerta; Dr. Can Saldivar * MEDICAL ONCOLOGY/HEMATOLOGY CONSULTATION NOTE: DATE OF CONSULT: 02/27/19 REASON FOR CONSULT: Thrombocytopenia. HISTORY OF PRESENT ILLNESS: Mk Conroy is an 88-year-old male, recently hospitalized with Staph aureus bacteremia. He was admitted to the hospital on 02/25/19. At that time, he had felt dizzy and lightheaded and had some nausea along with decreased oral intake and decreased energy. He presented to the emergency room the following day, was found to have a fever of 103 and was quite confused and lethargic. There was concern by his family that he might be having cardiac issues given his extensive previous cardiac issues and was found on admission to have severe sepsis with pneumonia. Transthoracic echocardiogram showed no vegetations. Blood cultures returned positive, 4/4 bottles positive for Staph aureus. Initially on admission, he did have an elevated white count of 14,900, which has subsequently improved back to the normal range as his infection has been treated. He moved to this area approximately 2 years ago to be in the same area as his daughter. He has laboratory studies in our hospital system in regard to CBC since August of 2018. Multiple blood counts done between August and October revealed platelet counts between 69,000 and 88,000. On admission, his platelet count was similar to this at 68,000, but subsequently has fallen to 48,000, 41, 000, and then on the day of this consultation 46,000. He does not have any other cytopenias associated with this; specifically no anemia, no leukopenia, and no neutropenia. He did have some nose-bleeds over the summer. He reports this is likely due to his house being dry and has had nosebleeds in the previous oneal as well. He denies any blood in the urine or blood in the stool. PAST MEDICAL HISTORY: He has been on blood thinners with Eliquis for approximately the last 3 to 4 years and before this, he was on a different blood thinner whose name he cannot remember. This appears to have been for atrial fibrillation which was diagnosed less than 10 years ago. He has remained on the Eliquis until the present time. History of aortic stenosis, cardiomyopathy, hypertension, hyperlipidemia. [facility] and status post [facility] pac[facility] September of 2018. He had full dental extractions done before the TAVR in September of 2018 as well without any major bleeding issues. PSA was approximately 15, was seen by Dr. Doe in September of 2016, but subsequent to starting the finasteride, it has fallen to a 4 as recently as last month. Also history of multiple basal cell skin cancer, there has been no other malignancies. MEDICATIONS: Prior to admission included: 1. Lasix 20 mg 3 times per week. 2. Sotalol 40 mg daily. 3. Finasteride 5 mg daily. 4. Atorvastatin 40 mg daily. 5. Eliquis 5 mg b.i.d. 6. Lisinopril 2.5 mg daily. 7. Zetia 10 mg daily. 8. Proscar 5 mg daily. 9. Guaifenesin p.r.n. Since in the hospital, he has also been started on oxacillin 2 g IV every 4 hours. ALLERGIES: None. FAMILY HISTORY: Father in his 40s of cardiac issues. Son at 51 of cardiac disease as well. No family history of malignancy other than mother with uterine cancer. No family history of any bleeding or bruising problems. 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 Former smoker, but only for approximately 10 years, quitting by age 31. Alcohol only occasional, never heavy in the past. REVIEW OF SYSTEMS: A 40- to 50-pound weight loss over the past 6 years. Energy level has been diminished since all the cardiac issues of the summer. No significant neurologic complaints. Has used the walker since his admission, but was walking independently prior to admission. No significant GI or complaints otherwise. PHYSICAL EXAM: An 88-year-old male in no acute distress. Vital Signs: Blood pressure 114/70, pulse 86, afebrile. HEENT: PERRL, EOMI. No erythema or exudates. No palpable cervical, supraclavicular, or axillary adenopathy. Lungs : Clear. Heart: Regular rate and rhythm, occasional extrasystoles. Abdomen: Soft and nontender. No masses or organomegaly. Extremities: Trace edema. DIAGNOSTIC STUDIES/LAB DATA: Imaging studies during the hospitalization have included a chest x-ray showing the pneumonia. No evidence for pneumothorax status post left thoracentesis. Liver ultrasound with no evidence for significant changes other than small hypoechoic lesions. CT scan of the chest performed in October of 2018 had not shown any significant splenomegaly or any adenopathy. Cardiomegaly was noted. Status post aortic valve repair. Laboratory studies besides the CBC and comprehensive metabolic profile, revealed normal LFTs and normal renal function. IMPRESSION: An 88-year-old male with extensive prior cardiac history who has been known to have low platelet count since August of 2018 and no antecedent counts before that to know whether or not this is more chronic or not. On admission to the hospital, his platelet count was similar to his baseline of 60, 000 to 80,000 over the past several months and had fallen to 41,000 and is currently 46,000. It is likely that 2 separate processes are going on in terms of his blood counts. It is likely that he has an underlying process that is leading to low platelets with other cell lines normal. This could include diagnoses such as myelodysplastic syndrome, PNH, ITP, HIV. He does not have any significant risk factors for HIV. He does not have any significant risk factors for hepatitis. Liver does not appear to be abnormal. He has never been on significant alcohol. There is no signs of any malignancy. He has no symptoms related to the rheumatologic condition such as systemic lupus erythematosus. This appears to have been stable prior to the hospitalization in an attempt to return to this range. There will not be any need for further workup of this as an outpatient as long as platelet counts stay over 50,000 to 60,000 chronically. During this admission, his platelet count has fallen significantly down to 41, 000 and currently 46,000. It is likely this is either secondary to sepsis and/ or to medications. Although, penicillins are not a common cause for thrombocytopenia, somewhere they are well reported to do so including the oxacillin. His platelet count continues to rise. There would be no reason to change antibiotics as his platelet counts remained in this range, as infection clears up, would ask Dr. Huerta whether there are other alternatives to oxacillin to best treat his current infection. He was on Eliquis prior to this admission with his platelet count in the 40,000 and is currently being held. Once his platelet count reaches 50,000 and does rise, Eliquis can safely be resumed. If platelet count reaches a level of at least about 60,000, there will be no need for any further hematologic followup other than to have his primary care physician continue to follow platelets in the future and let us know if they ever drop down below this level. If platelets remain less than 50, 000 on an extended basis, it may be worthwhile to do a bone marrow aspiration and biopsy to determine if he has underlying myelodysplastic syndrome or other potential infiltrative processes in the marrow. [id number]/CPS #: [id number] MTDD
[2019-03-01] MEDS ORDERED: ceFAZolin 2 GM PREMIX in ORs 2 GM/50 ML BAG IVPB SCH (14:00)
[2019-03-01] MEDS: ceFAZolin 2 GM in NS PREMIX(*) 2 GM/100 ML BAG IVPB SCH ×2 (14:05→22:13)
--- NOTE | 2019-03-01 20:07 | PN ---
Subjective Date of Service: 03/01/19 - CC: S. aureus sepsis. Interval History: I saw the patient with his daughter. The patient is feeling well now, much better than admission. Does get winded walking in the halls. Is not back to previous baseline. The room felt hot yesterday, but no overt fevers/chills. Medications Active Medications: Acetaminophen (Tylenol Tab*) 650 mg PO Q6H PRN PRN Reason: MILD PAIN or TEMP > 100.4 Last Admin: 02/25/19 20:55 Dose: 650 mg Apixaban (Eliquis*) 5 mg PO BID [facility] Atorvastatin Calcium (Lipitor*) 40 mg PO DAILY [facility] Last Admin: 03/01/19 09:44 Dose: 40 mg Ezetimibe (Zetia Tab*) 10 mg PO DAILY [facility] Last Admin: 03/01/19 09:44 Dose: 10 mg Finasteride (Proscar Tab*) 5 mg PO DAILY [facility] Last Admin: 03/01/19 09:44 Dose: 5 mg Guaifenesin (Robitussin 100 Mg/5ml Liq) 5 ml PO Q6H PRN PRN Reason: COUGH Cefazolin Sodium (Kefzol 2 Gm In Ns Premix(*)) 2 gm in 100 mls @ 200 mls/hr IVPB Q8H [facility] Last Admin: 03/01/19 14:05 Dose: 200 mls/hr Sotalol HCl (Betapace Tab*) 40 mg PO BID [facility] Last Admin: 03/01/19 09:44 Dose: 40 mg Objective Vital Signs: Temp Pulse Resp BP Pulse Ox 97.4 F 81 20 122/62 97 03/01/19 15:15 03/01/19 15:15 03/01/19 19:48 03/01/19 15:15 03/01/19 19:48 Vital Signs - 12 hr Temp Pulse Resp BP Pulse Ox 03/01/19 19:48 20 97 03/01/19 15:15 97.4 F 81 18 122/62 99 03/01/19 11:15 98.2 F 81 20 120/82 100 Oxygen Devices in Use Now: None Appearance: elderly male, seated, NAD. Eyes: No Scleral Icterus, PERRLA Ears/Nose/Mouth/Throat: Mucous Membranes Moist Neck: NL Appearance and Movements; NL JVP Respiratory: Symmetrical Chest Expansion and Respiratory Effort - diminished bs bases. Cardiovascular: RRR - no murmurs USB, 2/6 SM apex. Abdominal: NL Sounds; No Tenderness; No Distention Extremities: No Edema Skin: No Rash or Ulcers - midline sternotomy scar well healed, pacer site LEFT appears well healed, no flucuance, errythema. Neurological: Alert and Oriented x 3 Laboratory Results: 03/01/19 08:11 02/27/19 06:01 INR (Anticoag Therapy) 1.52 (0.82-1.09) H 02/25/19 12:16 Total Bilirubin 0.90 mg/dL (0.2-1.0) 02/28/19 05:44 Direct Bilirubin 0.30 mg/dL (0.03-0.18) H 02/28/19 05:44 Indirect Bilirubin 0.6 mg/dL (0.3-1.0) 02/28/19 05:44 AST 22 U/L (13-39) 02/28/19 05:44 ALT 15 U/L (7-52) 02/28/19 05:44 Alkaline Phosphatase 63 U/L (34-104) 02/28/19 05:44 B-Natriuretic Peptide > 1300 pg/mL (<=100) H 02/26/19 07:31 Total Protein 5.3 g/dL (6.4-8.9) L 02/28/19 05:44 Albumin 2.9 g/dL (3.2-5.2) L 02/28/19 05:44 Globulin 2.4 g/dL (2-4) 02/28/19 05:44 Albumin/Globulin Ratio 1.2 (1-3) 02/28/19 05:44 02/25/19 02/25/19 02/25/19 12:16 16:06 19:07 Troponin I 0.07 H* 0.09 H* 0.17 H* 02/26/19 07:31 Troponin I 0.16 H* Microbiology 02/26/19 10:36 Blood Venous Aerobic Blood Culture - Preliminary Staphylococcus Aureus 02/26/19 10:36 Blood Venous Anaerobic Blood Culture - Preliminary No Growth Day 3 02/26/19 10:36 Blood Venous Blood MRSA/MSSA (PCR) - Final Mrsa Negative S.aureus Positive 02/28/19 16:05 Pleural Fluid Gram Stain - Final 02/28/19 16:05 Pleural Fluid Body Fluid Culture - Preliminary No Growth Day 1 02/26/19 10:41 Blood Venous Aerobic Blood Culture - Preliminary No Growth Day 3 02/26/19 10:41 Blood Venous Anaerobic Blood Culture - Preliminary No Growth Day 3 02/28/19 09:55 Blood Venous Aerobic Blood Culture - Preliminary No Growth Day 1 02/28/19 09:55 Blood Venous Anaerobic Blood Culture - Preliminary No Growth Day 1 02/28/19 09:46 Blood Venous Aerobic Blood Culture - Preliminary No Growth Day 1 02/28/19 09:46 Blood Venous Anaerobic Blood Culture - Preliminary No Growth Day 1 02/26/19 10:00 Sputum Expectorated Gram Stain - Final 02/26/19 10:00 Sputum Expectorated Sputum Culture - Final Staphylococcus Aureus Normal Hortencia 02/25/19 20:35 Urine Urine Culture - Final No Growth (<1,000 CFU/mL) 02/25/19 12:24 Blood Venous Aerobic Blood Culture - Final Staphylococcus Aureus 02/25/19 12:24 Blood Venous Anaerobic Blood Culture - Final Staphylococcus Aureus 02/25/19 12:24 Blood Venous Blood MRSA/MSSA (PCR) - Final Mrsa Negative S.aureus Positive 02/25/19 12:16 Blood Venous Aerobic Blood Culture - Final Staphylococcus Aureus 02/25/19 12:16 Blood Venous Anaerobic Blood Culture - Final Staphylococcus Aureus 02/25/19 12:16 Blood Venous Blood MRSA/MSSA (PCR) - Final Mrsa Negative S.aureus Positive 02/25/19 20:35 Urine Legionella Urinary Antigen - Final Negative Legionella Antigen 02/25/19 20:35 Urine Streptococcus pneumoniae Ag Screen - Final Negative S. pneumo Antigen Diagnostic Imaging: - Aortic valve: There is a bioprosthetic valve. TAVR There is no evidence of a vegetation. There is no significant regurgitation. - Tricuspid valve: There is moderate regurgitation. - Pericardium, extracardiac: A trace pericardial effusion is identified. Findings Left ventricle: The cavity size is mildly dilated. Systolic function is moderately to severely reduced. The estimated ejection fraction is 30-35%. Global hypokinesis. Right ventricle: The cavity size is mildly dilated. Pacer wire noted in the right ventricle. No evidence of vegetation. Systolic function is normal. Left atrium: The atrium is severely dilated. There is no evidence of a thrombus in the atrial cavity or appendage. There is spontaneous echo contrast ("smoke"). Right atrium: The atrium is severely dilated. Pacer wire noted in right atrium. No evidence of vegetation. The Eustachian valve This report is only to be considered final once signed by the Provider(s) as displayed in the "<Electronically Signed by >" field (s). Absence of a signature indicates the report is in a draft status and still needs to be finalized. In the event this document was created by someone other than the signing Provider, the individual initiating the document will be listed in the "Entered by:" or "Dictated by:" bobby. Assessment/Plan 88 yo with hx TAVR 10/27/18 for , CAD currently on medical management, MR which may need a clip, [employer] pacer implanted in October of 2018 approx. admitted with sepsis due to S. aureus, improving with abx. ID: S. aureus source unclear based on IRASEMA, thoracentsis results to date of pleural effusion, CT's/imaging, but per ID they are concerned about pacer system infection and think this should be removed. The patient and daughter had many questions. Tentative plan would be to continue IV abx outpatient for 6 weeks. Outpatient f/u with EP at [facility] for evaluation. I explained that I did not implant, and I don't implant BiV devices, I would not explant this device myself. I reviewed the particulars of ideally having a few days at least w/o any pacer device to minimize the risk of infecting an new system. Explained that if the system were infected, primarily or secondarily and not explanted, the sepsis could recur, and greater resistance could occur (in answer to their questions). I will contact EP to coordinate f/u with them at [facility]. The patient was to have evaluation for MV/seth clip with Dr Martinez next week, this will be rescheduled for March or April. Greater than 45 minutes were spent with the patient, >50% was face to face.
[2019-03-01] MEDS: Apixaban* 5 MG TAB PO SCH (20:35)
[2019-03-02] MEDS: ceFAZolin 2 GM in NS PREMIX(*) 2 GM/100 ML BAG IVPB SCH ×3 (05:45→22:09)
[2019-03-02 05:50] LABS: ABS Eosinophils 0.1 10^3/ul (0-0.6); ABS Lymphocytes 2.5 10^3/ul (1.0-4.8); ABS Neutrophils 6.4 10^3/ul (1.5-7.7); Eosinophil % 1.2 %; Hematocrit 40 % (42-52); Hemoglobin 13.7 g/dL (14.0-18.0); Lymphocyte % 25.1 %; Mean Corpuscular HGB Conc 34 g/dL (31-36); Mean Corpuscular Hemoglobin 32 pg (27-31); Mean Corpuscular Volume 95 fL (80-94); Mean Platelet Volume 10.4 fL (7.4-10.4); Platelet Count 49 10^3/uL (150-450); Red Blood Count 4.26 10^6 /uL (4.18-5.48); Red Cell Distribution Width 14 % (10-15); White Blood Count 10.1 10^3/uL (3.5-10.8)
[2019-03-02 06:18] LABS: BUN/Creatinine Ratio 20.8 (8-20); Calcium 7.9 mg/dL (8.6-10.3); EGFR African American 84.5 (>60); EGFR Non-African American 69.9 (>60); Potassium 3.5 mmol/L (3.5-5.0)
--- NOTE | 2019-03-02 06:39 | PN ---
Subjective Date of Service: 03/02/19 Interval History: HD 6 on 03/02 No acute overnight events Vitals stable Patient was having breakfast and he was feeling good. Patient had loose stool since yesterday but no abdominal pain, nausea and vomiting and fever. He use to drink lactose free drink at home. Objective Active Medications: Acetaminophen (Tylenol Tab*) 650 mg PO Q6H PRN PRN Reason: MILD PAIN or TEMP > 100.4 Last Admin: 02/25/19 20:55 Dose: 650 mg Apixaban (Eliquis*) 5 mg PO BID [facility] Last Admin: 03/01/19 20:35 Dose: 5 mg Atorvastatin Calcium (Lipitor*) 40 mg PO DAILY [facility] Last Admin: 03/01/19 09:44 Dose: 40 mg Ezetimibe (Zetia Tab*) 10 mg PO DAILY [facility] Last Admin: 03/01/19 09:44 Dose: 10 mg Finasteride (Proscar Tab*) 5 mg PO DAILY [facility] Last Admin: 03/01/19 09:44 Dose: 5 mg Guaifenesin (Robitussin 100 Mg/5ml Liq) 5 ml PO Q6H PRN PRN Reason: COUGH Cefazolin Sodium (Kefzol 2 Gm In Ns Premix(*)) 2 gm in 100 mls @ 200 mls/hr IVPB Q8H [facility] Last Admin: 03/02/19 05:45 Dose: 200 mls/hr Sotalol HCl (Betapace Tab*) 40 mg PO BID [facility] Last Admin: 03/01/19 20:35 Dose: 40 mg Vital Signs - 8 hr 03/01/19 23:35 Temperature 97.7 F Pulse Rate 76 Respiratory 20 Rate Blood Pressure 124/78 (mmHg) O2 Sat by Pulse 96 Oximetry Oxygen Devices in Use Now: None Exam: Oxygen Devices in Use Now: None Appearance: well appearing elderly man in NAD Eyes: No Scleral Icterus Ears/Nose/Mouth/Throat: Clear Oropharnyx, Mucous Membranes Moist Neck: NL Appearance and Movements; NL JVP, Trachea Midline Respiratory: Symmetrical Chest Expansion and Respiratory Effort, Clear to Auscultation Cardiovascular: NL Sounds; soft Murmur on upper sternal border ; No JVD, RRR Abdominal: NL Sounds; No Tenderness; No Distention, No Hepatosplenomegaly Extremities: No Edema Skin: No Rash or Ulcers Neurological: Alert and Oriented x 3, NL Muscle Strength and Tone Result Diagrams: 03/02/19 05:29 03/02/19 05:29 Additional Lab and Data: Laboratory Tests 02/25/19 02/25/19 02/25/19 12:16 12:16 12:24 WBC 14.9 H Hgb 14.7 Hct 44 Plt Count 68 L INR (Anticoag Therapy) 1.52 H Sodium 137 Potassium 4.5 Chloride 101 Carbon Dioxide 25 Anion Gap 11 BUN 22 Creatinine 1.20 H Glucose 142 H Lactic Acid Calcium 9.5 Total Bilirubin 2.40 H AST 16 ALT 13 Alkaline Phosphatase 77 Troponin I 0.07 H* C-Reactive Protein 60.98 H 02/25/19 12:24 WBC Hgb Hct Plt Count INR (Anticoag Therapy) Sodium Potassium Chloride Carbon Dioxide Anion Gap BUN Creatinine Glucose Lactic Acid 2.5 H* Calcium Total Bilirubin AST ALT Alkaline Phosphatase Troponin I C-Reactive Protein Microbiology and Other Data: Microbiology 02/26/19 10:00 Gram Stain - Final Sputum Expectorated Sputum Culture - Preliminary Staphylococcus Aureus 02/26/19 10:41 Aerobic Blood Culture - Preliminary Blood Venous No Growth Day 1 Anaerobic Blood Culture - Preliminary No Growth Day 1 02/26/19 10:36 Aerobic Blood Culture - Preliminary Blood Venous No Growth Day 1 Anaerobic Blood Culture - Preliminary No Growth Day 1 02/25/19 20:35 Urine Culture - Final Urine No Growth (<1,000 CFU/mL) 02/25/19 12:24 Aerobic Blood Culture - Final Blood Venous Staphylococcus Aureus Anaerobic Blood Culture - Final Staphylococcus Aureus Blood MRSA/MSSA (PCR) - Final Mrsa Negative S.aureus Positive 02/25/19 12:16 Aerobic Blood Culture - Final Blood Venous Staphylococcus Aureus Anaerobic Blood Culture - Final Staphylococcus Aureus Blood MRSA/MSSA (PCR) - Final Mrsa Negative S.aureus Positive 02/25/19 20:35 Legionella Urinary Antigen - Final Urine Negative Legionella Antigen Streptococcus pneumoniae Ag Screen - Final Negative S. pneumo Antigen Diagnostic Imaging: Patient Name: HATTIE ATWOOD Medical Record#: [id number] Ordering Physician: Abdulkadir Coles MD Acct.#: [id number] : 1930 Age: 88 Sex: M Location: EMERGENCY DEPARTMENT Exam Date: 02/25/19 1204 ADM Status: REG ER Order Information: CHEST AP OR PORT Accession Number: [id number] CPT: 63712 INDICATION: Sepsis COMPARISON: November 02, 2018 chest radiograph TECHNIQUE: A portable view of the chest was obtained. FINDINGS: There is mild perihilar predominant airspace opacification. No large pleural effusion is identified. The enlarged cardiac silhouette, with a double density sign about the right heart border, is unchanged status post aVR. The vascular markings are prominent. Armida B lines are present. A left chest wall pacemakers in place. The upper abdominal contents are grossly unremarkable. The osseous structures are grossly unremarkable aside from degenerative changes. IMPRESSION: 1. Constellation of findings suggestive of mild mixed interstitial and alveolar pulmonary edema. Infiltrate can have a similar appearance. 2. Unchanged cardiomegaly status post aVR. 3. Left chest wall pacemaker in place. <Electronically signed by Raghu Og MD in OV> 02/25/19 1247 Dictated By: Raghu Og MD Dictated Date/Time: 02/25/19 1240 Transcribed Date/Time: 02/25/19 1240 EKG Data: Afib/V paced rhythm at 113 bpm, with no acute ischemic changes. 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 HAs pleural effusion-s/p thoracentesis - Patient Problems (1) MSSA bacteremia Comment: -Concerning for infective endocarditis with recent valve replacement and pacer insertion, but IRASEMA negative. -no clear source identified yet- sputum grows S. aureus but no infiltrates on Xray. - appreciate ID input- needs iv ancef for 6 weeks and probably pacer removal in [place] as an outpt. - iv ancef 2g [id number] on 03/02 - final culture result from 02/26 still growing S. aureus -will follow blood culture -PICC line ordered today; discussed with Dr. To (2) Atrial fibrillation Comment: -Rate controlled - restarting eliquis; as plt is 50,000 - cont sotalol (3) HTN (hypertension) Comment: - holding lisinopril and furosemide given recent sepsis - monitor BP and restart as needed (4) Hyperbilirubinemia Comment: -Acute on Chronic. 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 - cont to monitor (5) Retention of urine Comment: -resolved -UA clear, UCx negative. - likely due to underlying BPH - trial off romo 02/27 (6) Pleural effusion Current Visit: Yes Status: Acute Code(s): J90 - PLEURAL EFFUSION, NOT ELSEWHERE CLASSIFIED SNOMED Code(s): 94160070 Comment: -s/p thoracentesis- removed about 450 cc fluid-straw colored; slightly turbid -fluid wbc 834 with total count 100 and neutrophil 52 -pending fluid protein and LDH and culture -fluid gram laura- no organism (7) Thrombocytopenia Comment: -Chronic. Pt denies history of work up. - US showed cavernous hemangioma- no further workup at present; can follow as outpt -hepatitis negative -Appreciate hem input -Improving (8) Troponin level elevated Comment: -Suspect demand ischemia in the setting of severe sepsis, but patient does have a history of CAD. No events on tele. - appreciate cards input - DC tele on 02/27 (9) Liver hemangioma Current Visit: Yes Status: Acute Code(s): D18.03 - HEMANGIOMA OF INTRA- ABDOMINAL STRUCTURES SNOMED Code(s): 18063929 Comment: -Asymptomatic -multiple; largest measure 3.6 cm - Can be followed up as an outpatient with repeat imaging in 3-6 month. (10) DVT prophylaxis Comment: - Patient has score of 3 on the DVT prophylaxis risk guide. - eliquis restarted (11) Full code status Comment: - Code status d/w patient and he wishes to be Full code. Status and Disposition: Inpatient Medicine. CM working on outpt iv med availability and insurance Attending: Josselyn Day Attestation Documenting Resident: Wendy Early Supervising Physician: Josselyn Day Attending/Supervising Physician Comment: Was having loose stools, possibly from oxacillin but also having lactose in the hospital, which is new for him. No criteria med for C. diff. testing. Pending plan for abx on DC, as he does not have insurance coverage for home IV antibiotics. Attestation: This service has been performed in part by a resident under the direction of a teaching physician.I, Josselyn Day, performed the service, or was physically present during the critical, or franco portions of the service, furnished by the resident. I participated in the management of the patient.
[2019-03-02] MEDS: Ezetimibe TAB* 10 MG PO SCH (08:49)
[2019-03-02] MEDS: Finasteride TAB* 5 MG PO SCH (08:49)
[2019-03-02] MEDS: Apixaban* 5 MG TAB PO SCH ×2 (08:50→21:03)
[2019-03-02] MEDS: Sotalol TAB* 80 MG PO SCH ×2 (08:50→21:03)
[2019-03-02] MEDS: Atorvastatin* 40 MG TAB PO SCH (08:50)
--- NOTE | 2019-03-02 11:13 | PN ---
Progress Note - Progress Note Date of Service: 03/02/19 SOAP: Subjective: CC: bacteremia HPI: 88 year old man s/p TAVR and pacemaker with MSSA bacteremia. No cough or chest pain, had pleural fluid sampled. IRASEMA negative. No spine or joint pain. Feels well, no fever, rash or diarrhea. Objective: [] Vital Signs Temp 36.6 C 03/02/19 07:19 Pulse 76 03/02/19 07:19 Resp 18 03/02/19 09:12 BP 130/76 03/02/19 07:19 Pulse Ox 99 03/02/19 09:12 Intake & Output 03/01/19 03/02/19 03/02/19 18:59 06:59 18:59 Intake Total 2110 0 240 Output Total 100 Balance 2009 0 240 Weight 172 lb 9.6 oz Intake: IV Fluids 100 oxacillin 100 Oral 2009 0 240 Output: Urine 100 Other: # Bowel Movements 1 Estimated Stool Amount Large # Voids 1 Gen:awake, no distress HEENT: no thrush Heart:Regular normal S1, S2 Lungs:CTA BL Abd:+BS NTND soft Skin: no rash MSK: no spine tenderness, no pacer pocket erythema or tenderness Laboratory Results - last 24 hr 02/28/19 02/28/19 03/01/19 05:44 16:05 08:11 WBC RBC Hgb Hct MCV MCH MCHC RDW Plt Count MPV Neut % (Auto) Lymph % (Auto) [place] % (Auto) Eos % (Auto) Baso % (Auto) Absolute Neuts (auto) Absolute Lymphs (auto) Absolute Monos (auto) Absolute Eos (auto) Absolute Basos (auto) Absolute Nucleated RBC Nucleated RBC % Sodium Potassium Chloride Carbon Dioxide Anion Gap BUN Creatinine Est GFR ( Amer) Est GFR (Non-Af Amer) BUN/Creatinine Ratio Glucose Calcium Total Bilirubin 0.90 Direct Bilirubin 0.30 H Indirect Bilirubin 0.6 AST 22 ALT 15 Alkaline Phosphatase 63 Lactate Dehydrogenase Cancelled 211 C-Reactive Protein 56.27 H Total Protein 5.3 L Albumin 2.9 L Globulin 2.4 Albumin/Globulin Ratio 1.2 Fluid Cell Count Rvw By 03/02/19 03/02/19 05:29 05:29 WBC 10.1 RBC 4.26 Hgb 13.7 L Hct 40 L MCV 95 H MCH 32 H MCHC 34 RDW 14 Plt Count 49 L MPV 10.4 Neut % (Auto) 63.4 Lymph % (Auto) 25.1 Pennington % (Auto) 10.0 Eos % (Auto) 1.2 Baso % (Auto) 0.3 Absolute Neuts (auto) 6.4 Absolute Lymphs (auto) 2.5 Absolute Monos (auto) 1.0 H Absolute Eos (auto) 0.1 Absolute Basos (auto) 0.0 Absolute Nucleated RBC 0.0 Nucleated RBC % 0.0 Sodium 141 Potassium 3.5 Chloride 107 Carbon Dioxide 23 Anion Gap 11 BUN 21 Creatinine 1.01 Est GFR ( Amer) 84.5 Est GFR (Non-Af Amer) 69.9 BUN/Creatinine Ratio 20.8 H Glucose 98 Calcium 7.9 L Total Bilirubin Direct Bilirubin Indirect Bilirubin AST ALT Alkaline Phosphatase Lactate Dehydrogenase C-Reactive Protein Total Protein Albumin Globulin Albumin/Globulin Ratio Fluid Cell Count Rvw By Microbiology 02/26/19 10:41 Aerobic Blood Culture - Preliminary Blood Venous Anaerobic Blood Culture - Preliminary No Growth Day 4 02/26/19 10:36 Aerobic Blood Culture - Final Blood Venous Staphylococcus Aureus Anaerobic Blood Culture - Preliminary No Growth Day 4 Blood MRSA/MSSA (PCR) - Final Mrsa Negative S.aureus Positive 02/28/19 09:55 Aerobic Blood Culture - Preliminary Blood Venous No Growth Day 2 Anaerobic Blood Culture - Preliminary No Growth Day 2 02/28/19 16:05 Gram Stain - Final Pleural Fluid Body Fluid Culture - Preliminary No Growth Day 2 02/28/19 09:46 Aerobic Blood Culture - Preliminary Blood Venous No Growth Day 2 Anaerobic Blood Culture - Preliminary No Growth Day 2 02/26/19 10:00 Gram Stain - Final Sputum Expectorated Sputum Culture - Final Staphylococcus Aureus Normal Hortencia Assessment: 1. MSSA bacteremia; MSSA in sputum but with no infiltrate or symptoms of pneumonia, pleural fluid no growth, no MSK symptoms. Intravascular hardware a concern for focus of infection despite negative IRASEMA. 2. s/p TAVR and pacemeker 3. chronic thrombocytopenia, worse with infection 4. CAD 5. mitral regurgitation 6. diarrhea with oxacillin Plan: 1. ancef 2 gm IV Q8hrs day since negative BC. Rifampin drug-drug interactions preclude use with sotalol. AG not ideal at his age and is not evidence based. EP eval regarding device removal in setting of Staphylococcal bacteremia without clear source. Alternative is oral antibiotic suppression which is not evidence based either. 35 minutes floor time >50% face to face time in discussion regarding options for treatment of his Staphylococcal infection.
[2019-03-02 11:56] LABS: Fluid Type, Protein, Total PLEURAL
[2019-03-02 14:20] LABS: Fluid Type, Glucose PLEURAL
[2019-03-02 14:21] LABS: Lactate Dehydrogenase, BF 100 U/L
[2019-03-03 04:38] LABS: Hematocrit 37 % (42-52); Hemoglobin 12.7 g/dL (14.0-18.0); Mean Corpuscular HGB Conc 35 g/dL (31-36); Mean Corpuscular Hemoglobin 32 pg (27-31); Mean Corpuscular Volume 94 fL (80-94); Mean Platelet Volume 10.8 fL (7.4-10.4); Platelet Count 56 10^3/uL (150-450); Red Blood Count 3.92 10^6 /uL (4.18-5.48); Red Cell Distribution Width 14 % (10-15); White Blood Count 9.6 10^3/uL (3.5-10.8)
[2019-03-03 05:01] LABS: BUN/Creatinine Ratio 22.2 (8-20); Calcium 7.8 mg/dL (8.6-10.3); EGFR African American 109.1 (>60); EGFR Non-African American 90.1 (>60); Potassium 3.6 mmol/L (3.5-5.0)
[2019-03-03] MEDS: ceFAZolin 2 GM in NS PREMIX(*) 2 GM/100 ML BAG IVPB SCH (05:27)
--- NOTE | 2019-03-03 06:47 | PN ---
Subjective Date of Service: 03/03/19 Interval History: HD 7 on 03/03 No acute overnight events- PICC line placed yesterday Vitals stable Pleural fluid transudative; negative for malignancy Patient denies any symptom at present. He feels fine and has great energy. Eating well. Diarrhea resolved Objective Active Medications: Acetaminophen (Tylenol Tab*) 650 mg PO Q6H PRN PRN Reason: MILD PAIN or TEMP > 100.4 Last Admin: 02/25/19 20:55 Dose: 650 mg Apixaban (Eliquis*) 5 mg PO BID [facility] Last Admin: 03/02/19 21:03 Dose: 5 mg Atorvastatin Calcium (Lipitor*) 40 mg PO DAILY [facility] Last Admin: 03/02/19 08:50 Dose: 40 mg Ezetimibe (Zetia Tab*) 10 mg PO DAILY [facility] Last Admin: 03/02/19 08:49 Dose: 10 mg Finasteride (Proscar Tab*) 5 mg PO DAILY [facility] Last Admin: 03/02/19 08:49 Dose: 5 mg Guaifenesin (Robitussin 100 Mg/5ml Liq) 5 ml PO Q6H PRN PRN Reason: COUGH Heparin Sodium (Porcine) (Heparin Flush Picc/Ml/Cvc(*)) 1 - 3 ml FLUSH 0600, 1800 [facility]; Protocol Last Admin: 03/02/19 19:42 Dose: 1 ml Cefazolin Sodium (Kefzol 2 Gm In Ns Premix(*)) 2 gm in 100 mls @ 200 mls/hr IVPB Q8H [facility] Last Admin: 03/03/19 05:27 Dose: 200 mls/hr Sotalol HCl (Betapace Tab*) 40 mg PO BID [facility] Last Admin: 03/02/19 21:03 Dose: 40 mg Vital Signs - 8 hr 03/02/19 03/03/19 23:37 03:54 Temperature 98.5 F 98.2 F Pulse Rate 73 75 Respiratory 16 16 Rate Blood Pressure 140/76 139/74 (mmHg) O2 Sat by Pulse 99 100 Oximetry Oxygen Devices in Use Now: None Exam: Patient is lying on a bed with no acute distress HEENT: Normocephalic and atraumatic Lungs: CLear with no added sounds Heart: S1/S2 heard with murmur Abdomen: Sot, nondistended and nontender. Normal BS heard Extremitites: no swelling Neuro; alert, oriented and coperative Result Diagrams: 03/03/19 04:25 03/03/19 04:25 Additional Lab and Data: Laboratory Tests 02/25/19 02/25/19 02/25/19 12:16 12:16 12:24 WBC 14.9 H Hgb 14.7 Hct 44 Plt Count 68 L INR (Anticoag Therapy) 1.52 H Sodium 137 Potassium 4.5 Chloride 101 Carbon Dioxide 25 Anion Gap 11 BUN 22 Creatinine 1.20 H Glucose 142 H Lactic Acid Calcium 9.5 Total Bilirubin 2.40 H AST 16 ALT 13 Alkaline Phosphatase 77 Troponin I 0.07 H* C-Reactive Protein 60.98 H 02/25/19 12:24 WBC Hgb Hct Plt Count INR (Anticoag Therapy) Sodium Potassium Chloride Carbon Dioxide Anion Gap BUN Creatinine Glucose Lactic Acid 2.5 H* Calcium Total Bilirubin AST ALT Alkaline Phosphatase Troponin I C-Reactive Protein Microbiology and Other Data: Microbiology 02/26/19 10:00 Gram Stain - Final Sputum Expectorated Sputum Culture - Preliminary Staphylococcus Aureus 02/26/19 10:41 Aerobic Blood Culture - Preliminary Blood Venous No Growth Day 1 Anaerobic Blood Culture - Preliminary No Growth Day 1 02/26/19 10:36 Aerobic Blood Culture - Preliminary Blood Venous No Growth Day 1 Anaerobic Blood Culture - Preliminary No Growth Day 1 02/25/19 20:35 Urine Culture - Final Urine No Growth (<1,000 CFU/mL) 02/25/19 12:24 Aerobic Blood Culture - Final Blood Venous Staphylococcus Aureus Anaerobic Blood Culture - Final Staphylococcus Aureus Blood MRSA/MSSA (PCR) - Final Mrsa Negative S.aureus Positive 02/25/19 12:16 Aerobic Blood Culture - Final Blood Venous Staphylococcus Aureus Anaerobic Blood Culture - Final Staphylococcus Aureus Blood MRSA/MSSA (PCR) - Final Mrsa Negative S.aureus Positive 02/25/19 20:35 Legionella Urinary Antigen - Final Urine Negative Legionella Antigen Streptococcus pneumoniae Ag Screen - Final Negative S. pneumo Antigen Diagnostic Imaging: Patient Name: HATTIE ATWOOD Medical Record#: [id number] Ordering Physician: Abdulkadir Coles MD Acct.#: [id number] : 1930 Age: 88 Sex: M Location: EMERGENCY DEPARTMENT Exam Date: 02/25/19 120 ADM Status: REG ER Order Information: CHEST AP OR PORT Accession Number: [id number] CPT: 42990 INDICATION: Sepsis COMPARISON: November 02, 2018 chest radiograph TECHNIQUE: A portable view of the chest was obtained. FINDINGS: There is mild perihilar predominant airspace opacification. No large pleural effusion is identified. The enlarged cardiac silhouette, with a double density sign about the right heart border, is unchanged status post aVR. The vascular markings are prominent. Armida B lines are present. A left chest wall pacemakers in place. The upper abdominal contents are grossly unremarkable. The osseous structures are grossly unremarkable aside from degenerative changes. IMPRESSION: 1. Constellation of findings suggestive of mild mixed interstitial and alveolar pulmonary edema. Infiltrate can have a similar appearance. 2. Unchanged cardiomegaly status post aVR. 3. Left chest wall pacemaker in place. <Electronically signed by Raghu Og MD in OV> 02/25/19 1247 Dictated By: Raghu Og MD Dictated Date/Time: 02/25/19 1240 Transcribed Date/Time: 02/25/19 1240 EKG Data: Afib/V paced rhythm at 113 bpm, with no acute ischemic changes. 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 HAs pleural effusion-s/p thoracentesis - Patient Problems (1) MSSA bacteremia Status: Acute Code(s): R78.81 - BACTEREMIA SNOMED Code(s): 732403057 Comment: -Concerning for infective endocarditis with recent valve replacement and pacer insertion, but IRASEMA negative. -no clear source identified yet- sputum grows S. aureus but no infiltrates on Xray. - appreciate ID input- needs iv ancef for 6 weeks and probably pacer removal in [facility] as an outpt. - iv ancef 2g [id number] on 03/02 - final culture result from 02/26 still growing S. aureus -culture clear on 02/28 (2) Atrial fibrillation Status: Acute Code(s): I48.91 - UNSPECIFIED ATRIAL FIBRILLATION SNOMED Code( s): 59344183 Comment: -Rate in goal - restarting eliquis; as plt is 50,000 - cont sotalol (3) HTN (hypertension) Status: Acute Code(s): I10 - ESSENTIAL (PRIMARY) HYPERTENSION SNOMED Code(s) : 78889444 Comment: - holding lisinopril and furosemide given recent sepsis - monitor BP and restart as needed (4) Hyperbilirubinemia Status: Acute Code(s): E80.6 - OTHER DISORDERS OF BILIRUBIN METABOLISM SNOMED Code(s): 84726761 Comment: -Acute on Chronic. 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 - cont to monitor (5) Retention of urine Status: Acute Code(s): R33.9 - RETENTION OF URINE, UNSPECIFIED SNOMED Code(s ): 020916042 Comment: -resolved -UA clear, UCx negative. - likely due to underlying BPH - trial off romo 02/27 (6) Pleural effusion Status: Acute Code(s): J90 - PLEURAL EFFUSION, NOT ELSEWHERE CLASSIFIED SNOMED Code(s): 49819016 Comment: -s/p thoracentesis- removed about 450 cc fluid-straw colored; slightly turbid -fluid wbc 834 with total count 100 and neutrophil 52 -transudtive- most likely from heart failure -fluid gram laura- no organism -negative for malignancy (7) Thrombocytopenia Status: Acute Code(s): D69.6 - THROMBOCYTOPENIA, UNSPECIFIED SNOMED Code(s) : 424965344 Comment: -Chronic. Pt denies history of work up. - US showed cavernous hemangioma- no further workup at present; can follow as outpt -hepatitis negative -Appreciate hem input -Improving (8) Troponin level elevated Status: Acute Code(s): R79.89 - OTHER SPECIFIED ABNORMAL FINDINGS OF BLOOD CHEMISTRY SNOMED Code(s): 238083457 Comment: -Suspect demand ischemia in the setting of severe sepsis, but patient does have a history of CAD. No events on tele. - appreciate cards input - DC tele on 02/27 (9) Liver hemangioma Status: Acute Code(s): D18.03 - HEMANGIOMA OF INTRA-ABDOMINAL STRUCTURES SNOMED Code(s): 02722676 Comment: -Asymptomatic -multiple; largest measure 3.6 cm - Can be followed up as an outpatient with repeat imaging in 3-6 month. (10) DVT prophylaxis Status: Acute Code(s): Z29.9 - ENCOUNTER FOR PROPHYLACTIC MEASURES, UNSPECIFIED SNOMED Code(s): 408668000 Comment: - Patient has score of 3 on the DVT prophylaxis risk guide. - eliquis restarted (11) Full code status Status: Acute Code(s): Z78.9 - OTHER SPECIFIED HEALTH STATUS SNOMED Code(s) : 614657874 Comment: - Code status d/w patient and he wishes to be Full code. Status and Disposition: [facility] Attending: Josselyn Day Attestation Documenting Resident: Wendy Early Supervising Physician: Josselyn Day Attestation: This service has been performed in part by a resident under the direction of a teaching physician.I, Josselyn Day, performed the service, or was physically present during the critical, or franco portions of the service, furnished by the resident. I participated in the management of the patient.
[2019-03-03] MEDS: Finasteride TAB* 5 MG PO SCH (09:24)
[2019-03-03] MEDS: Atorvastatin* 40 MG TAB PO SCH (09:24)
[2019-03-03] MEDS: Apixaban* 5 MG TAB PO SCH (09:24)
[2019-03-03] MEDS: Sotalol TAB* 80 MG PO SCH (09:24)
[2019-03-03] MEDS: Ezetimibe TAB* 10 MG PO SCH (09:24)
[2019-03-03 11:59] VITALS: BP 114/84
--- NOTE | 2019-03-03 12:04 | DS ---
CC: Dr. Adali Davis; Dr. Oli Huerta; Dr. Can Saldivar; Dr. Jayda Magaña; Mirella Fitzgerald NP; Dr. Nunu Ponce DISCHARGE SUMMARY: DATE OF ADMISSION: 02/25/19 DATE OF DISCHARGE: 03/03/19 PRIMARY CARE PHYSICIAN: Adali Davis MD PRIMARY DIAGNOSES: 1. Methicillin-susceptible Staphylococcus aureus bacteremia. 2. Chronic thrombocytopenia. 3. Aortic stenosis status post transcatheter aortic valve replacement. 4. Atrial fibrillation status post permanent pacemaker. SECONDARY DIAGNOSES: 1. Cardiomyopathy with ejection fraction 25% to 30%. 2. Hypertension. 3. Mitral regurgitation. 4. Coronary artery disease 3 vessel. CONSULTS: Dr. Oli Huerta of Infectious Disease, Dr. Can Saldivar of Hematology, Dr. Jayda Magaña and Mirella Fitzgerald NP of Cardiology, Nunu Ponce MD of Pulmonology. PROCEDURE: Thoracentesis on 02/28/19 DISCHARGE MEDICATIONS: 1. Cefazolin 2 grams IV every 8 hours for 38 more days. 2. Apixaban 5 mg twice a day. 3. Atorvastatin 40 mg daily. 4. Ezetimibe 10 mg daily. 5. Finasteride 5 mg daily. 6. Sotalol 40 mg twice a day. 7. Furosemide 20 mg as needed for fluid retention. HISTORY OF PRESENT ILLNESS: Mr. Conroy is an 88-year-old man with atrial fibrillation, on Eliquis; aortic stenosis status post TAVR 11/14; cardiomyopathy with EF 25% to 30%, status post pacer; hypertension; mitral regurgitation; 3 vessel coronary artery disease; peripheral vascular disease, who presents with dyspnea and cough. The patient states he is usually very active and was doing well 4 days prior when he was cooking a large [employer] dinner for his family, however, on day prior to presentation he began to experience dry cough, malaise, and abdominal pain. At the end of the day, he experienced subjective fever with shortness of breath. His appetite was decreased throughout the day yesterday. He denies nausea, vomiting, diarrhea, or urinary complaints. His family convinced him to come to the emergency room on day of presentation. HOSPITAL COURSE: In the emergency room, the patient met severe sepsis criteria with concern of pneumonia as source of infection given his symptoms, although this was not seen on chest x-ray. He did have crackles in his right base. Blood and sputum cultures were sent and the patient was swabbed for influenza, which was negative. The patient also was noted to have a mild troponin elevation to 0.17 and this was thought likely secondary to demand ischemia in the setting of acute infection, and his lactate was 2.9, which improved with fluids. By next morning on first full day of admission. The patient's blood cultures resulted positive with MSSA bacteremia. He subsequently underwent transthoracic echocardiogram and transesophageal echocardiogram evaluation, which were not revealing of a vegetation. He was continued on IV oxacillin. Infectious Disease was consulted, who recommended to continue IV therapy and have discussion with the patient's rail filler in [place] for a possible removal of pacer leads given no other clear source of MSSA bacteremia. The patient was noted to have a mild left-sided pleural effusion, so a thoracentesis was performed, however, this was not loculated, there was no bacterial growth, and the fluid appeared to be transudative. The patient's urine was not concerning for infection and he had no evidence of skin or soft tissue infection. The patient eventually developed diarrhea on oxacillin, but was without recurrence of temperature or leukocytosis, and he had no abdominal pain or tenderness. Oxacillin was switched to cefazolin by ID and the patient' s diarrhea improved. The patient was also seen by cardiology team, who deferred further management to the patient's seaman in [place]. He was seen by his primary seaman in [place], Dr. Jayda Magaña, who recommended to continue management as per ID. She will contact EP to coordinate followup at [facility]. The patient will reschedule his consultation for mitral valve clipping with Dr. Gutierres for March or April after he completes antibiotics. The patient also was seen and evaluated by Dr. Saldivar of Hematology for decreasing platelets. Given the patient's history of thrombocytopenia, it was thought that he had a chronic underlying process that lead to low platelets , which acutely worsened in the setting of infection. He had a liver ultrasound and a hep C test which were unremarkable. They recommended no further workup if the patient's platelets returned to 50,000 or above and they recommended his Eliquis be restarted as long as his platelets are 50,000 or above. The patient had a PICC line placed over 48 hours after his blood cultures cleared. His insurance would not cover home infusions of antibiotics, so given the high expense of 6 weeks of outpatient IV antibiotics, options were explored with care home facility while the patient needs to complete this therapy. Case management team applied to [facility] and the patient was accepted. The day of discharge he was eager to leave the hospital and states he has felt back to baseline of health since about the second day of hospitalization. PERTINENT DIAGNOSTIC STUDIES: CBC with mild anemia at 12.7, with mild macrocytosis. BNP with creatinine 0.81 LFTs significant for total bilirubin 0.90 and discharge CRP 56. BNP over 1300. Pleural fluid with LDH 100, glucose 123 total protein 2.2. Serum LDH 211. Blood cultures with Staphylococcus aureus resistant to penicillin. Urine antigens for legionella and Strep pneumo negative. Sputum with Staphylococcus aureus. Urine cultures negative Chest x-ray with small left greater than right pleural effusion, resolution of Armida B line suggestive of decreased interstitial pulmonary edema, no focal airspace opacification. Cardiomegaly status post AVR with left chest wall pacemaker. Transthoracic echocardiogram with LV cavity size mildly to moderately dilated, wall thickness mildly increased systolic function reduced with EF 25% to 30% with severe diffuse hypokinesis. RV cavity size mildly dilated with systolic function normal. LA severely dilated, RA severely dilated. Mitral valve with [id number] regurgitation. Normally functioning bioprosthetic aortic valve replacement, no significant stenosis, no regurgitation. Pulmonary artery systolic pressure moderately to severely increased. Transesophageal echocardiogram: Right ventricular pacer wire noted, no evidence of vegetation. Right atrial pacer wire noted without evidence of vegetation. Mitral valve without evidence of vegetation. No evidence of vegetation on bioprosthetic aortic valve. Liver ultrasound: Bilobar subcentimeter hypoechoic lobulated structure, which may be shared services representative of cavernous hemangioma, further evaluation by triphasic abdominal CT or MRI is recommended. The liver is grossly normal in morphology, however, there is trace perihepatic ascites, simple hepatic cyst is noted. The normal-appearing gallbladder contains sludge, simple right renal cyst, small right pleural effusion. EKG with V paced rate 71 with PVCs and possible underlying A-flutter. DISCHARGE PLAN: The patient will be discharged to [facility] for care home care while on IV antibiotics. He should continue on cefazolin 2 grams every 8 hours IV to complete a 6 week course. He should follow up with Oli Huerta in [facility] as an outpatient. While on IV antibiotics, he will need weekly labs including a CBC, CMP, and CRP for pacemaker. Outpatient seaman will discuss with patient accounts specialist in [place] about possible removal of wires. The patient will continue to follow up with his primary seaman in [place] Dr. Jayda Magaña. She should continue apixaban and sotalol for AFib, atorvastatin and ezetimibe for coronary artery disease. The patient can also continue furosemide 20 mg daily as needed for fluid retention, although he did not require this in the hospital. The patient should eat a healthy diet, low in processed foods and he should continue activity as tolerated. Him and his daughter were educated on return precautions, which include but are not limited to recurrence of fever, cough, shortness of breath or new symptoms of chills, night sweats, rash, nausea vomiting, or diarrhea. DISPOSITION: To [facility]. CONDITION: Good. TIME SPENT: Apparently 60 minutes was spent on discharge of this patient. More than of which was spent on care coordination at bedside and for interview and exam. [id number]/CPS #: [id number] [facility]
== END 2019-03-03 12:01 | DRG 871 ==
LOC: ED 11:44 → MEDTELE 13:32
PROVIDERS: ADMIT Internal Medicine; ATTEND Internal Medicine
PROC: B246ZZ4 Ultrasonography of Right and Left Heart, Transesophageal (ICD-10-PCS; 2019-02-27)
PROC: 0W9B3ZX Drainage of Left Pleural Cavity, Percutaneous Approach, Diagnostic (ICD-10-PCS; principal; 2019-02-28)
PROC: 02HV33Z Insertion of Infusion Device into Superior Vena Cava, Percutaneous Approach (ICD-10-PCS; 2019-03-02)
DX: A41.01 Sepsis due to Methicillin susceptible Staphylococcus aureus (principal); J15.211 Pneumonia due to Methicillin susceptible Staphylococcus aureus; E87.2 Acidosis; I42.9 Cardiomyopathy, unspecified; I13.0 Hypertensive heart and chronic kidney disease with heart failure and stage 1 through stage 4 chronic kidney disease, or unspecified chronic kidney disease; I24.8 Other forms of acute ischemic heart disease; I50.20 Unspecified systolic (congestive) heart failure; R18.8 Other ascites; K52.1 Toxic gastroenteritis and colitis; R65.20 Severe sepsis without septic shock; D69.6 Thrombocytopenia, unspecified; I95.9 Hypotension, unspecified; N18.3 Chronic kidney disease, stage 3 (moderate); T36.0X5A Adverse effect of penicillins, initial encounter; I48.91 Unspecified atrial fibrillation; E78.5 Hyperlipidemia, unspecified; I25.10 Atherosclerotic heart disease of native coronary artery without angina pectoris; E80.6 Other disorders of bilirubin metabolism; E80.4 Gilbert syndrome; D18.03 Hemangioma of intra-abdominal structures; I08.1 Rheumatic disorders of both mitral and tricuspid valves; I73.9 Peripheral vascular disease, unspecified; R33.9 Retention of urine, unspecified; R74.8 Abnormal levels of other serum enzymes; I44.7 Left bundle-branch block, unspecified; Z95.0 Presence of cardiac pacemaker; Z95.2 Presence of prosthetic heart valve; Z83.3 Family history of diabetes mellitus; Z82.49 Family history of ischemic heart disease and other diseases of the circulatory system; Z87.891 Personal history of nicotine dependence; Z79.01 Long term (current) use of anticoagulants; Z79.1 Long term (current) use of non-steroidal anti-inflammatories (NSAID); Z79.899 Other long term (current) drug therapy; Z85.828 Personal history of other malignant neoplasm of skin
CPT/HCPCS: 36415; 71045; 71046; 76604; 76705; 80048; 80053; 80076; 81003; 81015; 82945; 83605; 83615; 83880; 83986; 84157; 84484; 85025; 85027; 85610; 86140; 86803; 87040; 87070; 87077; 87086; 87150; 87186; 87205; 87899; 88112; 89051; 93005; 93306; 93312; 93325; 99156; 99157; 99284; A9270-GY; G8978-GP-CI; G8979-GP-CI; G8980-GP-CI; J0690; J0696; J2250; J2310; J2700; J3010

== ENCOUNTER 2019-04-15 10:09 | Emergency (ER) | payer MEDICARE, OTHER ==
--- NOTE | 2019-04-15 10:21 | ED ---
Complex/Multi-Sys Presentation - HPI Summary HPI Summary: This patient is an 88 year old male accompanied by his daughter presenting to [facility] with a chief complaint of concern for recurrent sepsis. The patient was recently admitted for sepsis secondary to pneumonia with positive MSSA bacteremia. Patient had vertigo last night and has had it since the antibiotics started 6 weeks ago. The patient states he experienced confusion with the vertigo and states it happened when he first woke up and occurred multiple times throughout the night. Per medical records, he had an ECHO that did not show vegetations. He had thoracentesis that was negative for infection and had a PICC line placed to administer IV antibiotics, over concerns for infection involving his pacemaker. He has a Hx of TAVR and AFIB and is on eliquis. The patient states he is on 6 week antibiotic which he finished on Wednesday for the prior infection and PICC line was removed. He had blood culture on Wednesday comeback positive for Staph aureas. Dr. Huerta, Infectious Disease, is caring for the patient and per daughter the current hypothesis is that the infection is involving his pacemaker wires. Pacemaker and TAVR were both placed in October. 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 Patient's daughter states she would like to drive the patient to [place] after being evaluated stabilized, and admitted here for IV antibiotic treatment, in accordance to a plan made in consultation with Dr. Huerta. He had positive cultures 02/25-02/26 for Staph Aureas, then negative on 03/13, until 04/14/19 positive again for the same bacteria. Home Medications Eliquis 5 mg Ezetimibe 10 mg Lipitor 40 mg Metoprolol 50 mg Amiodarone 250 mg - History Of Current Complaint Hx Obtained From: Patient, Family/Marketing Systems Analyst, Medical Records Onset/Duration: Lasting Weeks Timing: Weeks Associated Signs And Symptoms: Positive: Dizziness - Allergies/Home Medications Allergies/Adverse Reactions: Allergies Allergy/AdvReac Type Severity Reaction Status Date / Time No Known Allergies Allergy Verified 04/15/19 10:20 PMH/Surg Hx/FS Hx/Imm Hx Endocrine/Hematology History: Denies: Hx Diabetes Cardiovascular History: Reports: Hx Atrial Fibrillation, Hx Coronary Artery Disease, Hx Hypercholesterolemia, Hx Hypertension - CONTROLLED BY MEDS., Hx Pacemaker/ICD, Hx Valvular Heart Disease Denies: Hx Angina, Hx Myocardial Infarction Respiratory History: Denies: Hx Asthma, Hx Chronic Obstructive Pulmonary Disease (COPD) History: Denies: Hx Chronic Renal Failure, Hx Renal Disease Musculoskeletal History: Reports: Hx Arthritis - fingers and knees Sensory History: Reports: Hx Contacts or Glasses Denies: Hx Cataracts, Hx Hearing Aid Comment Only: Hx Deafness - Pt states he left hearing aids at home Opthamlomology History: Reports: Hx Contacts or Glasses Denies: Hx Cataracts Neurological History: Denies: Hx Dementia - Surgical History Surgery Procedure, Year, and Place: TAVR 2019 in [place]. Pacemaker - Family History Known Family History: Positive: Cardiac Disease - Social History Alcohol Use: Occasionally Alcohol Amount: 2-3 drinks/week Hx Substance Use: No Substance Use Type: Reports: None Hx Tobacco Use: Yes Smoking Status (MU): Former Smoker Type: Cigarettes Have You Smoked in the Last Year: No Review of Systems Negative: Fever Neurological: Other - Vertigo, Confusion All Other Systems Reviewed And Are Negative: Yes Physical Exam - Summary Physical Exam Summary: Constitutional: Well-developed, Well-nourished, Alert. (-) Distressed Skin: Warm, Dry HENT: Normocephalic; Atraumatic Eyes: Conjunctiva normal Neck: Musculoskeletal ROM normal neck. (-) JVD, (-) Stridor, (-) Nuchal rigidity Cardio: Rhythm regular, rate normal, Heart sounds normal; Intact distal pulses; Radial pulses are 2+ and symmetric. (-) Murmur Pulmonary/Chest wall: Effort normal. (-) Respiratory distress, (-) Wheezes, (-) Rales Abd: Soft, (-) tenderness, (-) Distension, (-) Guarding, (-) Rebound Musculoskeletal: (-) Edema. RUE old PICC site. Lymph: (-) Cervical adenopathy Neuro: Alert, PERRL, Oriented x3, Strength normal, Cranial nerves II-XII are grossly intact. SILT, Strength 5/5 BUE and BLE, (-) Dysmetria, (-) Nystagmus, ambulates w steady gait. Psych: Mood and affect Normal Triage Information Reviewed: Yes Vital Signs On Initial Exam: Temp Pulse Resp BP Pulse Ox 99.4 F 72 20 165/92 98 04/15/19 10:12 04/15/19 10:12 04/15/19 10:12 04/15/19 10:12 04/15/19 10:12 Vital Signs Reviewed: Yes Procedures - Sedation Patient Received Moderate/Deep Sedation with Procedure: No Diagnostics - Laboratory Result Diagrams: 04/15/19 11:07 04/15/19 11:07 Lab Statement: Any lab studies that have been ordered have been reviewed, and results considered in the medical decision making process. - EKG 1049 Cardiac Rate: NL - 83 BPM EKG Comparison: No Significant Change Summary of EKG Findings: Ventricularly paced rhythm. No significant changes from 02/26/19. Dr. Sánchez has reviewed and interpreted this EKG. Complex Multi-Symp Course/Dx Course Of Treatment: 88 y/o male w hx pacemaker and TAVR at [facility] p/ w positive BC. - afebrile. VSS, no leukocytosis. D/w Dr. Jeronimo, advises ancef , transfer to [facility] for pacemaker removal. D/w cardiology (Dr. Harrington at [facility]) who accepts pending hospitalist acceptance. Dr. Roe accepts to tele floor. Patient unable to come via [facility] 04/30 [facility] policy. Will send by ambulance. - regarding episodes of vertigo (possibly in sleep), normal electrolytes, stable Hb. CT head neg. normal neuro exam. Likely peripheral vertigo. - Diagnoses Provider Diagnoses: Infected pacemaker, MSSA bacteremia, Vertigo - Physician Notifications Discussed Care Of Patient With: Oli Huerta MD Time Discussed With Above Provider: 11:02 - He needs to be on ancef and transferred to [facility]. Instructed by Provider To: Transfer Discharge ED - Sign-Out/Discharge Documenting (check all that apply): Patient Departure - Transfer, accepted by Dr. Banuelos, Cardiology at [facility], Accepted by Dr. Roe, [facility] Hospitalist. - Discharge Plan Condition: Stable Disposition: TRANS HIGHER LVL OF CARE FAC Referrals: Adali Davis MD [Primary Care Provider] - - Billing Disposition and Condition Condition: STABLE Disposition: Trans Higher Lvl of Care Fac - Attestation Statements Document Initiated by Scribe: Yes Documenting Scribe: Asim Mazariegos Provider For Whom Scribe is Documenting (Include Credential): Dario Sánchez MD Scribe Attestation: Asim Estevez, scribed for Dario Sánchez MD on 04/15/19 at 1336. Scribe Documentation Reviewed: Yes Provider Attestation: The documentation as recorded by the scribe, Asim Mazariegos accurately reflects the service I personally performed and the decisions made by me, Dario Sánchez MD Status of Scribe Document: Viewed
[2019-04-15] MEDS ORDERED: ceFAZolin 2 GM PREMIX in ORs 2 GM/50 ML BAG IVPB ONE (11:02)
[2019-04-15 11:14] LABS: ABS Basophils 0.1 10^3/ul (0-0.2); ABS Eosinophils 0.1 10^3/ul (0-0.6); ABS Lymphocytes 0.7 10^3/ul (1.0-4.8); ABS Monocytes 0.4 10^3/ul (0-0.8); Hematocrit 37 % (42-52); Hemoglobin 12.3 g/dL (14.0-18.0); Lymphocyte % 7.1 %; Mean Corpuscular HGB Conc 34 g/dL (31-36); Mean Corpuscular Hemoglobin 33 pg (27-31); Mean Corpuscular Volume 98 fL (80-94); Mean Platelet Volume 10.2 fL (7.4-10.4); Platelet Count 88 10^3/uL (150-450); Red Blood Count 3.74 10^6 /uL (4.18-5.48); Red Cell Distribution Width 16 % (10-15); White Blood Count 9.3 10^3/uL (3.5-10.8)
[2019-04-15 11:33] LABS: Albumin 3.6 g/dL (3.2-5.2); Albumin/Globulin Ratio 1.2 (1-3); BUN/Creatinine Ratio 15.9 (8-20); Calcium 8.9 mg/dL (8.6-10.3); EGFR African American 79.1 (>60); EGFR Non-African American 65.4 (>60); Globulin 3.1 g/dL (2-4); Potassium 4.4 mmol/L (3.5-5.0); Total Bilirubin 1.2 mg/dL (0.2-1.0); Total Protein 6.7 g/dL (6.4-8.9)
[2019-04-15] MEDS ORDERED: Amiodarone TAB* 200 MG PO ONE (12:52)
[2019-04-15] MEDS ORDERED: Atorvastatin* 40 MG TAB PO ONE (12:53)
[2019-04-15] MEDS ORDERED: Metoprolol Succinate XL TAB* 50 MG PO ONE (12:53)
[2019-04-15] MEDS ORDERED: Ezetimibe TAB* 10 MG PO ONE (12:53)
[2019-04-15] MEDS ORDERED: Apixaban* 5 MG TAB PO ONE (13:00)
[2019-04-15] MEDS ORDERED: Finasteride TAB* 5 MG PO ONE (13:30)
[2019-04-15 14:38] VITALS: BP 135/83
== END 2019-04-15 15:29 | disposition short-term general hospital (02) ==
LOC: ED 10:09
DX: T82.7XXA Infection and inflammatory reaction due to other cardiac and vascular devices, implants and grafts, initial encounter (principal); B95.61 Methicillin susceptible Staphylococcus aureus infection as the cause of diseases classified elsewhere; R42 Dizziness and giddiness; I10 Essential (primary) hypertension; I48.91 Unspecified atrial fibrillation; Z79.01 Long term (current) use of anticoagulants; Z87.891 Personal history of nicotine dependence
CPT/HCPCS: 36415; 70450; 80053; 83735; 85025; 93005; 96365; 96366; 99285; A9270-GY; J0690

== ENCOUNTER 2019-06-07 06:08 | Day surgery (SDC) | payer MEDICARE, OTHER ==
[~2019-06-07 06:08] MED LIST changes: +Acetaminophen TAB* 325 MG PO PRN; +Buffered Lidocaine 1% SYRIN* 1 ML/SYRINGE INTRADERM ONE; -Heparin 2 UNITS/ML IVPREMIX* 3,000 UNIT/1,500 ML BAG IV ONE; -Heparin(*) 1000 UNIT/ML 10 ML VIAL CATH LAB IV ONE; -Iohexol 350 (CONTRAST) 200 ML MDV IV ONE; -Lidocaine 1% INJ* 10 MG/ML 30 ML SDV ONE; -Midazolam* 1 MG/ML 5 ML VIAL (5 MG) ONE; -NS 0.9% 1000 ML** 1,000 ML IV SCH; -VERAPAMIL 2.5 MG/ML 2 ML VIAL ** 5 mg/2 ml ONE; -fentaNYL* 50 MCG/ML 2 ML VIAL (100 MCG VIAL) ONE; -nitroGLYCERIN DRIP* 25,000 MCG/250 ML BTL ONE
[2019-06-07] MEDS ORDERED: Midazolam* 1 MG/ML 2 ML VIAL (2 MG) ONE (07:25)
[2019-06-07 07:59] VITALS: BP 129/62
[2019-06-07] MEDS ORDERED: acetaZOLAMIDE TAB* 250 MG ONE (10:01)
[2019-06-07] MEDS ORDERED: Povidone Iodine 5% OPTH* 30 ML BTL ONE (10:01)
[2019-06-07] MEDS ORDERED: Lidocaine 1% MPF ** 5 ML VIAL ONE (10:01)
[2019-06-07] MEDS ORDERED: Phenylephrine OPHTH SOL 2.5%* 2 ML ONE (10:01)
[2019-06-07] MEDS ORDERED: Cyclopentolate 1% OPTH.SOL* 2 ML BTL ONE (10:01)
[2019-06-07] MEDS ORDERED: Proparacaine 0.5% OPHTH.SOL* 15 ML BTL ONE (10:01)
[2019-06-07] MEDS ORDERED: Ketorolac 0.5% OPHTH (NF) 0.5 % 5 ML BTL ONE (10:01)
[2019-06-07] MEDS ORDERED: Lidocaine 2% w/ EPI 1:200,000* 20 ML SDV VIAL ONE (10:01)
[2019-06-07] MEDS ORDERED: Neomycin/Polymy/Dex OPTH.SUSP* MAXITROL 0.1% 5 ML ONE (10:01)
--- NOTE | 2019-06-07 16:33 | OP ---
DATE OF OPERATION: 06/07/2019 - [facility] DATE OF : 1930. SURGEON: Mati Zendejas M.D. PREOPERATIVE DIAGNOSIS: Cataract right eye. POSTOPERATIVE DIAGNOSIS: Cataract right eye. OPERATIVE PROCEDURE: Extracapsular cataract extraction with intraocular lens implant right eye. DESCRIPTION OF PROCEDURE: The patient was brought to the operating room after being given 1/2% Alcaine with epinephrine drops in the preoperative area. The eye was prepped and draped in the usual sterile fashion. Sterile drape and eyelid speculum were placed. Again, topical 1/2% Alcaine with epinephrine was given. A paracentesis incision was made at the 9 o'clock position with the No.75 blade. Clear cornea incision 2.2 x 2.2-mm was created at the 12 o'clock position starting at the anterior limbus using the 2.2-mm keratome. The anterior chamber was irrigated with 0.4 mL of 1% non-preservative intracameral lidocaine and filled with DisCoVisc. A capsulorrhexis was completed using the cystotome and the Utrata forceps. Hydrodissection was performed with balanced salt solution. The lens nucleus was removed with the Phacoemulsification handpiece without incident. Cortex was removed with the irrigation-aspiration handpiece. The capsular bag was re-inflated using DisCoVisc and an [id number] implant was inserted with the shooter. The irrigation-aspiration handpiece was used to remove all residual DisCoVisc. The eye was refilled with balanced salt solution and the wound checked and found to be watertight. Topical Maxitrol drops were given. [id number]/[facility] #: [id number] [facility]
== END 2019-06-07 08:06 | disposition home or self-care (01) ==
LOC: OREAST 06:08
PROVIDERS: ATTEND Specialist
DX: H25.811 Combined forms of age-related cataract, right eye (principal); I42.9 Cardiomyopathy, unspecified; I48.0 Paroxysmal atrial fibrillation; I11.0 Hypertensive heart disease with heart failure; I50.42 Chronic combined systolic (congestive) and diastolic (congestive) heart failure; R26.89 Other abnormalities of gait and mobility; R94.31 Abnormal electrocardiogram [ECG] [EKG]; Z95.2 Presence of prosthetic heart valve; Z87.891 Personal history of nicotine dependence; Z79.01 Long term (current) use of anticoagulants
CPT/HCPCS: A9270-GY; J2250; V2632